=== PATIENT | male | born 1950 | race Caucasian/White ===

== ENCOUNTER 2016-10-16 11:40 | Inpatient (IN) | payer MEDICARE, BC ==
[~2016-10-16 11:40] MED LIST: Lactated Ringers 1,000 ML IV SCH; Lidocaine 1%/Sod Bicarbonate in NS 8.4% 1 ML Syringe PRN; Sodium Chloride 0.9% 10 ML Syringe FLUSH PRN
--- NOTE | 2016-10-16 13:02 | PCM.PREANE ---
Preanesthetic Assessment - Anesthesia/Transfusion/Family Hx Anesthesia History: No Prior Anesthesia Other Type of Anesthesia Reaction Comment: pt denies other reactions Family History of Anesthesia Reaction: No Transfusion History: No Prior Transfusion(s) - Review of Systems General: No Symptoms Pulmonary: No Symptoms Cardiovascular: No Symptoms Gastrointestinal: No Symptoms Neurological: Other (born with a stroke- cp) Other: Reports: Diabetes (borderline) - Physical Assessment NPO Status Date: 10/16/16 NPO Status Time: 03:30 O2 Sat by Pulse Oximetry: 99 Respiratory Rate: 16 Vital Signs: Last Vital Signs Temp 97.5 F 10/16/16 11:55 Pulse 64 10/16/16 11:55 Resp 16 10/16/16 11:55 BP 132/72 10/16/16 11:55 Pulse Ox 99 10/16/16 11:55 Height: 5 ft 7 in Weight: 71.35 kg ASA Class: 3 Mental Status: Alert & Oriented x3 Dentition: Reports: Dentures (top and bottom) Thyro-Mental Finger Breadths: 3 Mouth Opening Finger Breadths: 3 ROM/Head Extension: Full Lungs: Clear to Auscultation, Normal Respiratory Effort Cardiovascular: Regular Rate, Regular Rhythm - Lab Values: Laboratory Last Values POC Glucose 101 mg/dL (80-115) 10/16/16 12:11 - Imaging/EKG Impressions: 09/29/16 EKG SB 59 09/29/16 CXR interval right reverse TSA- late and screw cervical spine- left lung clear - Allergies Allergies/Adverse Reactions: Allergies Allergy/AdvReac Type Severity Reaction Status Date / Time meloxicam [From Mobic] Allergy Edema Verified 10/13/16 13:46 - Blood Blood Available: No - Acknowledgements Anesthesia Type Planned: Spinal (education given- agrees to spinal- will proceed to ga if unable to place spinal or at any time patient requests. Patient requests to be very sleepy) Pt an Appropriate Candidate for the Planned Anesthesia: Yes Alternatives and Risks of Anesthesia Discussed w Pt/Guardian: Yes Pt/Guardian Understands and Agrees with Anesthesia Plan: Yes PreAnesthesia Questionnaire Other HEENT History: hx candidal esophogitis, has glasses, dentures, dysphagia Cardiovascular History: Reports: High Cholesterol, Hypertension, Other (See Below) Other Cardiovascular History: bradycardia Respiratory History: Reports: None Gastrointestinal History: Reports: GERD Other Gastrointestinal History: hepatic hemangioma, dysphagia Genitourinary History: Reports: Renal Calculus Other Genitourinary History: hx renal insufficiency, Renal cyst R, malignant neoplasm of bladder, hematuria [employer] History: Reports: None Musculoskeletal History: Reports: Osteoarthritis, RA Other Musculoskeletal History: degenerative joint disease, several foot surgeries, carpal tunnel and R thumb surgery, elbow surgery, unilateral rotator cuff surgery, neck surgery C5-6-7, lapidus procedure, metatarsal osteomy with screw fixation to foot, capsulorrhaphy to 1st metatarsophalangeal joint, revision failed fusion of lapidus bunionectomy at the 1st metatarsal cuniform joint, L3 L4 hemilaminotomy, facetectomy, and decompression in the cauda equina for lateral recess and central spinal stenosis Neurological History: Reports: Cerebral Palsy, CVA, Migraines Other Neuro History: porencephalic cyst, 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 - Past Surgical History Head Surgeries/Procedures: Reports: None HEENT Surgical History: Reports: Cataract Surgery Other HEENT Surgeries/Procedures: full mouth/teeth extractions Cardiovascular Surgical History: Reports: None Respiratory Surgical History: Reports: None GI Surgical History: Reports: Appendectomy, Cholecystectomy, Colonoscopy, EGD, Hernia Repair/Other, Ella Fundoplication Other GI Surgeries/Procedures: lysis of adhesions, lap ella fundiplication Male Surgical History: Reports: None Endocrine Surgical History: Reports: None Neurological Surgical History: Reports: Other (See Below) Other Neurological Surgeries/Procedures: C5,6,7 SURGERY, L3L4 SURGERY Musculoskeletal Surgical History: Reports: Arthroscopic Procedure, Hip Replacement, Shoulder Surgery, Other (See Below) (heel cord lengthen left foot- bumion surgery) Other Musculoskeletal Surgeries/Procedures:: Left hip replaced in 2011, revision in 2014, neck surgery, foot surgery. Right shoulder revision 3-21-16. Oncologic Surgical History: Reports: None Dermatological Surgical History: Reports: Skin Biopsy - SUBSTANCE USE Smoking Status *Q: Former Smoker (quit 2002) Tobacco Use Within Last Twelve Months: No Second Hand Smoke Exposure: No Days Per Week of Alcohol Use: 0 Number of Drinks Per Day: 0 Total Drinks Per Week: 0 Recreational Drug Use History: No - HOME MEDS Home Medications: Home Meds Cholestyramine/Sucrose [Cholestyramine Powder] 4 gm PO DAILY 05/30/13 [History] Carbidopa/Levodopa [Carbidopa-Levodopa 25-100 Tab] 1 tab PO TID 12/07/14 [ History] ClonazePAM [KlonoPIN] 0.5 mg PO BEDTIME 10/13/16 [History] Nystatin [Nystatin] 1 dose PO QID 10/13/16 [History] Pantoprazole Sodium [Protonix] 40 mg PO DAILY 10/13/16 [History] Rosuvastatin Calcium [Rosuvastatin Calcium] 5 mg PO DAILY 10/13/16 [History] amLODIPine [Norvasc] 5 mg PO BEDTIME 10/13/16 [History] rOPINIRole HCl [Requip XL] 6 mg PO BEDTIME 10/13/16 [History] - CURRENT (IN HOUSE) MEDS Current Meds: Current Medications Aspirin (Ecotrin) 325 mg PO BID JASON Bisacodyl (Dulcolax) 5 mg PO DAILY PRN PRN Reason: Constipation Morphine Sulfate 8 mg/Epinephrine HCl 0.3 mg/Cefuroxime Sodium 750 mg/Ketorolac Tromethamine 30 mg/Sodium Chloride 27.9 ml 0 mg .XX ONETIME ONE Stop: 10/16/16 13:01 Cyclobenzaprine HCl (Flexeril) 10 mg PO TID PRN PRN Reason: Spasms Diphenhydramine HCl (Benadryl) 25 mg IVPUSH Q4H PRN PRN Reason: Nausea Docusate Sodium (Colace) 100 mg PO BID JASON Lactated Ringer's (Ringers, Lactated) 1,000 mls @ 125 mls/hr IV ASDIRECTED [facility] Stop: 10/16/16 23:00 Last Admin: 10/16/16 12:10 Dose: 125 mls/hr Cefazolin Sodium/Dextrose 2 gm (/ Premix) 50 mls @ 100 mls/hr IV Q8H [facility] Stop: 10/17/16 00:29 Lidocaine/Sodium Bicarbonate (Buffered Lidocaine 1% In Ns 8.4%) 0.25 ml .XX ONETIME PRN PRN Reason: Prior to IV Start Stop: 10/16/16 18:00 Last Admin: 10/16/16 12:10 Dose: 0.25 ml Magnesium Hydroxide (Milk Of Magnesia) 30 ml PO BID PRN PRN Reason: Constipation Morphine Sulfate (Morphine) 2 mg IVPUSH Q2H PRN PRN Reason: Breakthrough Pain Naloxone HCl (Narcan) 0.1 mg IVPUSH Q5M PRN PRN Reason: Oversedation Ondansetron HCl (Zofran) 4 mg IVPUSH Q6H PRN PRN Reason: Nausea/Vomiting Oxycodone/Acetaminophen (Percocet 325-5 Mg) 1 - 2 tab PO Q4H PRN PRN Reason: Pain Senna (Senna) 8.6 mg PO BID PRN PRN Reason: Constipation Sodium Chloride (Saline Flush) 10 ml FLUSH ASDIRECTED PRN PRN Reason: Keep Vein Open Stop: 10/16/16 18:00
[2016-10-16] MEDS ORDERED: ceFAZolin 1 GM Vial ONE (13:25)
[2016-10-16] MEDS ORDERED: Vancomycin 1 GM SDV ONE (13:25)
[2016-10-16] MEDS ORDERED: Ondansetron 4 MG/2 ML SDV ONE (13:41)
[2016-10-16] MEDS ORDERED: Propofol 200 MG/20 ML SDV ONE ×3 (13:41→16:26)
[2016-10-16] MEDS ORDERED: Lidocaine 1% 4 ML ONE (13:41)
[2016-10-16] MEDS ORDERED: Morphine PF 10 MG/10 ML SDV ONE (13:42)
[2016-10-16] MEDS ORDERED: fentaNYL 100 MCG/2 ML SDV ONE (13:42)
[2016-10-16] MEDS ORDERED: Magnesium Hydroxide 400 MG/5 ML Susp 30 ML Cup PO PRN (14:00)
[2016-10-16] MEDS ORDERED: Sennosides 8.6 MG Tab PO PRN (14:00)
[2016-10-16] MEDS ORDERED: Naloxone 0.4 MG/ML SDV IVPUSH PRN (14:00)
[2016-10-16] MEDS ORDERED: diphenhydrAMINE 50 MG/ML SDV IVPUSH PRN (14:00)
[2016-10-16] MEDS ORDERED: Bisacodyl 5 MG Tab PO PRN (14:00)
[2016-10-16] MEDS ORDERED: Ondansetron 4 MG/2 ML SDV IVPUSH PRN ×2 (14:00→15:00)
[2016-10-16] MEDS ORDERED: Morphine 2 MG/ML Syringe IVPUSH PRN (14:00)
[2016-10-16] MEDS ORDERED: Midazolam 1 MG/ML 2 ML SDV ONE (14:41)
[2016-10-16] MEDS ORDERED: fentaNYL 100 MCG/2 ML SDV IVPUSH PRN (15:00)
[2016-10-16] MEDS ORDERED: Lactated Ringers 1,000 ML ONE ×2 (15:00→16:17)
[2016-10-16] MEDS: Iodine/Sodium Iodide 2% Tincture 30 ML Bottle ONE ×2 (15:24→16:05)
[2016-10-16] MEDS: ceFAZolin 1 GM Vial ONE ×2 (15:25→16:09)
[2016-10-16] MEDS: Morphine 8 MG, EPINEPHrine 0.3 MG, Cefuroxime 750 MG, Ketorolac 30 MG, Sodium Chloride ... ONE ×15 (15:26→19:10)
[2016-10-16] MEDS: Bupivacaine 0.25% 30 ML SDV ONE ×2 (15:26→16:19)
[2016-10-16] MEDS: Vancomycin 1 GM SDV ONE ×2 (15:27→16:18)
[2016-10-16] MEDS ORDERED: ePHEDrine 50 MG/ML SDV ONE (16:42)
--- NOTE | 2016-10-16 17:07 | PCM.POSTAN ---
POST ANESTHESIA ASSESSMENT - MENTAL STATUS Mental Status: Alert, Oriented - VITAL SIGNS Pulse Rate: 55 SaO2: 97 Resp Rate: 11 Blood Pressure: 117/63 Temperature: 97.3 F - RESPIRATORY Respiratory Status: Respiratory Rate WNL, Airway Patent, O2 Saturation Stable, Supplemental Oxygen - CARDIOVASCULAR CV Status: Pulse Rate WNL, Blood Pressure Stable - GASTROINTESTINAL GI Status: No Symptoms - PAIN Pain Score: 0 - POST OP HYDRATION Hydration Status: Adequate & Stable
--- NOTE | 2016-10-16 19:42 | PCM.CONSN ---
- General Info Date of Service: 10/16/16 Subjective Update: 66 year old male no compliants post op, S/P right total knee arthroplasty. The patient has a history of OA. The hospitalist service has been consulted for medical management. Functional Status: Reports: Pain Controlled, Tolerating Diet, Urinating - Review of Systems General: Reports: No Symptoms HEENT: Reports: No Symptoms Pulmonary: Reports: No Symptoms Cardiovascular: Reports: No Symptoms Gastrointestinal: Reports: No Symptoms Genitourinary: Reports: No Symptoms Musculoskeletal: Reports: No Symptoms Skin: Reports: No Symptoms Neurological: Reports: No Symptoms Psychiatric: Reports: No Symptoms - Patient Data Vitals - Most Recent: Last Vital Signs Temp 36.1 C 10/16/16 17:56 Pulse 59 L 10/16/16 18:15 Resp 18 10/16/16 18:15 BP 111/74 10/16/16 18:15 Pulse Ox 99 10/16/16 18:35 Weight - Most Recent: 77.111 kg I&O - Last 24 Hours: Intake & Output 10/16/16 10/16/16 10/16/16 06:59 14:59 22:59 Intake Total 200 Output Total 250 Balance -50 Lab Results Last 24 Hours: Laboratory Results - last 24 hr 10/16/16 Range/Units 12:11 POC Glucose 101 (80-115) mg/dL Med Orders - Current: Current Medications Amlodipine Besylate (Norvasc) 5 mg PO BEDTIME JASON Aspirin (Ecotrin) 325 mg PO BID JASON Bisacodyl (Dulcolax) 5 mg PO DAILY PRN PRN Reason: Constipation Carbidopa/Levodopa (Sinemet 25-100 Mg) 1 tab PO TID JASON Cholestyramine Resin (Prevalite Packet) 4 gm PO DAILY JASON Clonazepam (Klonopin) 0.5 mg PO BEDTIME JASON Cyclobenzaprine HCl (Flexeril) 10 mg PO TID PRN PRN Reason: Spasms Diphenhydramine HCl (Benadryl) 25 mg IVPUSH Q4H PRN PRN Reason: Nausea Docusate Sodium (Colace) 100 mg PO BID JASON Cefazolin Sodium/Dextrose 2 gm (/ Premix) 50 mls @ 100 mls/hr IV Q8H JASON Stop: 10/17/16 14:14 Magnesium Hydroxide (Milk Of Magnesia) 30 ml PO BID PRN PRN Reason: Constipation Morphine Sulfate (Morphine) 2 mg IVPUSH Q2H PRN PRN Reason: Breakthrough Pain Naloxone HCl (Narcan) 0.1 mg IVPUSH Q5M PRN PRN Reason: Oversedation Non-Formulary Medication (Nystatin) 1 dose PO QID [facility] Non-Formulary Medication (Ropinirole Hcl [Requip Xl]) 6 mg PO BEDTIME JASON Ondansetron HCl (Zofran) 4 mg IVPUSH Q6H PRN PRN Reason: Nausea/Vomiting Oxycodone/Acetaminophen (Percocet 325-5 Mg) 1 - 2 tab PO Q4H PRN PRN Reason: Pain Pantoprazole Sodium (Protonix) 40 mg PO DAILY [facility] Rosuvastatin Calcium (Crestor) 5 mg PO DAILY JASON Senna (Senna) 8.6 mg PO BID PRN PRN Reason: Constipation Discontinued Medications Bupivacaine HCl (Marcaine 0.25%) Confirm Administered Dose 30 ml .ROUTE .STK- MED ONE Stop: 10/16/16 13:26 Last Admin: 10/16/16 16:19 Dose: 30 ml Cefazolin Sodium (Ancef) Confirm Administered Dose 2 gm .ROUTE .STK-MED ONE Stop: 10/16/16 13:42 Last Admin: 10/16/16 16:09 Dose: 2 gm Cefazolin Sodium (Ancef) Confirm Administered Dose 2 gm .ROUTE .STK-MED ONE Stop: 10/16/16 13:26 Morphine Sulfate 8 mg/Epinephrine HCl 0.3 mg/Cefuroxime Sodium 750 mg/Ketorolac Tromethamine 30 mg/Sodium Chloride 27.9 ml 0 mg .XX ONETIME ONE Stop: 10/16/16 13:01 Last Admin: 10/16/16 19:10 Dose: Not Given Ephedrine Sulfate (Ephedrine Sulfate) Confirm Administered Dose 50 mg .ROUTE .STK-MED ONE Stop: 10/16/16 16:43 Fentanyl (Sublimaze) Confirm Administered Dose 100 mcg .ROUTE .STK-MED ONE Stop: 10/16/16 13:43 Fentanyl (Sublimaze) 50 mcg IVPUSH Q5M PRN PRN Reason: Pain Stop: 10/16/16 19:00 Lactated Ringer's (Ringers, Lactated) 1,000 mls @ 125 mls/hr IV ASDIRECTED [facility] Stop: 10/16/16 23:00 Last Admin: 10/16/16 12:10 Dose: 125 mls/hr Lidocaine HCl (Xylocaine-Mpf 1%) Confirm Administered Dose 4 mls @ as directed .ROUTE .ST-MED ONE Stop: 10/16/16 13:42 Lactated Ringer's (Ringers, Lactated) Confirm Administered Dose 1,000 mls @ as directed .ROUTE .STK-MED ONE Stop: 10/16/16 15:01 Lactated Ringer's (Ringers, Lactated) Confirm Administered Dose 1,000 mls @ as directed .ROUTE .STK-MED ONE Stop: 10/16/16 16:18 Iodine (Iodine 2% Mild Tincture) Confirm Administered Dose 30 ml .ROUTE .ST- MED ONE Stop: 10/16/16 13:26 Last Admin: 10/16/16 16:05 Dose: 30 ml Lidocaine/Sodium Bicarbonate (Buffered Lidocaine 1% In Ns 8.4%) 0.25 ml .XX ONETIME PRN PRN Reason: Prior to IV Start Stop: 10/16/16 18:00 Last Admin: 10/16/16 12:10 Dose: 0.25 ml Midazolam HCl (Versed 1 Mg/Ml) Confirm Administered Dose 2 mg .ROUTE .ST-MED ONE Stop: 10/16/16 14:42 Morphine Sulfate (Duramorph Pf) Confirm Administered Dose 10 mg .ROUTE .ST-MED ONE Stop: 10/16/16 13:43 Ondansetron HCl (Zofran) Confirm Administered Dose 4 mg .ROUTE .ST-MED ONE Stop: 10/16/16 13:42 Ondansetron HCl (Zofran) 4 mg IVPUSH ONETIME PRN PRN Reason: Nausea/Vomiting Stop: 10/16/16 22:00 Propofol (Diprivan 20 Ml) Confirm Administered Dose 200 mg .ROUTE .STK-MED ONE Stop: 10/16/16 13:42 Propofol (Diprivan 20 Ml) Confirm Administered Dose 200 mg .ROUTE .STK-MED ONE Stop: 10/16/16 15:50 Propofol (Diprivan 20 Ml) Confirm Administered Dose 200 mg .ROUTE .STK-MED ONE Stop: 10/16/16 16:27 Sodium Chloride (Saline Flush) 10 ml FLUSH ASDIRECTED PRN PRN Reason: Keep Vein Open Stop: 10/16/16 18:00 Tranexamic Acid (Cyklokapron) Confirm Administered Dose 1,000 mg .ROUTE .STK- MED ONE Stop: 10/16/16 13:26 Last Admin: 10/16/16 16:23 Dose: 1,000 mg Vancomycin HCl (Vancomycin) Confirm Administered Dose 1 gm .ROUTE .STK-MED ONE Stop: 10/16/16 13:26 Vancomycin HCl (Vancomycin) Confirm Administered Dose 1 gm .ROUTE .STK-MED ONE Stop: 10/16/16 13:39 Last Admin: 10/16/16 16:18 Dose: 1 gm - Exam Quality Assessment: Supplemental Oxygen, Urine Catheter, DVT Prophylaxis General: Alert, Oriented, Cooperative, No Acute Distress HEENT: Pupils Equal, Pupils Reactive, EOMI Neck: Supple, Trachea Midline Lungs: Normal Respiratory Effort Cardiovascular: Regular Rate GI/Abdominal Exam: Normal Bowel Sounds, Soft, Non-Tender, No Distention (Male) Exam: Deferred Back Exam: Normal Inspection Extremities: Normal Inspection Skin: Warm Wound/Incisions: Dressing Dry and Intact Neurological: No New Focal Deficit Psy/Mental Status: Alert, Normal Affect, Normal Mood Consult PN Assessment/Plan POD#: 0 Procedures: Procedures ANTINUCLEAR ANTIBODIES (12/09/15) ASSAY OF FERRITIN (12/22/13) ASSAY OF FOLIC ACID RBC (12/22/13) ASSAY OF IRON (12/22/13) ASSAY OF TRANSFERRIN (12/22/13) C-REACTIVE PROTEIN (12/09/15) CHEST X-RAY 2VW FRONTAL&LATL (10/29/13) CINE/VID X-RAY THROAT/ESOPH (05/12/16) COMPLETE CBC W/AUTO DIFF WBC (12/09/15) COMPREHEN METABOLIC PANEL (04/26/15) CONTRST X-RAY UPPR GI TRACT (09/12/13) DRAIN/INJ JOINT/BURSA W/O US (09/14/15) DXA BONE DENSITY AXIAL (10/02/16) EGD BIOPSY SINGLE/MULTIPLE (06/02/13) EMERGENCY DEPT VISIT (02/20/15) ESOPH EGD DILATION <30 MM (06/02/13) FLUOROSCOPE EXAMINATION (04/26/15) GAIT TRAINING THERAPY (04/26/15) GLUCOSE BLOOD TEST (04/26/15) MANUAL THERAPY 1/> REGIONS (07/29/15) MASSAGE THERAPY (02/19/15) MEASURE BLOOD OXYGEN LEVEL (12/07/14) METABOLIC PANEL TOTAL CA (04/26/15) MOTION FLUOROSCOPY/SWALLOW (05/12/16) MR-STAPH DNA AMP PROBE (09/29/16) MRI JOINT UPR EXTREM W/O DYE (11/17/15) MRI NECK SPINE W/O DYE (08/30/15) MRI UPPER EXTREMITY W/O DYE (11/17/15) NEUROMUSCULAR REEDUCATION (07/29/15) OFFICE/OUTPATIENT VISIT EST (06/09/13) ORGANIC ACID SINGLE QUANT (12/25/13) OT EVALUATION (04/26/15) PT EVALUATION (07/29/15) RBC SED RATE AUTOMATED (12/09/15) REPAIR BICEPS TENDON (11/06/13) REPAIR ROTATOR CUFF CHRONIC (11/06/13) RHEUMATOID FACTOR TEST QUAL (12/09/15) ROUTINE VENIPUNCTURE (12/09/15) SELF CARE MNGMENT TRAINING (04/26/15) SHOULDER ARTHROSCOPY/SURGERY (11/06/13) SHOULDER ARTHROSCOPY/SURGERY (11/06/13) SHOULDER ARTHROSCOPY/SURGERY (11/06/13) SPECIAL STAINS GROUP 1 (06/02/13) THER/PROPH/DIAG INJ SC/IM (02/20/15) THERAPEUTIC ACTIVITIES (12/29/14) THERAPEUTIC EXERCISES (07/29/15) TISSUE EXAM BY PATHOLOGIST (06/02/13) ULTRASOUND THERAPY (02/19/15) URINALYSIS AUTO W/SCOPE (10/29/13) VITAMIN B-12 (12/22/13) X-RAY EXAM HIP UNI 2-3 VIEWS (02/20/15) X-RAY EXAM NECK SPINE 6/>VWS (07/20/15) X-RAY EXAM OF HIP (12/07/14) X-RAY EXAM OF HIP (08/06/14) X-RAY EXAM OF PELVIS (12/07/14) X-RAY EXAM OF SHOULDER (04/26/15) X-RAY EXAM OF SHOULDER (12/10/13) Problem List Initiated/Reviewed/Updated: Yes Plan: Impression: Right knee OA; right total knee arthroplasty Chronic DM type 2 HLD HTN RLS CP, spastic GERD Bladder CA CKD, stage 3 Plan: Pain/DVT medical mgt per primary service Home meds Daily labs CM/PT/OT
[2016-10-16] MEDS: amLODIPine 5 MG Tab PO SCH (20:58)
[2016-10-16] MEDS: ClonazePAM 0.5 MG Tab PO SCH (20:58)
[2016-10-16] MEDS: Carbidopa/Levodopa 25-100 MG Tab PO SCH (20:58)
[2016-10-16] MEDS: Docusate Sodium 100 MG Cap PO SCH (20:58)
[2016-10-16] MEDS: ceFAZolin 2 GM in Premix Bag 1 BAG IV SCH (20:59)
[2016-10-17] MEDS: Acetaminophen/oxyCODONE 325-5 MG Tab PO PRN ×3 (02:30→21:13)
[2016-10-17] MEDS: ceFAZolin 2 GM in Premix Bag 1 BAG IV SCH ×2 (05:31→13:59)
[2016-10-17] MEDS: Cyclobenzaprine 10 MG Tab PO PRN (06:08)
[2016-10-17] MEDS: rOPINIRole 1 MG Tab PO SCH ×4 (08:04→21:15)
[2016-10-17] MEDS: Nystatin Susp 100,000 Unit/ML 5 ML UD Cup PO SCH ×5 (08:04→21:11)
[2016-10-17] MEDS: Docusate Sodium 100 MG Cap PO SCH ×2 (08:10→21:12)
[2016-10-17] MEDS: Aspirin 325 MG Tab.EC PO SCH ×2 (08:12→21:12)
[2016-10-17] MEDS: metFORMIN 500 MG Tab PO SCH ×2 (08:13→17:29)
[2016-10-17] MEDS: Rosuvastatin 10 MG Tab PO SCH (08:13)
[2016-10-17] MEDS: Pantoprazole 40 MG Tab.CR PO SCH (08:13)
[2016-10-17] MEDS: Carbidopa/Levodopa 25-100 MG Tab PO SCH ×3 (08:14→21:12)
--- NOTE | 2016-10-17 08:29 | PCM.CONSN ---
- General Info Date of Service: 10/17/16 Admission Dx/Problem (Free Text): S/P right TKA Subjective Update: 66 year old male no compliants post op day 1, S/P right total knee arthroplasty. The patient has a history of OA, CVA at , multiple prior surgeries, and Diabetes. The hospitalist service has been consulted for medical management. Functional Status: Reports: Pain Controlled, Tolerating Diet, Ambulating, Incentive Spirometry Pain Score: 4 - Review of Systems General: Reports: No Symptoms HEENT: Reports: No Symptoms Pulmonary: Reports: No Symptoms Cardiovascular: Reports: No Symptoms Gastrointestinal: Reports: No Symptoms Genitourinary: Reports: No Symptoms Musculoskeletal: Reports: Leg Pain (at right knee), Other (left leg weakness) Skin: Reports: No Symptoms Neurological: Reports: No Symptoms Psychiatric: Reports: No Symptoms Systems Review Comment:: Patient reports having increased difficulty walking utilizing left leg. PT/OT will evaluate. - Patient Data Vitals - Most Recent: Last Vital Signs Temp 98.6 F 10/17/16 02:43 Pulse 69 10/17/16 02:43 Resp 16 10/17/16 07:00 BP 112/78 10/17/16 02:43 Pulse Ox 93 L 10/17/16 07:00 Weight - Most Recent: 169 lb 6.4 oz I&O - Last 24 Hours: Intake & Output 10/16/16 10/17/16 10/17/16 22:59 06:59 14:59 Intake Total 200 700 Output Total 700 325 Balance -500 375 Lab Results Last 24 Hours: Laboratory Results - last 24 hr 10/16/16 10/17/16 10/17/16 Range/Units 12:11 04:58 04:58 WBC 8.40 (4.23-9.07) K/mm3 RBC 3.81 L (4.63-6.08) M/mm3 Hgb 12.0 L (13.7-17.5) gm/L Hct 36.5 L (40.1-51.0) % MCV 95.8 H (79.0-92.2) fl MCH 31.5 (25.7-32.2) pg MCHC 32.9 (32.2-35.5) g/dl RDW Std Deviation 51.7 H (35.1-43.9) fL Plt Count 219 (163-337) K/mm3 MPV 10.2 (9.4-12.3) fl Sodium 139 (136-145) mEq/L Potassium 4.5 (3.5-5.1) mEq/L Chloride 104 (98-107) mEq/L Carbon Dioxide 27 (21-32) mEq/L Anion Gap 12.5 (5-15) BUN 19 H (7-18) mg/dL Creatinine 1.6 H (0.7-1.3) mg/dL Est Cr Clr Drug Dosing 42.46 mL/min Estimated GFR (MDRD) 43 (>60) mL/min BUN/Creatinine Ratio 11.9 L (14-18) Glucose 95 (80-115) mg/dL POC Glucose 101 (80-115) mg/dL Calcium 8.7 (8.5-10.1) mg/dL Total Bilirubin 0.9 (0.2-1.0) mg/dL AST 98 H (15-37) U/L ALT 26 (16-63) U/L Alkaline Phosphatase 123 H (46-116) U/L Total Protein 6.2 L (6.4-8.2) g/dl Albumin 3.3 L (3.4-5.0) g/dl Globulin 2.9 gm/dL Albumin/Globulin Ratio 1.1 (1-2) 10/17/16 Range/Units 06:47 WBC (4.23-9.07) K/mm3 RBC (4.63-6.08) M/mm3 Hgb (13.7-17.5) gm/L Hct (40.1-51.0) % MCV (79.0-92.2) fl MCH (25.7-32.2) pg MCHC (32.2-35.5) g/dl RDW Std Deviation (35.1-43.9) fL Plt Count (163-337) K/mm3 MPV (9.4-12.3) fl Sodium (136-145) mEq/L Potassium (3.5-5.1) mEq/L Chloride (98-107) mEq/L Carbon Dioxide (21-32) mEq/L Anion Gap (5-15) BUN (7-18) mg/dL Creatinine (0.7-1.3) mg/dL Est Cr Clr Drug Dosing mL/min Estimated GFR (MDRD) (>60) mL/min BUN/Creatinine Ratio (14-18) Glucose (80-115) mg/dL POC Glucose 104 (80-115) mg/dL Calcium (8.5-10.1) mg/dL Total Bilirubin (0.2-1.0) mg/dL AST (15-37) U/L ALT (16-63) U/L Alkaline Phosphatase (46-116) U/L Total Protein (6.4-8.2) g/dl Albumin (3.4-5.0) g/dl Globulin gm/dL Albumin/Globulin Ratio (1-2) Med Orders - Current: Current Medications Amlodipine Besylate (Norvasc) 5 mg PO BEDTIME [facility] Last Admin: 10/16/16 20:58 Dose: 5 mg Aspirin (Ecotrin) 325 mg PO BID [facility] Last Admin: 10/17/16 08:12 Dose: 325 mg Bisacodyl (Dulcolax) 5 mg PO DAILY PRN PRN Reason: Constipation Carbidopa/Levodopa (Sinemet 25-100 Mg) 1 tab PO TID [facility] Last Admin: 10/17/16 08:14 Dose: 1 tab Cholestyramine Resin (Prevalite Packet) 4 gm PO DAILY [facility] Clonazepam (Klonopin) 0.5 mg PO BEDTIME [facility] Last Admin: 10/16/16 20:58 Dose: 0.5 mg Cyclobenzaprine HCl (Flexeril) 10 mg PO TID PRN PRN Reason: Spasms Last Admin: 10/17/16 06:08 Dose: 10 mg Diphenhydramine HCl (Benadryl) 25 mg IVPUSH Q4H PRN PRN Reason: Nausea Docusate Sodium (Colace) 100 mg PO BID [facility] Last Admin: 10/17/16 08:10 Dose: 100 mg Cefazolin Sodium/Dextrose 2 gm (/ Premix) 50 mls @ 100 mls/hr IV Q8H [facility] Stop: 10/17/16 14:14 Last Admin: 10/17/16 05:31 Dose: 100 mls/hr Magnesium Hydroxide (Milk Of Magnesia) 30 ml PO BID PRN PRN Reason: Constipation Metformin HCl (Glucophage) 250 mg PO BIDMEALS [facility] Last Admin: 10/17/16 08:13 Dose: 250 mg Morphine Sulfate (Morphine) 2 mg IVPUSH Q2H PRN PRN Reason: Breakthrough Pain Naloxone HCl (Narcan) 0.1 mg IVPUSH Q5M PRN PRN Reason: Oversedation Nystatin (Mycostatin) 5 ml PO QID [facility] Last Admin: 10/17/16 08:14 Dose: 5 ml Ondansetron HCl (Zofran) 4 mg IVPUSH Q6H PRN PRN Reason: Nausea/Vomiting Oxycodone/Acetaminophen (Percocet 325-5 Mg) 1 - 2 tab PO Q4H PRN PRN Reason: Pain Last Admin: 10/17/16 02:30 Dose: 2 tab Pantoprazole Sodium (Protonix) 40 mg PO DAILY [facility] Last Admin: 10/17/16 08:13 Dose: 40 mg Ropinirole HCl (Requip) 2 mg PO TID [facility] Last Admin: 10/17/16 08:12 Dose: 2 mg Rosuvastatin Calcium (Crestor) 5 mg PO DAILY [facility] Last Admin: 10/17/16 08:13 Dose: 5 mg Senna (Senna) 8.6 mg PO BID PRN PRN Reason: Constipation Discontinued Medications Bupivacaine HCl (Marcaine 0.25%) Confirm Administered Dose 30 ml .ROUTE .STK- MED ONE Stop: 10/16/16 13:26 Last Admin: 10/16/16 16:19 Dose: 30 ml Cefazolin Sodium (Ancef) Confirm Administered Dose 2 gm .ROUTE .STK-MED ONE Stop: 10/16/16 13:42 Last Admin: 10/16/16 16:09 Dose: 2 gm Cefazolin Sodium (Ancef) Confirm Administered Dose 2 gm .ROUTE .STK-MED ONE Stop: 10/16/16 13:26 Morphine Sulfate 8 mg/Epinephrine HCl 0.3 mg/Cefuroxime Sodium 750 mg/Ketorolac Tromethamine 30 mg/Sodium Chloride 27.9 ml 0 mg .XX ONETIME ONE Stop: 10/16/16 13:01 Last Admin: 10/16/16 19:10 Dose: Not Given Ephedrine Sulfate (Ephedrine Sulfate) Confirm Administered Dose 50 mg .ROUTE .STK-MED ONE Stop: 10/16/16 16:43 Fentanyl (Sublimaze) Confirm Administered Dose 100 mcg .ROUTE .STK-MED ONE Stop: 10/16/16 13:43 Fentanyl (Sublimaze) 50 mcg IVPUSH Q5M PRN PRN Reason: Pain Stop: 10/16/16 19:00 Lactated Ringer's (Ringers, Lactated) 1,000 mls @ 125 mls/hr IV ASDIRECTED JASON Stop: 10/16/16 23:00 Last Admin: 10/16/16 12:10 Dose: 125 mls/hr Lidocaine HCl (Xylocaine-Mpf 1%) Confirm Administered Dose 4 mls @ as directed .ROUTE .STK-MED ONE Stop: 10/16/16 13:42 Lactated Ringer's (Ringers, Lactated) Confirm Administered Dose 1,000 mls @ as directed .ROUTE .STK-MED ONE Stop: 10/16/16 15:01 Lactated Ringer's (Ringers, Lactated) Confirm Administered Dose 1,000 mls @ as directed .ROUTE .STK-MED ONE Stop: 10/16/16 16:18 Iodine (Iodine 2% Mild Tincture) Confirm Administered Dose 30 ml .ROUTE .STK- MED ONE Stop: 10/16/16 13:26 Last Admin: 10/16/16 16:05 Dose: 30 ml Lidocaine/Sodium Bicarbonate (Buffered Lidocaine 1% In Ns 8.4%) 0.25 ml .XX ONETIME PRN PRN Reason: Prior to IV Start Stop: 10/16/16 18:00 Last Admin: 10/16/16 12:10 Dose: 0.25 ml Midazolam HCl (Versed 1 Mg/Ml) Confirm Administered Dose 2 mg .ROUTE .STK-MED ONE Stop: 10/16/16 14:42 Morphine Sulfate (Duramorph Pf) Confirm Administered Dose 10 mg .ROUTE .STK-MED ONE Stop: 10/16/16 13:43 Ondansetron HCl (Zofran) Confirm Administered Dose 4 mg .ROUTE .STK-MED ONE Stop: 10/16/16 13:42 Ondansetron HCl (Zofran) 4 mg IVPUSH ONETIME PRN PRN Reason: Nausea/Vomiting Stop: 10/16/16 22:00 Propofol (Diprivan 20 Ml) Confirm Administered Dose 200 mg .ROUTE .STK-MED ONE Stop: 10/16/16 13:42 Propofol (Diprivan 20 Ml) Confirm Administered Dose 200 mg .ROUTE .STK-MED ONE Stop: 10/16/16 15:50 Propofol (Diprivan 20 Ml) Confirm Administered Dose 200 mg .ROUTE .STK-MED ONE Stop: 10/16/16 16:27 Sodium Chloride (Saline Flush) 10 ml FLUSH ASDIRECTED PRN PRN Reason: Keep Vein Open Stop: 10/16/16 18:00 Tranexamic Acid (Cyklokapron) Confirm Administered Dose 1,000 mg .ROUTE .STK- MED ONE Stop: 10/16/16 13:26 Last Admin: 10/16/16 16:23 Dose: 1,000 mg Vancomycin HCl (Vancomycin) Confirm Administered Dose 1 gm .ROUTE .STK-MED ONE Stop: 10/16/16 13:26 Vancomycin HCl (Vancomycin) Confirm Administered Dose 1 gm .ROUTE .STK-MED ONE Stop: 10/16/16 13:39 Last Admin: 10/16/16 16:18 Dose: 1 gm - Exam Quality Assessment: DVT Prophylaxis General: Alert, Oriented, Cooperative HEENT: Pupils Equal, Pupils Reactive, Mucous Membr. Moist/[place] Neck: Supple, Trachea Midline, No JVD Lungs: Clear to Auscultation, Normal Respiratory Effort Cardiovascular: Regular Rate, Regular Rhythm GI/Abdominal Exam: Normal Bowel Sounds, Soft, Non-Tender (Male) Exam: Deferred Back Exam: Normal Inspection Extremities: Normal Inspection, Other (Right leg bandaged from surgery. ) Peripheral Pulses: 2+: Radial (L), Radial (R), Posterior Tibial (L), Posterior Tibial (R), Dorsalis Pedis (L), Dorsalis Pedis (R) Skin: Warm, Dry, Intact Wound/Incisions: No Drainage Neurological: Normal Speech, Normal Tone, Sensation Intact, Other (Increased left leg weakness - no other deficits ) Psy/Mental Status: Alert, Normal Affect, Normal Mood Consult PN Assessment/Plan POD#: 1 Procedures: Procedures ANTINUCLEAR ANTIBODIES (12/09/15) ASSAY OF FERRITIN (12/22/13) ASSAY OF FOLIC ACID RBC (12/22/13) ASSAY OF IRON (12/22/13) ASSAY OF TRANSFERRIN (12/22/13) C-REACTIVE PROTEIN (12/09/15) CHEST X-RAY 2VW FRONTAL&LATL (10/29/13) CINE/VID X-RAY THROAT/ESOPH (05/12/16) COMPLETE CBC W/AUTO DIFF WBC (12/09/15) COMPREHEN METABOLIC PANEL (04/26/15) CONTRST X-RAY UPPR GI TRACT (09/12/13) DRAIN/INJ JOINT/BURSA W/O US (09/14/15) DXA BONE DENSITY AXIAL (10/02/16) EGD BIOPSY SINGLE/MULTIPLE (06/02/13) EMERGENCY DEPT VISIT (02/20/15) ESOPH EGD DILATION <30 MM (06/02/13) FLUOROSCOPE EXAMINATION (04/26/15) GAIT TRAINING THERAPY (04/26/15) GLUCOSE BLOOD TEST (04/26/15) MANUAL THERAPY 1/> REGIONS (07/29/15) MASSAGE THERAPY (02/19/15) MEASURE BLOOD OXYGEN LEVEL (12/07/14) METABOLIC PANEL TOTAL CA (04/26/15) MOTION FLUOROSCOPY/SWALLOW (05/12/16) MR-STAPH DNA AMP PROBE (09/29/16) MRI JOINT UPR EXTREM W/O DYE (11/17/15) MRI NECK SPINE W/O DYE (08/30/15) MRI UPPER EXTREMITY W/O DYE (11/17/15) NEUROMUSCULAR REEDUCATION (07/29/15) OFFICE/OUTPATIENT VISIT EST (06/09/13) ORGANIC ACID SINGLE QUANT (12/25/13) OT EVALUATION (04/26/15) PT EVALUATION (07/29/15) RBC SED RATE AUTOMATED (12/09/15) REPAIR BICEPS TENDON (11/06/13) REPAIR ROTATOR CUFF CHRONIC (11/06/13) RHEUMATOID FACTOR TEST QUAL (12/09/15) ROUTINE VENIPUNCTURE (12/09/15) SELF CARE MNGMENT TRAINING (04/26/15) SHOULDER ARTHROSCOPY/SURGERY (11/06/13) SHOULDER ARTHROSCOPY/SURGERY (11/06/13) SHOULDER ARTHROSCOPY/SURGERY (11/06/13) SPECIAL STAINS GROUP 1 (06/02/13) THER/PROPH/DIAG INJ SC/IM (02/20/15) THERAPEUTIC ACTIVITIES (12/29/14) THERAPEUTIC EXERCISES (07/29/15) TISSUE EXAM BY PATHOLOGIST (06/02/13) ULTRASOUND THERAPY (02/19/15) URINALYSIS AUTO W/SCOPE (10/29/13) VITAMIN B-12 (12/22/13) X-RAY EXAM HIP UNI 2-3 VIEWS (02/20/15) X-RAY EXAM NECK SPINE 6/>VWS (07/20/15) X-RAY EXAM OF HIP (12/07/14) X-RAY EXAM OF HIP (08/06/14) X-RAY EXAM OF PELVIS (12/07/14) X-RAY EXAM OF SHOULDER (04/26/15) X-RAY EXAM OF SHOULDER (12/10/13) (1) Status post right knee replacement SNOMED Code(s): 274261595, 090000677, 875908313 Code(s): Z96.651 - PRESENCE OF RIGHT ARTIFICIAL KNEE JOINT Priority: High Current Visit: Yes (2) Hemiparesis affecting left side as late effect of stroke SNOMED Code(s): 434960471 Code(s): I69.354 - HEMIPLGA FOLLOWING CEREBRAL INFRC AFFECTING LEFT NONDOM SIDE Priority: Low Current Visit: No (3) CKD (chronic kidney disease) stage 3, GFR 30-59 ml/min SNOMED Code(s): 705615562 Code(s): N18.3 - CHRONIC KIDNEY DISEASE, STAGE 3 (MODERATE) Priority: High Current Visit: Yes (4) Osteophyte, right knee SNOMED Code(s): 101189894, 013831711 Code(s): M25.761 - OSTEOPHYTE, RIGHT KNEE Priority: High Current Visit: Yes (5) History of bladder cancer SNOMED Code(s): 487066145 Code(s): Z85.51 - PERSONAL HISTORY OF MALIGNANT NEOPLASM OF BLADDER Priority: Low Current Visit: No (6) GERD (gastroesophageal reflux disease) SNOMED Code(s): 464944906 Code(s): K21.9 - GASTRO-ESOPHAGEAL REFLUX DISEASE WITHOUT ESOPHAGITIS Priority: Low Current Visit: No Qualifiers: Esophagitis presence: esophagitis presence not specified Qualified Code(s) : K21.9 - Gastro-esophageal reflux disease without esophagitis Problem List Initiated/Reviewed/Updated: Yes My Orders Last 24 Hours: My Active Orders 10/17/16 07:00 metFORMIN [Glucophage] 250 mg PO BIDMEALS Plan: Impression: Right knee OA; right total knee arthroplasty - post operative day 1 Chronic DM type 2 HLD HTN RLS CP, spastic GERD Bladder CA CKD, stage 3 Plan: Pain/DVT medical mgt per primary service Home meds Daily labs CM/PT/OT Sw/CM for discharge planning. He is a full code.
[2016-10-17] MEDS: Cholestyramine/Aspartame Powder 4 GM Packet PO SCH (09:01)
--- NOTE | 2016-10-17 10:29 | PCM48HPAN ---
Post Anesthesia Note - EVALUATION WITHIN 48HRS OF ANESTHETIC Vital Signs in Normal Range: Yes Patient Participated in Evaluation: Yes Respiratory Function Stable: Yes Airway Patent: Yes Cardiovascular Function Stable: Yes Hydration Status Stable: Yes Pain Control Satisfactory: No Nausea and Vomiting Control Satisfactory: Yes Mental Status Recovered: Yes - COMMENTS/OBSERVATIONS Free Text/Narrative:: Patient denied any residual numbness or tingling to lower extremities, headache , or back pain. Patient did state he did not get too much sleep last night due to pain and is having pain now to his right knee. Pt has been up ambulating and is now resting in his chair.
--- NOTE | 2016-10-17 16:47 | PCM.SURGPN ---
- General Info Date of Service: 10/17/16 POD#: 1 Functional Status: Reports: Pain Controlled, Tolerating Diet, Urinating, Other ( The pt has required mod assistance with ambulation.) - Patient Data Vitals - Most Recent: Last Vital Signs Temp 98.8 F 10/17/16 16:18 Pulse 72 10/17/16 16:18 Resp 18 10/17/16 16:18 BP 122/50 L 10/17/16 16:18 Pulse Ox 94 L 10/17/16 16:18 Weight - Most Recent: 169 lb 6.4 oz I&O - Last 24 Hours: Intake & Output 10/17/16 10/17/16 10/17/16 06:59 14:59 22:59 Intake Total 700 120 Output Total 325 Balance 375 120 Lab Results Last 24 Hrs: Laboratory Results - last 24 hr 10/17/16 10/17/16 10/17/16 Range/Units 04:58 04:58 06:47 WBC 8.40 (4.23-9.07) K/mm3 RBC 3.81 L (4.63-6.08) M/mm3 Hgb 12.0 L (13.7-17.5) gm/L Hct 36.5 L (40.1-51.0) % MCV 95.8 H (79.0-92.2) fl MCH 31.5 (25.7-32.2) pg MCHC 32.9 (32.2-35.5) g/dl RDW Std Deviation 51.7 H (35.1-43.9) fL Plt Count 219 (163-337) K/mm3 MPV 10.2 (9.4-12.3) fl Sodium 139 (136-145) mEq/L Potassium 4.5 (3.5-5.1) mEq/L Chloride 104 (98-107) mEq/L Carbon Dioxide 27 (21-32) mEq/L Anion Gap 12.5 (5-15) BUN 19 H (7-18) mg/dL Creatinine 1.6 H (0.7-1.3) mg/dL Est Cr Clr Drug Dosing 42.46 mL/min Estimated GFR (MDRD) 43 (>60) mL/min BUN/Creatinine Ratio 11.9 L (14-18) Glucose 95 (80-115) mg/dL POC Glucose 104 (80-115) mg/dL Calcium 8.7 (8.5-10.1) mg/dL Total Bilirubin 0.9 (0.2-1.0) mg/dL AST 98 H (15-37) U/L ALT 26 (16-63) U/L Alkaline Phosphatase 123 H (46-116) U/L Total Protein 6.2 L (6.4-8.2) g/dl Albumin 3.3 L (3.4-5.0) g/dl Globulin 2.9 gm/dL Albumin/Globulin Ratio 1.1 (1-2) 10/17/16 Range/Units 12:09 WBC (4.23-9.07) K/mm3 RBC (4.63-6.08) M/mm3 Hgb (13.7-17.5) gm/L Hct (40.1-51.0) % MCV (79.0-92.2) fl MCH (25.7-32.2) pg MCHC (32.2-35.5) g/dl RDW Std Deviation (35.1-43.9) fL Plt Count (163-337) K/mm3 MPV (9.4-12.3) fl Sodium (136-145) mEq/L Potassium (3.5-5.1) mEq/L Chloride (98-107) mEq/L Carbon Dioxide (21-32) mEq/L Anion Gap (5-15) BUN (7-18) mg/dL Creatinine (0.7-1.3) mg/dL Est Cr Clr Drug Dosing mL/min Estimated GFR (MDRD) (>60) mL/min BUN/Creatinine Ratio (14-18) Glucose (80-115) mg/dL POC Glucose 131 H (80-115) mg/dL Calcium (8.5-10.1) mg/dL Total Bilirubin (0.2-1.0) mg/dL AST (15-37) U/L ALT (16-63) U/L Alkaline Phosphatase (46-116) U/L Total Protein (6.4-8.2) g/dl Albumin (3.4-5.0) g/dl Globulin gm/dL Albumin/Globulin Ratio (1-2) Med Orders - Current: Current Medications Amlodipine Besylate (Norvasc) 5 mg PO BEDTIME [facility] Last Admin: 10/16/16 20:58 Dose: 5 mg Aspirin (Ecotrin) 325 mg PO BID [facility] Last Admin: 10/17/16 08:12 Dose: 325 mg Bisacodyl (Dulcolax) 5 mg PO DAILY PRN PRN Reason: Constipation Carbidopa/Levodopa (Sinemet 25-100 Mg) 1 tab PO TID [facility] Last Admin: 10/17/16 14:42 Dose: 1 tab Cholestyramine Resin (Prevalite Packet) 4 gm PO DAILY [facility] Last Admin: 10/17/16 09:01 Dose: 4 gm Clonazepam (Klonopin) 0.5 mg PO BEDTIME [facility] Last Admin: 10/16/16 20:58 Dose: 0.5 mg Cyclobenzaprine HCl (Flexeril) 10 mg PO TID PRN PRN Reason: Spasms Last Admin: 10/17/16 06:08 Dose: 10 mg Diphenhydramine HCl (Benadryl) 25 mg IVPUSH Q4H PRN PRN Reason: Nausea Docusate Sodium (Colace) 100 mg PO BID [facility] Last Admin: 10/17/16 08:10 Dose: 100 mg Magnesium Hydroxide (Milk Of Magnesia) 30 ml PO BID PRN PRN Reason: Constipation Metformin HCl (Glucophage) 250 mg PO BIDMEALS [facility] Last Admin: 10/17/16 08:13 Dose: 250 mg Morphine Sulfate (Morphine) 2 mg IVPUSH Q2H PRN PRN Reason: Breakthrough Pain Naloxone HCl (Narcan) 0.1 mg IVPUSH Q5M PRN PRN Reason: Oversedation Nystatin (Mycostatin) 5 ml PO QID [facility] Last Admin: 10/17/16 14:01 Dose: 5 ml Ondansetron HCl (Zofran) 4 mg IVPUSH Q6H PRN PRN Reason: Nausea/Vomiting Oxycodone/Acetaminophen (Percocet 325-5 Mg) 1 - 2 tab PO Q4H PRN PRN Reason: Pain Last Admin: 10/17/16 10:34 Dose: 2 tab Pantoprazole Sodium (Protonix) 40 mg PO DAILY [facility] Last Admin: 10/17/16 08:13 Dose: 40 mg Ropinirole HCl (Requip) 2 mg PO TID [facility] Last Admin: 10/17/16 14:41 Dose: 2 mg Rosuvastatin Calcium (Crestor) 5 mg PO DAILY [facility] Last Admin: 10/17/16 08:13 Dose: 5 mg Senna (Senna) 8.6 mg PO BID PRN PRN Reason: Constipation Discontinued Medications Bupivacaine HCl (Marcaine 0.25%) Confirm Administered Dose 30 ml .ROUTE .STK- MED ONE Stop: 10/16/16 13:26 Last Admin: 10/16/16 16:19 Dose: 30 ml Cefazolin Sodium (Ancef) Confirm Administered Dose 2 gm .ROUTE .STK-MED ONE Stop: 10/16/16 13:42 Last Admin: 10/16/16 16:09 Dose: 2 gm Cefazolin Sodium (Ancef) Confirm Administered Dose 2 gm .ROUTE .STK-MED ONE Stop: 10/16/16 13:26 Morphine Sulfate 8 mg/Epinephrine HCl 0.3 mg/Cefuroxime Sodium 750 mg/Ketorolac Tromethamine 30 mg/Sodium Chloride 27.9 ml 0 mg .XX ONETIME ONE Stop: 10/16/16 13:01 Last Admin: 10/16/16 19:10 Dose: Not Given Ephedrine Sulfate (Ephedrine Sulfate) Confirm Administered Dose 50 mg .ROUTE .STK-MED ONE Stop: 10/16/16 16:43 Fentanyl (Sublimaze) Confirm Administered Dose 100 mcg .ROUTE .STK-MED ONE Stop: 10/16/16 13:43 Fentanyl (Sublimaze) 50 mcg IVPUSH Q5M PRN PRN Reason: Pain Stop: 10/16/16 19:00 Lactated Ringer's (Ringers, Lactated) 1,000 mls @ 125 mls/hr IV ASDIRECTED [facility] Stop: 10/16/16 23:00 Last Admin: 10/16/16 12:10 Dose: 125 mls/hr Cefazolin Sodium/Dextrose 2 gm (/ Premix) 50 mls @ 100 mls/hr IV Q8H [facility] Stop: 10/17/16 14:14 Last Admin: 10/17/16 13:59 Dose: 100 mls/hr Lidocaine HCl (Xylocaine-Mpf 1%) Confirm Administered Dose 4 mls @ as directed .ROUTE .STK-MED ONE Stop: 10/16/16 13:42 Lactated Ringer's (Ringers, Lactated) Confirm Administered Dose 1,000 mls @ as directed .ROUTE .STK-MED ONE Stop: 10/16/16 15:01 Lactated Ringer's (Ringers, Lactated) Confirm Administered Dose 1,000 mls @ as directed .ROUTE .STK-MED ONE Stop: 10/16/16 16:18 Iodine (Iodine 2% Mild Tincture) Confirm Administered Dose 30 ml .ROUTE .STK- MED ONE Stop: 10/16/16 13:26 Last Admin: 10/16/16 16:05 Dose: 30 ml Lidocaine/Sodium Bicarbonate (Buffered Lidocaine 1% In Ns 8.4%) 0.25 ml .XX ONETIME PRN PRN Reason: Prior to IV Start Stop: 10/16/16 18:00 Last Admin: 10/16/16 12:10 Dose: 0.25 ml Midazolam HCl (Versed 1 Mg/Ml) Confirm Administered Dose 2 mg .ROUTE .STK-MED ONE Stop: 10/16/16 14:42 Morphine Sulfate (Duramorph Pf) Confirm Administered Dose 10 mg .ROUTE .STK-MED ONE Stop: 10/16/16 13:43 Ondansetron HCl (Zofran) Confirm Administered Dose 4 mg .ROUTE .STK-MED ONE Stop: 10/16/16 13:42 Ondansetron HCl (Zofran) 4 mg IVPUSH ONETIME PRN PRN Reason: Nausea/Vomiting Stop: 10/16/16 22:00 Propofol (Diprivan 20 Ml) Confirm Administered Dose 200 mg .ROUTE .STK-MED ONE Stop: 10/16/16 13:42 Propofol (Diprivan 20 Ml) Confirm Administered Dose 200 mg .ROUTE .STK-MED ONE Stop: 10/16/16 15:50 Propofol (Diprivan 20 Ml) Confirm Administered Dose 200 mg .ROUTE .STK-MED ONE Stop: 10/16/16 16:27 Sodium Chloride (Saline Flush) 10 ml FLUSH ASDIRECTED PRN PRN Reason: Keep Vein Open Stop: 10/16/16 18:00 Tranexamic Acid (Cyklokapron) Confirm Administered Dose 1,000 mg .ROUTE .STK- MED ONE Stop: 10/16/16 13:26 Last Admin: 10/16/16 16:23 Dose: 1,000 mg Vancomycin HCl (Vancomycin) Confirm Administered Dose 1 gm .ROUTE .STK-MED ONE Stop: 10/16/16 13:26 Vancomycin HCl (Vancomycin) Confirm Administered Dose 1 gm .ROUTE .STK-MED ONE Stop: 10/16/16 13:39 Last Admin: 10/16/16 16:18 Dose: 1 gm - Exam Wound/Incisions: Dressing Dry and Intact General: Alert, Cooperative, No Acute Distress Lungs: Normal Respiratory Effort Extremities: Other (Longstanding LLE weakness. Amrk's sign negative. NVS intact for RLE. ) - Problem List Review Problem List Initiated/Reviewed/Updated: Yes - My Orders Last 24 Hours: Active Orders 24 hr Category Date Time Status Blood Glucose Check, Bedside [] Care 10/17/16 05:57 Active Wolf Catheter Insertion [Insert Urinary Catheter] [OM. Care 10/17/16 16:00 Ordered PC] Q24H Urinary Catheter Assessment [] ASDIRECTED Care 10/17/16 15:48 Active Regular Diet [DIET] Diet 10/16/16 Dinner Active Aspirin [Ecotrin] Med 10/17/16 09:00 Active 325 mg PO BID Carbidopa/Levodopa [Sinemet 25-100 mg] Med 10/16/16 21:00 Active 1 tab PO TID Cholestyramine/Aspartame [Prevalite Packet] Med 10/17/16 09:00 Active 4 gm PO DAILY ClonazePAM [KlonoPIN] Med 10/16/16 21:00 Active 0.5 mg PO BEDTIME Docusate Sodium [Colace] Med 10/16/16 21:00 Active 100 mg PO BID Nystatin [Mycostatin] Med 10/16/16 21:00 Active 5 ml PO QID Pantoprazole [ProTONIX] Med 10/17/16 09:00 Active 40 mg PO DAILY Rosuvastatin [Crestor] Med 10/17/16 09:00 Active 5 mg PO DAILY amLODIPine [Norvasc] Med 10/16/16 21:00 Active 5 mg PO BEDTIME metFORMIN [Glucophage] Med 10/17/16 07:00 Active 250 mg PO BIDMEALS rOPINIRole [Requip] Med 10/16/16 21:00 Active 2 mg PO TID Medication Orders Amlodipine Besylate (Norvasc) 5 mg PO BEDTIME [facility] Last Admin: 10/16/16 20:58 Dose: 5 mg Aspirin (Ecotrin) 325 mg PO BID [facility] Last Admin: 10/17/16 08:12 Dose: 325 mg Bisacodyl (Dulcolax) 5 mg PO DAILY PRN PRN Reason: Constipation Carbidopa/Levodopa (Sinemet 25-100 Mg) 1 tab PO TID [facility] Last Admin: 10/17/16 14:42 Dose: 1 tab Admin: 10/17/16 08:14 Dose: 1 tab Admin: 10/16/16 20:58 Dose: 1 tab Cholestyramine Resin (Prevalite Packet) 4 gm PO DAILY [facility] Last Admin: 10/17/16 09:01 Dose: 4 gm Clonazepam (Klonopin) 0.5 mg PO BEDTIME [facility] Last Admin: 10/16/16 20:58 Dose: 0.5 mg Cyclobenzaprine HCl (Flexeril) 10 mg PO TID PRN PRN Reason: Spasms Last Admin: 10/17/16 06:08 Dose: 10 mg Diphenhydramine HCl (Benadryl) 25 mg IVPUSH Q4H PRN PRN Reason: Nausea Docusate Sodium (Colace) 100 mg PO BID [facility] Last Admin: 10/17/16 08:10 Dose: 100 mg Admin: 10/16/16 20:58 Dose: 100 mg Magnesium Hydroxide (Milk Of Magnesia) 30 ml PO BID PRN PRN Reason: Constipation Metformin HCl (Glucophage) 250 mg PO BIDMEALS [facility] Last Admin: 10/17/16 08:13 Dose: 250 mg Morphine Sulfate (Morphine) 2 mg IVPUSH Q2H PRN PRN Reason: Breakthrough Pain Naloxone HCl (Narcan) 0.1 mg IVPUSH Q5M PRN PRN Reason: Oversedation Nystatin (Mycostatin) 5 ml PO QID [facility] Last Admin: 10/17/16 14:01 Dose: 5 ml Admin: 10/17/16 08:14 Dose: 5 ml Admin: 10/17/16 08:04 Dose: Ondansetron HCl (Zofran) 4 mg IVPUSH Q6H PRN PRN Reason: Nausea/Vomiting Oxycodone/Acetaminophen (Percocet 325-5 Mg) 1 - 2 tab PO Q4H PRN PRN Reason: Pain Last Admin: 10/17/16 10:34 Dose: 2 tab Admin: 10/17/16 02:30 Dose: 2 tab Pantoprazole Sodium (Protonix) 40 mg PO DAILY [facility] Last Admin: 10/17/16 08:13 Dose: 40 mg Ropinirole HCl (Requip) 2 mg PO TID [facility] Last Admin: 10/17/16 14:41 Dose: 2 mg Admin: 10/17/16 08:12 Dose: 2 mg Admin: 10/17/16 08:04 Dose: Rosuvastatin Calcium (Crestor) 5 mg PO DAILY [facility] Last Admin: 10/17/16 08:13 Dose: 5 mg Senna (Senna) 8.6 mg PO BID PRN PRN Reason: Constipation - Assessment Assessment (Free Text/Narrative):: POD#1 -right TKA - Plan Plan (Free Text/Narrative):: 1. 325mg ASA BID, TEDs, SCDs, frequent mobility. 2. The pt will remain in Hospital overnight for continued therapy due to longstanding hx LLE weakness also. 3. Hgb 12.0 today. 4. Possible discharge to [facility] if pt doesn't meet therapy goals. The pt's case was discussed with Dr. Dang.
[2016-10-17] MEDS: ClonazePAM 0.5 MG Tab PO SCH (21:12)
[2016-10-17] MEDS: amLODIPine 5 MG Tab PO SCH (21:12)
[2016-10-18] MEDS: metFORMIN 500 MG Tab PO SCH ×2 (06:15→16:35)
[2016-10-18] MEDS: Acetaminophen/oxyCODONE 325-5 MG Tab PO PRN ×4 (06:22→21:37)
[2016-10-18] MEDS: Aspirin 325 MG Tab.EC PO SCH ×2 (09:17→21:35)
[2016-10-18] MEDS: Cholestyramine/Aspartame Powder 4 GM Packet PO SCH (09:17)
[2016-10-18] MEDS: Nystatin Susp 100,000 Unit/ML 5 ML UD Cup PO SCH ×4 (09:18→21:33)
[2016-10-18] MEDS: rOPINIRole 1 MG Tab PO SCH ×3 (09:18→21:35)
[2016-10-18] MEDS: Carbidopa/Levodopa 25-100 MG Tab PO SCH ×3 (09:18→21:33)
[2016-10-18] MEDS: Rosuvastatin 10 MG Tab PO SCH (09:18)
[2016-10-18] MEDS: Docusate Sodium 100 MG Cap PO SCH ×2 (09:18→21:33)
[2016-10-18] MEDS: Cyclobenzaprine 10 MG Tab PO PRN ×2 (09:18→16:07)
[2016-10-18] MEDS: Pantoprazole 40 MG Tab.CR PO SCH (09:18)
[2016-10-18] MEDS: Tamsulosin 0.4 MG Cap.ER PO SCH ×2 (09:18→21:35)
--- NOTE | 2016-10-18 10:56 | PCM.SURGPN ---
- General Info Date of Service: 10/18/16 POD#: 2 Functional Status: Reports: Pain Controlled, Tolerating Diet, Ambulating, Other (The pt has progressed with therapy, although still requires assistance with mobility.) - Patient Data Vitals - Most Recent: Last Vital Signs Temp 98.1 F 10/18/16 07:51 Pulse 70 10/18/16 07:51 Resp 18 10/18/16 07:52 BP 134/100 H 10/18/16 07:51 Pulse Ox 93 L 10/18/16 07:51 Weight - Most Recent: 159 lb 14.4 oz I&O - Last 24 Hours: Intake & Output 10/17/16 10/18/16 10/18/16 22:59 06:59 14:59 Intake Total 470 300 300 Output Total 850 700 Balance -380 -400 300 Lab Results Last 24 Hrs: Laboratory Results - last 24 hr 10/17/16 10/18/16 10/18/16 Range/Units 12:09 06:04 06:56 WBC 9.49 H (4.23-9.07) K/mm3 RBC 3.74 L (4.63-6.08) M/mm3 Hgb 11.8 L (13.7-17.5) gm/L Hct 35.7 L (40.1-51.0) % MCV 95.5 H (79.0-92.2) fl MCH 31.6 (25.7-32.2) pg MCHC 33.1 (32.2-35.5) g/dl RDW Std Deviation 51.5 H (35.1-43.9) fL Plt Count 205 (163-337) K/mm3 MPV 9.6 (9.4-12.3) fl Neut % (Auto) 67.4 (34.0-67.9) % Lymph % (Auto) 20.8 L (21.8-53.1) % Pike % (Auto) 8.9 (5.3-12.2) % Eos % (Auto) 2.6 (0.8-7.0) Baso % (Auto) 0.0 L (0.1-1.2) % Neut # (Auto) 6.40 H (1.78-5.38) K/mm3 Lymph # (Auto) 1.97 (1.32-3.57) K/mm3 Pike # (Auto) 0.84 H (0.30-0.82) K/mm3 Eos # (Auto) 0.25 (0.04-0.54) K/mm3 Baso # (Auto) 0.00 L (0.01-0.08) K/mm3 Manual Slide Review Normal smear Sodium (136-145) mEq/L Potassium (3.5-5.1) mEq/L Chloride (98-107) mEq/L Carbon Dioxide (21-32) mEq/L Anion Gap (5-15) BUN (7-18) mg/dL Creatinine (0.7-1.3) mg/dL Est Cr Clr Drug Dosing mL/min Estimated GFR (MDRD) (>60) mL/min BUN/Creatinine Ratio (14-18) Glucose (80-115) mg/dL POC Glucose 131 H 131 H (80-115) mg/dL Calcium (8.5-10.1) mg/dL 10/18/16 Range/Units 06:56 WBC (4.23-9.07) K/mm3 RBC (4.63-6.08) M/mm3 Hgb (13.7-17.5) gm/L Hct (40.1-51.0) % MCV (79.0-92.2) fl MCH (25.7-32.2) pg MCHC (32.2-35.5) g/dl RDW Std Deviation (35.1-43.9) fL Plt Count (163-337) K/mm3 MPV (9.4-12.3) fl Neut % (Auto) (34.0-67.9) % Lymph % (Auto) (21.8-53.1) % Pike % (Auto) (5.3-12.2) % Eos % (Auto) (0.8-7.0) Baso % (Auto) (0.1-1.2) % Neut # (Auto) (1.78-5.38) K/mm3 Lymph # (Auto) (1.32-3.57) K/mm3 Pike # (Auto) (0.30-0.82) K/mm3 Eos # (Auto) (0.04-0.54) K/mm3 Baso # (Auto) (0.01-0.08) K/mm3 Manual Slide Review Sodium 137 (136-145) mEq/L Potassium 4.1 (3.5-5.1) mEq/L Chloride 103 (98-107) mEq/L Carbon Dioxide 26 (21-32) mEq/L Anion Gap 12.1 (5-15) BUN 19 H (7-18) mg/dL Creatinine 1.8 H (0.7-1.3) mg/dL Est Cr Clr Drug Dosing 37.74 mL/min Estimated GFR (MDRD) 38 (>60) mL/min BUN/Creatinine Ratio 10.6 L (14-18) Glucose 145 H (80-115) mg/dL POC Glucose (80-115) mg/dL Calcium 8.6 (8.5-10.1) mg/dL Med Orders - Current: Current Medications Amlodipine Besylate (Norvasc) 5 mg PO BEDTIME [facility] Last Admin: 10/17/16 21:12 Dose: 5 mg Aspirin (Ecotrin) 325 mg PO BID [facility] Last Admin: 10/18/16 09:17 Dose: 325 mg Bisacodyl (Dulcolax) 5 mg PO DAILY PRN PRN Reason: Constipation Carbidopa/Levodopa (Sinemet 25-100 Mg) 1 tab PO TID [facility] Last Admin: 10/18/16 09:18 Dose: 1 tab Cholestyramine Resin (Prevalite Packet) 4 gm PO DAILY [facility] Last Admin: 10/18/16 09:17 Dose: 4 gm Clonazepam (Klonopin) 0.5 mg PO BEDTIME [facility] Last Admin: 10/17/16 21:12 Dose: 0.5 mg Cyclobenzaprine HCl (Flexeril) 10 mg PO TID PRN PRN Reason: Spasms Last Admin: 10/18/16 09:18 Dose: 10 mg Diphenhydramine HCl (Benadryl) 25 mg IVPUSH Q4H PRN PRN Reason: Nausea Docusate Sodium (Colace) 100 mg PO BID [facility] Last Admin: 10/18/16 09:18 Dose: 100 mg Magnesium Hydroxide (Milk Of Magnesia) 30 ml PO BID PRN PRN Reason: Constipation Metformin HCl (Glucophage) 250 mg PO BIDMEALS [facility] Last Admin: 10/18/16 06:15 Dose: 250 mg Morphine Sulfate (Morphine) 2 mg IVPUSH Q2H PRN PRN Reason: Breakthrough Pain Last Admin: 10/18/16 09:20 Dose: 2 mg Naloxone HCl (Narcan) 0.1 mg IVPUSH Q5M PRN PRN Reason: Oversedation Nystatin (Mycostatin) 5 ml PO QID [facility] Last Admin: 10/18/16 09:18 Dose: 5 ml Ondansetron HCl (Zofran) 4 mg IVPUSH Q6H PRN PRN Reason: Nausea/Vomiting Oxycodone/Acetaminophen (Percocet 325-5 Mg) 1 - 2 tab PO Q4H PRN PRN Reason: Pain Last Admin: 10/18/16 06:22 Dose: 2 tab Pantoprazole Sodium (Protonix) 40 mg PO DAILY [facility] Last Admin: 10/18/16 09:18 Dose: 40 mg Ropinirole HCl (Requip) 2 mg PO TID [facility] Last Admin: 10/18/16 09:18 Dose: 2 mg Rosuvastatin Calcium (Crestor) 5 mg PO DAILY [facility] Last Admin: 10/18/16 09:18 Dose: 5 mg Senna (Senna) 8.6 mg PO BID PRN PRN Reason: Constipation Tamsulosin HCl (Flomax) 0.4 mg PO BID [facility] Last Admin: 10/18/16 09:18 Dose: 0.4 mg Discontinued Medications Bupivacaine HCl (Marcaine 0.25%) Confirm Administered Dose 30 ml .ROUTE .STK- MED ONE Stop: 10/16/16 13:26 Last Admin: 10/16/16 16:19 Dose: 30 ml Cefazolin Sodium (Ancef) Confirm Administered Dose 2 gm .ROUTE .STK-MED ONE Stop: 10/16/16 13:42 Last Admin: 10/16/16 16:09 Dose: 2 gm Cefazolin Sodium (Ancef) Confirm Administered Dose 2 gm .ROUTE .STK-MED ONE Stop: 10/16/16 13:26 Morphine Sulfate 8 mg/Epinephrine HCl 0.3 mg/Cefuroxime Sodium 750 mg/Ketorolac Tromethamine 30 mg/Sodium Chloride 27.9 ml 0 mg .XX ONETIME ONE Stop: 10/16/16 13:01 Last Admin: 10/16/16 19:10 Dose: Not Given Ephedrine Sulfate (Ephedrine Sulfate) Confirm Administered Dose 50 mg .ROUTE .STK-MED ONE Stop: 10/16/16 16:43 Fentanyl (Sublimaze) Confirm Administered Dose 100 mcg .ROUTE .STK-MED ONE Stop: 10/16/16 13:43 Fentanyl (Sublimaze) 50 mcg IVPUSH Q5M PRN PRN Reason: Pain Stop: 10/16/16 19:00 Lactated Ringer's (Ringers, Lactated) 1,000 mls @ 125 mls/hr IV ASDIRECTED [facility] Stop: 10/16/16 23:00 Last Admin: 10/16/16 12:10 Dose: 125 mls/hr Cefazolin Sodium/Dextrose 2 gm (/ Premix) 50 mls @ 100 mls/hr IV Q8H [facility] Stop: 10/17/16 14:14 Last Admin: 10/17/16 13:59 Dose: 100 mls/hr Lidocaine HCl (Xylocaine-Mpf 1%) Confirm Administered Dose 4 mls @ as directed .ROUTE .STK-MED ONE Stop: 10/16/16 13:42 Lactated Ringer's (Ringers, Lactated) Confirm Administered Dose 1,000 mls @ as directed .ROUTE .STK-MED ONE Stop: 10/16/16 15:01 Lactated Ringer's (Ringers, Lactated) Confirm Administered Dose 1,000 mls @ as directed .ROUTE .STK-MED ONE Stop: 10/16/16 16:18 Iodine (Iodine 2% Mild Tincture) Confirm Administered Dose 30 ml .ROUTE .STK- MED ONE Stop: 10/16/16 13:26 Last Admin: 10/16/16 16:05 Dose: 30 ml Lidocaine/Sodium Bicarbonate (Buffered Lidocaine 1% In Ns 8.4%) 0.25 ml .XX ONETIME PRN PRN Reason: Prior to IV Start Stop: 10/16/16 18:00 Last Admin: 10/16/16 12:10 Dose: 0.25 ml Midazolam HCl (Versed 1 Mg/Ml) Confirm Administered Dose 2 mg .ROUTE .STK-MED ONE Stop: 10/16/16 14:42 Morphine Sulfate (Duramorph Pf) Confirm Administered Dose 10 mg .ROUTE .STK-MED ONE Stop: 10/16/16 13:43 Ondansetron HCl (Zofran) Confirm Administered Dose 4 mg .ROUTE .STK-MED ONE Stop: 10/16/16 13:42 Ondansetron HCl (Zofran) 4 mg IVPUSH ONETIME PRN PRN Reason: Nausea/Vomiting Stop: 10/16/16 22:00 Propofol (Diprivan 20 Ml) Confirm Administered Dose 200 mg .ROUTE .STK-MED ONE Stop: 10/16/16 13:42 Propofol (Diprivan 20 Ml) Confirm Administered Dose 200 mg .ROUTE .STK-MED ONE Stop: 10/16/16 15:50 Propofol (Diprivan 20 Ml) Confirm Administered Dose 200 mg .ROUTE .STK-MED ONE Stop: 10/16/16 16:27 Sodium Chloride (Saline Flush) 10 ml FLUSH ASDIRECTED PRN PRN Reason: Keep Vein Open Stop: 10/16/16 18:00 Tranexamic Acid (Cyklokapron) Confirm Administered Dose 1,000 mg .ROUTE .STK- MED ONE Stop: 10/16/16 13:26 Last Admin: 10/16/16 16:23 Dose: 1,000 mg Vancomycin HCl (Vancomycin) Confirm Administered Dose 1 gm .ROUTE .STK-MED ONE Stop: 10/16/16 13:26 Vancomycin HCl (Vancomycin) Confirm Administered Dose 1 gm .ROUTE .STK-MED ONE Stop: 10/16/16 13:39 Last Admin: 10/16/16 16:18 Dose: 1 gm - Exam Wound/Incisions: Dressing Dry and Intact General: Alert, Cooperative, No Acute Distress Lungs: Normal Respiratory Effort Extremities: Other (NVS intact for RLE. Mark's negative BLE. ) - Problem List Review Problem List Initiated/Reviewed/Updated: Yes - My Orders Last 24 Hours: Active Orders 24 hr Category Date Time Status Wolf Catheter Insertion [Insert Urinary Catheter] [OM. Care 10/17/16 16:00 Ordered PC] Q24H Urinary Catheter Assessment [RC] ASDIRECTED Care 10/17/16 15:48 Active Tamsulosin [Flomax] Med 10/18/16 09:00 Active 0.4 mg PO BID Medication Orders Amlodipine Besylate (Norvasc) 5 mg PO BEDTIME [facility] Last Admin: 10/17/16 21:12 Dose: 5 mg Admin: 10/16/16 20:58 Dose: 5 mg Aspirin (Ecotrin) 325 mg PO BID [facility] Last Admin: 10/18/16 09:17 Dose: 325 mg Admin: 10/17/16 21:12 Dose: 325 mg Admin: 10/17/16 08:12 Dose: 325 mg Bisacodyl (Dulcolax) 5 mg PO DAILY PRN PRN Reason: Constipation Carbidopa/Levodopa (Sinemet 25-100 Mg) 1 tab PO TID [facility] Last Admin: 10/18/16 09:18 Dose: 1 tab Admin: 10/17/16 21:12 Dose: 1 tab Admin: 10/17/16 14:42 Dose: 1 tab Admin: 10/17/16 08:14 Dose: 1 tab Admin: 10/16/16 20:58 Dose: 1 tab Cholestyramine Resin (Prevalite Packet) 4 gm PO DAILY [facility] Last Admin: 10/18/16 09:17 Dose: 4 gm Admin: 10/17/16 09:01 Dose: 4 gm Clonazepam (Klonopin) 0.5 mg PO BEDTIME [facility] Last Admin: 10/17/16 21:12 Dose: 0.5 mg Admin: 10/16/16 20:58 Dose: 0.5 mg Cyclobenzaprine HCl (Flexeril) 10 mg PO TID PRN PRN Reason: Spasms Last Admin: 10/18/16 09:18 Dose: 10 mg Admin: 10/17/16 06:08 Dose: 10 mg Diphenhydramine HCl (Benadryl) 25 mg IVPUSH Q4H PRN PRN Reason: Nausea Docusate Sodium (Colace) 100 mg PO BID [facility] Last Admin: 10/18/16 09:18 Dose: 100 mg Admin: 10/17/16 21:12 Dose: 100 mg Admin: 10/17/16 08:10 Dose: 100 mg Admin: 10/16/16 20:58 Dose: 100 mg Magnesium Hydroxide (Milk Of Magnesia) 30 ml PO BID PRN PRN Reason: Constipation Metformin HCl (Glucophage) 250 mg PO BIDMEALS [facility] Last Admin: 10/18/16 06:15 Dose: 250 mg Admin: 10/17/16 17:29 Dose: 250 mg Admin: 10/17/16 08:13 Dose: 250 mg Morphine Sulfate (Morphine) 2 mg IVPUSH Q2H PRN PRN Reason: Breakthrough Pain Last Admin: 10/18/16 09:20 Dose: 2 mg Naloxone HCl (Narcan) 0.1 mg IVPUSH Q5M PRN PRN Reason: Oversedation Nystatin (Mycostatin) 5 ml PO QID [facility] Last Admin: 10/18/16 09:18 Dose: 5 ml Admin: 10/17/16 21:11 Dose: 5 ml Admin: 10/17/16 17:29 Dose: 5 ml Admin: 10/17/16 14:01 Dose: 5 ml Admin: 10/17/16 08:14 Dose: 5 ml Admin: 10/17/16 08:04 Dose: Ondansetron HCl (Zofran) 4 mg IVPUSH Q6H PRN PRN Reason: Nausea/Vomiting Oxycodone/Acetaminophen (Percocet 325-5 Mg) 1 - 2 tab PO Q4H PRN PRN Reason: Pain Last Admin: 10/18/16 06:22 Dose: 2 tab Admin: 10/17/16 21:13 Dose: 2 tab Admin: 10/17/16 10:34 Dose: 2 tab Admin: 10/17/16 02:30 Dose: 2 tab Pantoprazole Sodium (Protonix) 40 mg PO DAILY [facility] Last Admin: 10/18/16 09:18 Dose: 40 mg Admin: 10/17/16 08:13 Dose: 40 mg Ropinirole HCl (Requip) 2 mg PO TID [facility] Last Admin: 10/18/16 09:18 Dose: 2 mg Admin: 10/17/16 21:15 Dose: 2 mg Admin: 10/17/16 14:41 Dose: 2 mg Admin: 10/17/16 08:12 Dose: 2 mg Admin: 10/17/16 08:04 Dose: Rosuvastatin Calcium (Crestor) 5 mg PO DAILY [facility] Last Admin: 10/18/16 09:18 Dose: 5 mg Admin: 10/17/16 08:13 Dose: 5 mg Senna (Senna) 8.6 mg PO BID PRN PRN Reason: Constipation Tamsulosin HCl (Flomax) 0.4 mg PO BID [facility] Last Admin: 10/18/16 09:18 Dose: 0.4 mg - Assessment Assessment (Free Text/Narrative):: POD#2 - right TKA - Plan Plan (Free Text/Narrative):: 1. 325mg ASA BID. Frequent mobility, SCDs, TEDs. 2. Likely discharge to [place] tomorrow or possible home with HH. 3. Continue with therapy. 4. Further orders per Hospitalist service. Phone call to pt's (per pt's request) placed and discussed discharge plans. The pt's case was discussed with Dr. Dang.
--- NOTE | 2016-10-18 11:41 | PCM.CONSN ---
- General Info Date of Service: 10/18/16 Admission Dx/Problem (Free Text): S/P right TKA Subjective Update: 66 year old male no compliants post op day 1, S/P right total knee arthroplasty. The patient has a history of OA, CVA at , multiple prior surgeries, and Diabetes. The hospitalist service has been consulted for medical management. - Patient Data Vitals - Most Recent: Last Vital Signs Temp 98.1 F 10/18/16 07:51 Pulse 70 10/18/16 07:51 Resp 18 10/18/16 07:52 BP 134/100 H 10/18/16 07:51 Pulse Ox 93 L 10/18/16 07:51 Weight - Most Recent: 159 lb 14.4 oz I&O - Last 24 Hours: Intake & Output 10/17/16 10/18/16 10/18/16 22:59 06:59 14:59 Intake Total 470 300 300 Output Total 850 700 Balance -380 -400 300 Lab Results Last 24 Hours: Laboratory Results - last 24 hr 10/17/16 10/18/16 10/18/16 Range/Units 12:09 06:04 06:56 WBC 9.49 H (4.23-9.07) K/mm3 RBC 3.74 L (4.63-6.08) M/mm3 Hgb 11.8 L (13.7-17.5) gm/L Hct 35.7 L (40.1-51.0) % MCV 95.5 H (79.0-92.2) fl MCH 31.6 (25.7-32.2) pg MCHC 33.1 (32.2-35.5) g/dl RDW Std Deviation 51.5 H (35.1-43.9) fL Plt Count 205 (163-337) K/mm3 MPV 9.6 (9.4-12.3) fl Neut % (Auto) 67.4 (34.0-67.9) % Lymph % (Auto) 20.8 L (21.8-53.1) % [place] % (Auto) 8.9 (5.3-12.2) % Eos % (Auto) 2.6 (0.8-7.0) Baso % (Auto) 0.0 L (0.1-1.2) % Neut # (Auto) 6.40 H (1.78-5.38) K/mm3 Lymph # (Auto) 1.97 (1.32-3.57) K/mm3 [place] # (Auto) 0.84 H (0.30-0.82) K/mm3 Eos # (Auto) 0.25 (0.04-0.54) K/mm3 Baso # (Auto) 0.00 L (0.01-0.08) K/mm3 Manual Slide Review Normal smear Sodium (136-145) mEq/L Potassium (3.5-5.1) mEq/L Chloride (98-107) mEq/L Carbon Dioxide (21-32) mEq/L Anion Gap (5-15) BUN (7-18) mg/dL Creatinine (0.7-1.3) mg/dL Est Cr Clr Drug Dosing mL/min Estimated GFR (MDRD) (>60) mL/min BUN/Creatinine Ratio (14-18) Glucose (80-115) mg/dL POC Glucose 131 H 131 H (80-115) mg/dL Calcium (8.5-10.1) mg/dL 10/18/16 Range/Units 06:56 WBC (4.23-9.07) K/mm3 RBC (4.63-6.08) M/mm3 Hgb (13.7-17.5) gm/L Hct (40.1-51.0) % MCV (79.0-92.2) fl MCH (25.7-32.2) pg MCHC (32.2-35.5) g/dl RDW Std Deviation (35.1-43.9) fL Plt Count (163-337) K/mm3 MPV (9.4-12.3) fl Neut % (Auto) (34.0-67.9) % Lymph % (Auto) (21.8-53.1) % [place] % (Auto) (5.3-12.2) % Eos % (Auto) (0.8-7.0) Baso % (Auto) (0.1-1.2) % Neut # (Auto) (1.78-5.38) K/mm3 Lymph # (Auto) (1.32-3.57) K/mm3 [place] # (Auto) (0.30-0.82) K/mm3 Eos # (Auto) (0.04-0.54) K/mm3 Baso # (Auto) (0.01-0.08) K/mm3 Manual Slide Review Sodium 137 (136-145) mEq/L Potassium 4.1 (3.5-5.1) mEq/L Chloride 103 (98-107) mEq/L Carbon Dioxide 26 (21-32) mEq/L Anion Gap 12.1 (5-15) BUN 19 H (7-18) mg/dL Creatinine 1.8 H (0.7-1.3) mg/dL Est Cr Clr Drug Dosing 37.74 mL/min Estimated GFR (MDRD) 38 (>60) mL/min BUN/Creatinine Ratio 10.6 L (14-18) Glucose 145 H (80-115) mg/dL POC Glucose (80-115) mg/dL Calcium 8.6 (8.5-10.1) mg/dL Med Orders - Current: Current Medications Amlodipine Besylate (Norvasc) 5 mg PO BEDTIME [facility] Last Admin: 10/17/16 21:12 Dose: 5 mg Aspirin (Ecotrin) 325 mg PO BID [facility] Last Admin: 10/18/16 09:17 Dose: 325 mg Bisacodyl (Dulcolax) 5 mg PO DAILY PRN PRN Reason: Constipation Carbidopa/Levodopa (Sinemet 25-100 Mg) 1 tab PO TID [facility] Last Admin: 10/18/16 09:18 Dose: 1 tab Cholestyramine Resin (Prevalite Packet) 4 gm PO DAILY [facility] Last Admin: 10/18/16 09:17 Dose: 4 gm Clonazepam (Klonopin) 0.5 mg PO BEDTIME [facility] Last Admin: 10/17/16 21:12 Dose: 0.5 mg Cyclobenzaprine HCl (Flexeril) 10 mg PO TID PRN PRN Reason: Spasms Last Admin: 10/18/16 09:18 Dose: 10 mg Diphenhydramine HCl (Benadryl) 25 mg IVPUSH Q4H PRN PRN Reason: Nausea Docusate Sodium (Colace) 100 mg PO BID [facility] Last Admin: 10/18/16 09:18 Dose: 100 mg Magnesium Hydroxide (Milk Of Magnesia) 30 ml PO BID PRN PRN Reason: Constipation Metformin HCl (Glucophage) 250 mg PO BIDMEALS [facility] Last Admin: 10/18/16 06:15 Dose: 250 mg Morphine Sulfate (Morphine) 2 mg IVPUSH Q2H PRN PRN Reason: Breakthrough Pain Last Admin: 10/18/16 09:20 Dose: 2 mg Naloxone HCl (Narcan) 0.1 mg IVPUSH Q5M PRN PRN Reason: Oversedation Nystatin (Mycostatin) 5 ml PO QID [facility] Last Admin: 10/18/16 09:18 Dose: 5 ml Ondansetron HCl (Zofran) 4 mg IVPUSH Q6H PRN PRN Reason: Nausea/Vomiting Oxycodone/Acetaminophen (Percocet 325-5 Mg) 1 - 2 tab PO Q4H PRN PRN Reason: Pain Last Admin: 10/18/16 06:22 Dose: 2 tab Pantoprazole Sodium (Protonix) 40 mg PO DAILY [facility] Last Admin: 10/18/16 09:18 Dose: 40 mg Ropinirole HCl (Requip) 2 mg PO TID [facility] Last Admin: 10/18/16 09:18 Dose: 2 mg Rosuvastatin Calcium (Crestor) 5 mg PO DAILY [facility] Last Admin: 10/18/16 09:18 Dose: 5 mg Senna (Senna) 8.6 mg PO BID PRN PRN Reason: Constipation Tamsulosin HCl (Flomax) 0.4 mg PO BID [facility] Last Admin: 10/18/16 09:18 Dose: 0.4 mg Discontinued Medications Bupivacaine HCl (Marcaine 0.25%) Confirm Administered Dose 30 ml .ROUTE .STK- MED ONE Stop: 10/16/16 13:26 Last Admin: 10/16/16 16:19 Dose: 30 ml Cefazolin Sodium (Ancef) Confirm Administered Dose 2 gm .ROUTE .STK-MED ONE Stop: 10/16/16 13:42 Last Admin: 10/16/16 16:09 Dose: 2 gm Cefazolin Sodium (Ancef) Confirm Administered Dose 2 gm .ROUTE .STK-MED ONE Stop: 10/16/16 13:26 Morphine Sulfate 8 mg/Epinephrine HCl 0.3 mg/Cefuroxime Sodium 750 mg/Ketorolac Tromethamine 30 mg/Sodium Chloride 27.9 ml 0 mg .XX ONETIME ONE Stop: 10/16/16 13:01 Last Admin: 10/16/16 19:10 Dose: Not Given Ephedrine Sulfate (Ephedrine Sulfate) Confirm Administered Dose 50 mg .ROUTE .STK-MED ONE Stop: 10/16/16 16:43 Fentanyl (Sublimaze) Confirm Administered Dose 100 mcg .ROUTE .STK-MED ONE Stop: 10/16/16 13:43 Fentanyl (Sublimaze) 50 mcg IVPUSH Q5M PRN PRN Reason: Pain Stop: 10/16/16 19:00 Lactated Ringer's (Ringers, Lactated) 1,000 mls @ 125 mls/hr IV ASDIRECTED [facility] Stop: 10/16/16 23:00 Last Admin: 10/16/16 12:10 Dose: 125 mls/hr Cefazolin Sodium/Dextrose 2 gm (/ Premix) 50 mls @ 100 mls/hr IV Q8H [facility] Stop: 10/17/16 14:14 Last Admin: 10/17/16 13:59 Dose: 100 mls/hr Lidocaine HCl (Xylocaine-Mpf 1%) Confirm Administered Dose 4 mls @ as directed .ROUTE .STK-MED ONE Stop: 10/16/16 13:42 Lactated Ringer's (Ringers, Lactated) Confirm Administered Dose 1,000 mls @ as directed .ROUTE .STK-MED ONE Stop: 10/16/16 15:01 Lactated Ringer's (Ringers, Lactated) Confirm Administered Dose 1,000 mls @ as directed .ROUTE .STK-MED ONE Stop: 10/16/16 16:18 Iodine (Iodine 2% Mild Tincture) Confirm Administered Dose 30 ml .ROUTE .STK- MED ONE Stop: 10/16/16 13:26 Last Admin: 10/16/16 16:05 Dose: 30 ml Lidocaine/Sodium Bicarbonate (Buffered Lidocaine 1% In Ns 8.4%) 0.25 ml .XX ONETIME PRN PRN Reason: Prior to IV Start Stop: 10/16/16 18:00 Last Admin: 10/16/16 12:10 Dose: 0.25 ml Midazolam HCl (Versed 1 Mg/Ml) Confirm Administered Dose 2 mg .ROUTE .STK-MED ONE Stop: 10/16/16 14:42 Morphine Sulfate (Duramorph Pf) Confirm Administered Dose 10 mg .ROUTE .STK-MED ONE Stop: 10/16/16 13:43 Ondansetron HCl (Zofran) Confirm Administered Dose 4 mg .ROUTE .STK-MED ONE Stop: 10/16/16 13:42 Ondansetron HCl (Zofran) 4 mg IVPUSH ONETIME PRN PRN Reason: Nausea/Vomiting Stop: 10/16/16 22:00 Propofol (Diprivan 20 Ml) Confirm Administered Dose 200 mg .ROUTE .STK-MED ONE Stop: 10/16/16 13:42 Propofol (Diprivan 20 Ml) Confirm Administered Dose 200 mg .ROUTE .STK-MED ONE Stop: 10/16/16 15:50 Propofol (Diprivan 20 Ml) Confirm Administered Dose 200 mg .ROUTE .STK-MED ONE Stop: 10/16/16 16:27 Sodium Chloride (Saline Flush) 10 ml FLUSH ASDIRECTED PRN PRN Reason: Keep Vein Open Stop: 10/16/16 18:00 Tranexamic Acid (Cyklokapron) Confirm Administered Dose 1,000 mg .ROUTE .STK- MED ONE Stop: 10/16/16 13:26 Last Admin: 10/16/16 16:23 Dose: 1,000 mg Vancomycin HCl (Vancomycin) Confirm Administered Dose 1 gm .ROUTE .STK-MED ONE Stop: 10/16/16 13:26 Vancomycin HCl (Vancomycin) Confirm Administered Dose 1 gm .ROUTE .STK-MED ONE Stop: 10/16/16 13:39 Last Admin: 10/16/16 16:18 Dose: 1 gm Consult PN Assessment/Plan Procedures: Procedures ANTINUCLEAR ANTIBODIES (12/09/15) ASSAY OF FERRITIN (12/22/13) ASSAY OF FOLIC ACID RBC (12/22/13) ASSAY OF IRON (12/22/13) ASSAY OF TRANSFERRIN (12/22/13) C-REACTIVE PROTEIN (12/09/15) CHEST X-RAY 2VW FRONTAL&LATL (10/29/13) CINE/VID X-RAY THROAT/ESOPH (05/12/16) COMPLETE CBC W/AUTO DIFF WBC (12/09/15) COMPREHEN METABOLIC PANEL (04/26/15) CONTRST X-RAY UPPR GI TRACT (09/12/13) DRAIN/INJ JOINT/BURSA W/O US (09/14/15) DXA BONE DENSITY AXIAL (10/02/16) EGD BIOPSY SINGLE/MULTIPLE (06/02/13) EMERGENCY DEPT VISIT (02/20/15) ESOPH EGD DILATION <30 MM (06/02/13) FLUOROSCOPE EXAMINATION (04/26/15) GAIT TRAINING THERAPY (04/26/15) GLUCOSE BLOOD TEST (04/26/15) MANUAL THERAPY 1/> REGIONS (07/29/15) MASSAGE THERAPY (02/19/15) MEASURE BLOOD OXYGEN LEVEL (12/07/14) METABOLIC PANEL TOTAL CA (04/26/15) MOTION FLUOROSCOPY/SWALLOW (05/12/16) MR-STAPH DNA AMP PROBE (09/29/16) MRI JOINT UPR EXTREM W/O DYE (11/17/15) MRI NECK SPINE W/O DYE (08/30/15) MRI UPPER EXTREMITY W/O DYE (11/17/15) NEUROMUSCULAR REEDUCATION (07/29/15) OFFICE/OUTPATIENT VISIT EST (06/09/13) ORGANIC ACID SINGLE QUANT (12/25/13) OT EVALUATION (04/26/15) PT EVALUATION (07/29/15) RBC SED RATE AUTOMATED (12/09/15) REPAIR BICEPS TENDON (11/06/13) REPAIR ROTATOR CUFF CHRONIC (11/06/13) RHEUMATOID FACTOR TEST QUAL (12/09/15) ROUTINE VENIPUNCTURE (12/09/15) SELF CARE MNGMENT TRAINING (04/26/15) SHOULDER ARTHROSCOPY/SURGERY (11/06/13) SHOULDER ARTHROSCOPY/SURGERY (11/06/13) SHOULDER ARTHROSCOPY/SURGERY (11/06/13) SPECIAL STAINS GROUP 1 (06/02/13) THER/PROPH/DIAG INJ SC/IM (02/20/15) THERAPEUTIC ACTIVITIES (12/29/14) THERAPEUTIC EXERCISES (07/29/15) TISSUE EXAM BY PATHOLOGIST (06/02/13) ULTRASOUND THERAPY (02/19/15) URINALYSIS AUTO W/SCOPE (10/29/13) VITAMIN B-12 (12/22/13) X-RAY EXAM HIP UNI 2-3 VIEWS (02/20/15) X-RAY EXAM NECK SPINE 6/>VWS (07/20/15) X-RAY EXAM OF HIP (12/07/14) X-RAY EXAM OF HIP (08/06/14) X-RAY EXAM OF PELVIS (12/07/14) X-RAY EXAM OF SHOULDER (04/26/15) X-RAY EXAM OF SHOULDER (12/10/13) (1) Status post right knee replacement SNOMED Code(s): 666050306, 592476156, 819915305 Code(s): Z96.651 - PRESENCE OF RIGHT ARTIFICIAL KNEE JOINT Priority: High Current Visit: Yes (2) Hemiparesis affecting left side as late effect of stroke SNOMED Code(s): 835986201 Code(s): I69.354 - HEMIPLGA FOLLOWING CEREBRAL INFRC AFFECTING LEFT NONDOM SIDE Priority: Low Current Visit: No (3) CKD (chronic kidney disease) stage 3, GFR 30-59 ml/min SNOMED Code(s): 576648342 Code(s): N18.3 - CHRONIC KIDNEY DISEASE, STAGE 3 (MODERATE) Priority: High Current Visit: Yes (4) Osteophyte, right knee SNOMED Code(s): 959598111, 370715579 Code(s): M25.761 - OSTEOPHYTE, RIGHT KNEE Priority: High Current Visit: Yes (5) History of bladder cancer SNOMED Code(s): 042398677 Code(s): Z85.51 - PERSONAL HISTORY OF MALIGNANT NEOPLASM OF BLADDER Priority: Low Current Visit: No (6) GERD (gastroesophageal reflux disease) SNOMED Code(s): 392776344 Code(s): K21.9 - GASTRO-ESOPHAGEAL REFLUX DISEASE WITHOUT ESOPHAGITIS Priority: Low Current Visit: No Qualifiers: Esophagitis presence: esophagitis presence not specified Qualified Code(s) : K21.9 - Gastro-esophageal reflux disease without esophagitis
--- NOTE | 2016-10-18 12:54 | PCM.CONSN ---
- General Info Date of Service: 10/18/16 Admission Dx/Problem (Free Text): S/P right TKA Subjective Update: 66 year old male no compliants post op day 2, S/P right total knee arthroplasty. The patient has a history of OA, CVA at , multiple prior surgeries, and Diabetes. The hospitalist service has been consulted for medical management. Functional Status: Reports: Pain Controlled, Tolerating Diet, Ambulating, Incentive Spirometry. Denies: Urinating, New Symptoms Pain Score: 8 (Tolerating well and denies need for treatment ) - Review of Systems General: Reports: No Symptoms, Chills HEENT: Reports: No Symptoms Pulmonary: Reports: No Symptoms Cardiovascular: Reports: No Symptoms Gastrointestinal: Reports: No Symptoms Genitourinary: Reports: No Symptoms Musculoskeletal: Reports: No Symptoms Skin: Reports: No Symptoms Neurological: Reports: No Symptoms Psychiatric: Reports: No Symptoms - Patient Data Vitals - Most Recent: Last Vital Signs Temp 98.1 F 10/18/16 07:51 Pulse 70 10/18/16 07:51 Resp 18 10/18/16 07:52 BP 134/100 H 10/18/16 07:51 Pulse Ox 93 L 10/18/16 07:51 Weight - Most Recent: 159 lb 14.4 oz I&O - Last 24 Hours: Intake & Output 10/17/16 10/18/16 10/18/16 22:59 06:59 14:59 Intake Total 470 300 300 Output Total 850 700 Balance -380 -400 300 Lab Results Last 24 Hours: Laboratory Results - last 24 hr 10/17/16 10/18/16 10/18/16 Range/Units 17:29 06:04 06:56 WBC 9.49 H (4.23-9.07) K/mm3 RBC 3.74 L (4.63-6.08) M/mm3 Hgb 11.8 L (13.7-17.5) gm/L Hct 35.7 L (40.1-51.0) % MCV 95.5 H (79.0-92.2) fl MCH 31.6 (25.7-32.2) pg MCHC 33.1 (32.2-35.5) g/dl RDW Std Deviation 51.5 H (35.1-43.9) fL Plt Count 205 (163-337) K/mm3 MPV 9.6 (9.4-12.3) fl Neut % (Auto) 67.4 (34.0-67.9) % Lymph % (Auto) 20.8 L (21.8-53.1) % Banks % (Auto) 8.9 (5.3-12.2) % Eos % (Auto) 2.6 (0.8-7.0) Baso % (Auto) 0.0 L (0.1-1.2) % Neut # (Auto) 6.40 H (1.78-5.38) K/mm3 Lymph # (Auto) 1.97 (1.32-3.57) K/mm3 Banks # (Auto) 0.84 H (0.30-0.82) K/mm3 Eos # (Auto) 0.25 (0.04-0.54) K/mm3 Baso # (Auto) 0.00 L (0.01-0.08) K/mm3 Manual Slide Review Normal smear Sodium (136-145) mEq/L Potassium (3.5-5.1) mEq/L Chloride (98-107) mEq/L Carbon Dioxide (21-32) mEq/L Anion Gap (5-15) BUN (7-18) mg/dL Creatinine (0.7-1.3) mg/dL Est Cr Clr Drug Dosing mL/min Estimated GFR (MDRD) (>60) mL/min BUN/Creatinine Ratio (14-18) Glucose (80-115) mg/dL POC Glucose 131 H 131 H (80-115) mg/dL Calcium (8.5-10.1) mg/dL 10/18/16 Range/Units 06:56 WBC (4.23-9.07) K/mm3 RBC (4.63-6.08) M/mm3 Hgb (13.7-17.5) gm/L Hct (40.1-51.0) % MCV (79.0-92.2) fl MCH (25.7-32.2) pg MCHC (32.2-35.5) g/dl RDW Std Deviation (35.1-43.9) fL Plt Count (163-337) K/mm3 MPV (9.4-12.3) fl Neut % (Auto) (34.0-67.9) % Lymph % (Auto) (21.8-53.1) % Banks % (Auto) (5.3-12.2) % Eos % (Auto) (0.8-7.0) Baso % (Auto) (0.1-1.2) % Neut # (Auto) (1.78-5.38) K/mm3 Lymph # (Auto) (1.32-3.57) K/mm3 Banks # (Auto) (0.30-0.82) K/mm3 Eos # (Auto) (0.04-0.54) K/mm3 Baso # (Auto) (0.01-0.08) K/mm3 Manual Slide Review Sodium 137 (136-145) mEq/L Potassium 4.1 (3.5-5.1) mEq/L Chloride 103 (98-107) mEq/L Carbon Dioxide 26 (21-32) mEq/L Anion Gap 12.1 (5-15) BUN 19 H (7-18) mg/dL Creatinine 1.8 H (0.7-1.3) mg/dL Est Cr Clr Drug Dosing 37.74 mL/min Estimated GFR (MDRD) 38 (>60) mL/min BUN/Creatinine Ratio 10.6 L (14-18) Glucose 145 H (80-115) mg/dL POC Glucose (80-115) mg/dL Calcium 8.6 (8.5-10.1) mg/dL Med Orders - Current: Current Medications Amlodipine Besylate (Norvasc) 5 mg PO BEDTIME [facility] Last Admin: 10/17/16 21:12 Dose: 5 mg Aspirin (Ecotrin) 325 mg PO BID [facility] Last Admin: 10/18/16 09:17 Dose: 325 mg Bisacodyl (Dulcolax) 5 mg PO DAILY PRN PRN Reason: Constipation Carbidopa/Levodopa (Sinemet 25-100 Mg) 1 tab PO TID [facility] Last Admin: 10/18/16 09:18 Dose: 1 tab Cholestyramine Resin (Prevalite Packet) 4 gm PO DAILY [facility] Last Admin: 10/18/16 09:17 Dose: 4 gm Clonazepam (Klonopin) 0.5 mg PO BEDTIME [facility] Last Admin: 10/17/16 21:12 Dose: 0.5 mg Cyclobenzaprine HCl (Flexeril) 10 mg PO TID PRN PRN Reason: Spasms Last Admin: 10/18/16 09:18 Dose: 10 mg Diphenhydramine HCl (Benadryl) 25 mg IVPUSH Q4H PRN PRN Reason: Nausea Docusate Sodium (Colace) 100 mg PO BID [facility] Last Admin: 10/18/16 09:18 Dose: 100 mg Magnesium Hydroxide (Milk Of Magnesia) 30 ml PO BID PRN PRN Reason: Constipation Metformin HCl (Glucophage) 250 mg PO BIDMEALS [facility] Last Admin: 10/18/16 06:15 Dose: 250 mg Morphine Sulfate (Morphine) 2 mg IVPUSH Q2H PRN PRN Reason: Breakthrough Pain Last Admin: 10/18/16 09:20 Dose: 2 mg Naloxone HCl (Narcan) 0.1 mg IVPUSH Q5M PRN PRN Reason: Oversedation Nystatin (Mycostatin) 5 ml PO QID [facility] Last Admin: 10/18/16 09:18 Dose: 5 ml Ondansetron HCl (Zofran) 4 mg IVPUSH Q6H PRN PRN Reason: Nausea/Vomiting Oxycodone/Acetaminophen (Percocet 325-5 Mg) 1 - 2 tab PO Q4H PRN PRN Reason: Pain Last Admin: 10/18/16 06:22 Dose: 2 tab Pantoprazole Sodium (Protonix) 40 mg PO DAILY [facility] Last Admin: 10/18/16 09:18 Dose: 40 mg Ropinirole HCl (Requip) 2 mg PO TID [facility] Last Admin: 10/18/16 09:18 Dose: 2 mg Rosuvastatin Calcium (Crestor) 5 mg PO DAILY [facility] Last Admin: 10/18/16 09:18 Dose: 5 mg Senna (Senna) 8.6 mg PO BID PRN PRN Reason: Constipation Tamsulosin HCl (Flomax) 0.4 mg PO BID [facility] Last Admin: 10/18/16 09:18 Dose: 0.4 mg Discontinued Medications Bupivacaine HCl (Marcaine 0.25%) Confirm Administered Dose 30 ml .ROUTE .STK- MED ONE Stop: 10/16/16 13:26 Last Admin: 10/16/16 16:19 Dose: 30 ml Cefazolin Sodium (Ancef) Confirm Administered Dose 2 gm .ROUTE .STK-MED ONE Stop: 10/16/16 13:42 Last Admin: 10/16/16 16:09 Dose: 2 gm Cefazolin Sodium (Ancef) Confirm Administered Dose 2 gm .ROUTE .STK-MED ONE Stop: 10/16/16 13:26 Morphine Sulfate 8 mg/Epinephrine HCl 0.3 mg/Cefuroxime Sodium 750 mg/Ketorolac Tromethamine 30 mg/Sodium Chloride 27.9 ml 0 mg .XX ONETIME ONE Stop: 10/16/16 13:01 Last Admin: 10/16/16 19:10 Dose: Not Given Ephedrine Sulfate (Ephedrine Sulfate) Confirm Administered Dose 50 mg .ROUTE .STK-MED ONE Stop: 10/16/16 16:43 Fentanyl (Sublimaze) Confirm Administered Dose 100 mcg .ROUTE .ST-MED ONE Stop: 10/16/16 13:43 Fentanyl (Sublimaze) 50 mcg IVPUSH Q5M PRN PRN Reason: Pain Stop: 10/16/16 19:00 Lactated Ringer's (Ringers, Lactated) 1,000 mls @ 125 mls/hr IV ASDIRECTED [facility] Stop: 10/16/16 23:00 Last Admin: 10/16/16 12:10 Dose: 125 mls/hr Cefazolin Sodium/Dextrose 2 gm (/ Premix) 50 mls @ 100 mls/hr IV Q8H [facility] Stop: 10/17/16 14:14 Last Admin: 10/17/16 13:59 Dose: 100 mls/hr Lidocaine HCl (Xylocaine-Mpf 1%) Confirm Administered Dose 4 mls @ as directed .ROUTE .ST-MED ONE Stop: 10/16/16 13:42 Lactated Ringer's (Ringers, Lactated) Confirm Administered Dose 1,000 mls @ as directed .ROUTE .ST-MED ONE Stop: 10/16/16 15:01 Lactated Ringer's (Ringers, Lactated) Confirm Administered Dose 1,000 mls @ as directed .ROUTE .STK-MED ONE Stop: 10/16/16 16:18 Iodine (Iodine 2% Mild Tincture) Confirm Administered Dose 30 ml .ROUTE .STK- MED ONE Stop: 10/16/16 13:26 Last Admin: 10/16/16 16:05 Dose: 30 ml Lidocaine/Sodium Bicarbonate (Buffered Lidocaine 1% In Ns 8.4%) 0.25 ml .XX ONETIME PRN PRN Reason: Prior to IV Start Stop: 10/16/16 18:00 Last Admin: 10/16/16 12:10 Dose: 0.25 ml Midazolam HCl (Versed 1 Mg/Ml) Confirm Administered Dose 2 mg .ROUTE .STK-MED ONE Stop: 10/16/16 14:42 Morphine Sulfate (Duramorph Pf) Confirm Administered Dose 10 mg .ROUTE .STK-MED ONE Stop: 10/16/16 13:43 Ondansetron HCl (Zofran) Confirm Administered Dose 4 mg .ROUTE .STK-MED ONE Stop: 10/16/16 13:42 Ondansetron HCl (Zofran) 4 mg IVPUSH ONETIME PRN PRN Reason: Nausea/Vomiting Stop: 10/16/16 22:00 Propofol (Diprivan 20 Ml) Confirm Administered Dose 200 mg .ROUTE .STK-MED ONE Stop: 10/16/16 13:42 Propofol (Diprivan 20 Ml) Confirm Administered Dose 200 mg .ROUTE .STK-MED ONE Stop: 10/16/16 15:50 Propofol (Diprivan 20 Ml) Confirm Administered Dose 200 mg .ROUTE .STK-MED ONE Stop: 10/16/16 16:27 Sodium Chloride (Saline Flush) 10 ml FLUSH ASDIRECTED PRN PRN Reason: Keep Vein Open Stop: 10/16/16 18:00 Tranexamic Acid (Cyklokapron) Confirm Administered Dose 1,000 mg .ROUTE .STK- MED ONE Stop: 10/16/16 13:26 Last Admin: 10/16/16 16:23 Dose: 1,000 mg Vancomycin HCl (Vancomycin) Confirm Administered Dose 1 gm .ROUTE .STK-MED ONE Stop: 10/16/16 13:26 Vancomycin HCl (Vancomycin) Confirm Administered Dose 1 gm .ROUTE .STK-MED ONE Stop: 10/16/16 13:39 Last Admin: 10/16/16 16:18 Dose: 1 gm - Exam Quality Assessment: DVT Prophylaxis. No: Supplemental Oxygen General: Alert, Oriented, Cooperative HEENT: Pupils Equal, Pupils Reactive, Mucous Membr. Moist/[place] Neck: Supple, Trachea Midline, No JVD Lungs: Clear to Auscultation, Normal Respiratory Effort Cardiovascular: Regular Rate, Regular Rhythm, No Murmurs GI/Abdominal Exam: Normal Bowel Sounds, Soft, Non-Tender, No Organomegaly, No Distention, No Abnormal Bruit, No Mass (Male) Exam: Deferred Back Exam: Normal Inspection Extremities: Normal Range of Motion, Non-Tender, No Pedal Edema, Normal Capillary Refill Peripheral Pulses: 2+: Radial (L), Radial (R), Posterior Tibial (L), Posterior Tibial (R), Dorsalis Pedis (L), Dorsalis Pedis (R) Skin: Warm, Dry, Intact Wound/Incisions: Dressing Dry and Intact, No Drainage Neurological: Normal Speech, Normal Tone, Sensation Intact, Other (Absent dorsifelxion of left foot. Weak plantar flexion. ). No: Normal Gait Psy/Mental Status: Alert, Normal Affect, Normal Mood Consult PN Assessment/Plan POD#: 2 Procedures: Procedures ANTINUCLEAR ANTIBODIES (12/09/15) ASSAY OF FERRITIN (12/22/13) ASSAY OF FOLIC ACID RBC (12/22/13) ASSAY OF IRON (12/22/13) ASSAY OF TRANSFERRIN (12/22/13) C-REACTIVE PROTEIN (12/09/15) CHEST X-RAY 2VW FRONTAL&LATL (10/29/13) CINE/VID X-RAY THROAT/ESOPH (05/12/16) COMPLETE CBC W/AUTO DIFF WBC (12/09/15) COMPREHEN METABOLIC PANEL (04/26/15) CONTRST X-RAY UPPR GI TRACT (09/12/13) DRAIN/INJ JOINT/BURSA W/O US (09/14/15) DXA BONE DENSITY AXIAL (10/02/16) EGD BIOPSY SINGLE/MULTIPLE (06/02/13) EMERGENCY DEPT VISIT (02/20/15) ESOPH EGD DILATION <30 MM (06/02/13) FLUOROSCOPE EXAMINATION (04/26/15) GAIT TRAINING THERAPY (04/26/15) GLUCOSE BLOOD TEST (04/26/15) MANUAL THERAPY 1/> REGIONS (07/29/15) MASSAGE THERAPY (02/19/15) MEASURE BLOOD OXYGEN LEVEL (12/07/14) METABOLIC PANEL TOTAL CA (04/26/15) MOTION FLUOROSCOPY/SWALLOW (05/12/16) MR-STAPH DNA AMP PROBE (09/29/16) MRI JOINT UPR EXTREM W/O DYE (11/17/15) MRI NECK SPINE W/O DYE (08/30/15) MRI UPPER EXTREMITY W/O DYE (11/17/15) NEUROMUSCULAR REEDUCATION (07/29/15) OFFICE/OUTPATIENT VISIT EST (06/09/13) ORGANIC ACID SINGLE QUANT (12/25/13) OT EVALUATION (04/26/15) PT EVALUATION (07/29/15) RBC SED RATE AUTOMATED (12/09/15) REPAIR BICEPS TENDON (11/06/13) REPAIR ROTATOR CUFF CHRONIC (11/06/13) RHEUMATOID FACTOR TEST QUAL (12/09/15) ROUTINE VENIPUNCTURE (12/09/15) SELF CARE MNGMENT TRAINING (04/26/15) SHOULDER ARTHROSCOPY/SURGERY (11/06/13) SHOULDER ARTHROSCOPY/SURGERY (11/06/13) SHOULDER ARTHROSCOPY/SURGERY (11/06/13) SPECIAL STAINS GROUP 1 (06/02/13) THER/PROPH/DIAG INJ SC/IM (02/20/15) THERAPEUTIC ACTIVITIES (12/29/14) THERAPEUTIC EXERCISES (07/29/15) TISSUE EXAM BY PATHOLOGIST (06/02/13) ULTRASOUND THERAPY (02/19/15) URINALYSIS AUTO W/SCOPE (10/29/13) VITAMIN B-12 (12/22/13) X-RAY EXAM HIP UNI 2-3 VIEWS (02/20/15) X-RAY EXAM NECK SPINE 6/>VWS (07/20/15) X-RAY EXAM OF HIP (12/07/14) X-RAY EXAM OF HIP (08/06/14) X-RAY EXAM OF PELVIS (12/07/14) X-RAY EXAM OF SHOULDER (04/26/15) X-RAY EXAM OF SHOULDER (12/10/13) (1) Status post right knee replacement SNOMED Code(s): 525938590, 731482177, 314754104 Code(s): Z96.651 - PRESENCE OF RIGHT ARTIFICIAL KNEE JOINT Priority: High Current Visit: Yes (2) Hemiparesis affecting left side as late effect of stroke SNOMED Code(s): 045014668 Code(s): I69.354 - HEMIPLGA FOLLOWING CEREBRAL INFRC AFFECTING LEFT NONDOM SIDE Priority: Low Current Visit: No (3) CKD (chronic kidney disease) stage 3, GFR 30-59 ml/min SNOMED Code(s): 766082501 Code(s): N18.3 - CHRONIC KIDNEY DISEASE, STAGE 3 (MODERATE) Priority: High Current Visit: Yes (4) Osteophyte, right knee SNOMED Code(s): 644863196, 945260250 Code(s): M25.761 - OSTEOPHYTE, RIGHT KNEE Priority: High Current Visit: Yes (5) History of bladder cancer SNOMED Code(s): 372536167 Code(s): Z85.51 - PERSONAL HISTORY OF MALIGNANT NEOPLASM OF BLADDER Priority: Low Current Visit: No (6) GERD (gastroesophageal reflux disease) SNOMED Code(s): 079770188 Code(s): K21.9 - GASTRO-ESOPHAGEAL REFLUX DISEASE WITHOUT ESOPHAGITIS Priority: Low Current Visit: No Qualifiers: Esophagitis presence: esophagitis presence not specified Qualified Code(s) : K21.9 - Gastro-esophageal reflux disease without esophagitis (7) Foot drop, left SNOMED Code(s): 2887160, 69595077 Code(s): M21.372 - FOOT DROP, LEFT FOOT Priority: High Current Visit: Yes Problem List Initiated/Reviewed/Updated: Yes Plan: Impression: Right knee OA; right total knee arthroplasty - post operative day 2 Pt. has had absent dorsiflexion and decreased plantar flexion. PT/OT evaluation and is recommending SNF Placement for rehab stay. Will follow-up tomorrow. Pt. has also had urine retention. Flomax ordered. He had been straight cath'ed yesterday. Will continue to monitor with nursing to follow protocol for urinary retention. Pt. has history of bladder cancer but denies any retention or prostate issues. No other complaints. Chronic DM type 2 HLD HTN RLS CP, spastic GERD Bladder CA CKD, stage 3 Plan: Pain/DVT medical mgt per primary service Home meds Daily labs CM/PT/OT Sw/CM for discharge planning. He is a full code.
[2016-10-18] MEDS: amLODIPine 5 MG Tab PO SCH (21:33)
[2016-10-18] MEDS: ClonazePAM 0.5 MG Tab PO SCH (21:35)
--- NOTE | 2016-10-18 22:44 | PCM.OPNOTE ---
- General Post-Op/Procedure Note Date of Surgery/Procedure: 10/16/16 Operative Procedure(s): right total knee arthroplasty Pre Op Diagnosis: right knee osteoarthrosis Post-Op Diagnosis: Same Anesthesia Technique: Local, MAC, Spinal Primary Surgeon: Joselito Dang Anesthesia Provider: Darling Doshi Clipper Operator: Jacki Islas Clipper Operator: Samuel Raines EBL in mLs: 150 Complications: None Condition: Good Free Text/Narrative:: Intake & Output 10/18/16 10/18/16 10/18/16 06:59 14:59 22:59 Intake Total 300 390 750 Output Total 700 600 700 Balance -400 -210 50
--- NOTE | 2016-10-18 23:31 | OR ---
DATE OF OPERATION: 10/16/2016 SURGEON: Joselito Dang MD OPERATION PERFORMED: Right total knee arthroplasty. PREOPERATIVE DIAGNOSIS: Right knee osteoarthrosis. POSTOPERATIVE DIAGNOSIS: Right knee osteoarthrosis. ANESTHESIA: Local MAC. ANESTHESIA PROVIDER: Darling Doshi CRNA. ASSISTANTS: Jacki Islas LPN and Samuel Raines M.D. ESTIMATED BLOOD LOSS: 150 mL. COMPLICATIONS: None. CONDITION: Stable. DESCRIPTION OF PROCEDURE: The patient was identified in the preop holding area. Proper site was marked and identified by the surgeon. The patient was taken back to the operating theater where after adequate anesthesia, the patient had a nonsterile tourniquet applied to the right lower extremity, and then was sterilely prepped and draped in the usual sterile fashion. OR time-out was performed. The patient received 2 g IV Ancef. At this time, right lower extremity was exsanguinated. Tourniquet was insufflated to 250 mmHg. Standard anterior medial parapatellar approach was made, medial parapatellar arthrotomy was created. Deep fibers of the MCL were raised and anterior fat pad was resected. Attention was turned to the patella. Patella measured a 25 and it was resected to a 15 for 35 x 10 mm patella. Drill holes were then drilled for a press-fit patella and they were found to be in adequate position. At this time, attention was turned to the femur. A drill hole was placed intramedullary just anterior to the PCL insertion. The flexible intramedullary guide bib was then placed and the distal femoral cutting guide was placed. An 8 mm was dissected off the distal femur and was found to be an adequate resection. At this time, sizing guide was placed. It was found to be a size 7 femur. Epicondylar access holes were then drilled and found to be in adequate position using Whitesides line and epicondyles as reference. At this time, the 4 in 1 cutting block for size 7 was placed and anterior and posterior chamfer cuts were then completed, and found to be adequate. Box cut for a size 7 was then placed and the box cut was completed and found to be adequate. Attention was turned to the tibia. The posterior, medial, and lateral retractors were placed and the extramedullary tibial cutting guide was then placed in the old footprint of the ACL. Alignment bib was set for the second ray slope, was set roughly 0 to 3 degrees posterior slope, and 9 mm was resected off the unaffected lateral side. It was found to be an adequate resection. At this time, attention was turned posteriorly both medial and lateral meniscus as well as posterior osteophytes were then removed. The patient at this time, had a trial base plate placed and was found to be a size 6. At this time, it was stamped and drilled in proper rotation for a press-fit tibial component. Trial implants were then placed and the patient had full extension, full flexion with stable varus to valgus stress with a 9 mm trial spacer with the implants in anatomic, roughly neutral alignment. At this time, press-fit Duncan components were a size 6 tibial base plate, size 7 femur and a 35 x 10 mm patella were opened. At this time, the tibia was tried to be impacted into place, but it was noted to have sclerotic bone on the medial side, so it would not sit and it was rocking a little bit. At this time, it was decided that we would cement the tibia. At this time, cement was mixed on the back table. The cut surface of the tibia was cleaned and dried. Cement was placed on the tibia as well as the component, and the component was impacted into place. The femur was then press fit at this time, and patella was press- fit. A 9 mm PS X3 polyethylene was impacted into place. The patient's knee was brought to full extension. Excess cement was removed from the tibia. The patient had full extension and flexion. Throughout range of motion was stable. At this time, tourniquet was deflated. The patient's knee was brought to full extension. All bleeders were cauterized. 1 L of dilute Betadine solution along with 3 L of pulse lavage irrigation with Ancef was irrigated through the knee. Periarticular injection was completed and vancomycin powder was placed in the wound. A #2 barbed suture used for closure of the medial parapatellar arthrotomy, 2-0 Vicryl was used subcutaneously, and running 3-0 Monocryl was used for closure of the skin. The patient had a sterile soft dressing applied and was sent to the PACU in stable condition. ASHLYN /[id number]
[2016-10-19] MEDS: metFORMIN 500 MG Tab PO SCH (06:41)
[2016-10-19] MEDS: Acetaminophen/oxyCODONE 325-5 MG Tab PO PRN ×2 (06:42→13:40)
[2016-10-19] MEDS: Cyclobenzaprine 10 MG Tab PO PRN (06:45)
[2016-10-19] MEDS: Nystatin Susp 100,000 Unit/ML 5 ML UD Cup PO SCH ×2 (08:14→13:39)
[2016-10-19] MEDS: rOPINIRole 1 MG Tab PO SCH ×2 (08:19→14:04)
[2016-10-19] MEDS: Tamsulosin 0.4 MG Cap.ER PO SCH (08:20)
[2016-10-19] MEDS: Aspirin 325 MG Tab.EC PO SCH (08:20)
[2016-10-19] MEDS: Pantoprazole 40 MG Tab.CR PO SCH (08:20)
[2016-10-19] MEDS: Docusate Sodium 100 MG Cap PO SCH (08:21)
[2016-10-19] MEDS: Rosuvastatin 10 MG Tab PO SCH (08:21)
[2016-10-19] MEDS: Carbidopa/Levodopa 25-100 MG Tab PO SCH ×2 (08:22→14:04)
[2016-10-19] MEDS: Cholestyramine/Aspartame Powder 4 GM Packet PO SCH (08:22)
[2016-10-19 08:53] VITALS: BP 124/63
--- NOTE | 2016-10-19 11:15 | PCM.CONSN ---
- General Info Date of Service: 10/19/16 Admission Dx/Problem (Free Text): S/P Right knee arthroplasty Functional Status: Reports: Pain Controlled, Tolerating Diet, Ambulating, Urinating, Incentive Spirometry - Review of Systems General: Reports: Weakness (legs). Denies: Fever, Fatigue, Malaise, Chills, Night Sweats HEENT: Reports: No Symptoms Pulmonary: Reports: No Symptoms Cardiovascular: Reports: No Symptoms Gastrointestinal: Reports: No Symptoms Genitourinary: Reports: No Symptoms Musculoskeletal: Reports: Leg Pain (Right leg), Other (Left foot drop with some weakness ) Skin: Reports: No Symptoms Neurological: Reports: No Symptoms Psychiatric: Reports: No Symptoms Systems Review Comment:: The patient denies any new complaints. He does acknowledge his increased weakness postsurgically. - Patient Data Vitals - Most Recent: Last Vital Signs Temp 98.4 F 10/19/16 08:17 Pulse 87 10/19/16 08:17 Resp 13 10/19/16 08:17 BP 124/63 10/19/16 08:17 Pulse Ox 95 10/19/16 08:17 Weight - Most Recent: 157 lb 6.4 oz I&O - Last 24 Hours: Intake & Output 10/18/16 10/19/16 10/19/16 22:59 06:59 14:59 Intake Total 750 200 210 Output Total 700 500 Balance 50 -300 210 Lab Results Last 24 Hours: Laboratory Results - last 24 hr 10/17/16 10/18/16 10/18/16 Range/Units 17:29 16:28 21:21 WBC (4.23-9.07) K/mm3 RBC (4.63-6.08) M/mm3 Hgb (13.7-17.5) gm/L Hct (40.1-51.0) % MCV (79.0-92.2) fl MCH (25.7-32.2) pg MCHC (32.2-35.5) g/dl RDW Std Deviation (35.1-43.9) fL Plt Count (163-337) K/mm3 MPV (9.4-12.3) fl Neut % (Auto) (34.0-67.9) % Lymph % (Auto) (21.8-53.1) % [place] % (Auto) (5.3-12.2) % Eos % (Auto) (0.8-7.0) Baso % (Auto) (0.1-1.2) % Neut # (Auto) (1.78-5.38) K/mm3 Lymph # (Auto) (1.32-3.57) K/mm3 [place] # (Auto) (0.30-0.82) K/mm3 Eos # (Auto) (0.04-0.54) K/mm3 Baso # (Auto) (0.01-0.08) K/mm3 Manual Slide Review Sodium (136-145) mEq/L Potassium (3.5-5.1) mEq/L Chloride (98-107) mEq/L Carbon Dioxide (21-32) mEq/L Anion Gap (5-15) BUN (7-18) mg/dL Creatinine (0.7-1.3) mg/dL Est Cr Clr Drug Dosing mL/min Estimated GFR (MDRD) (>60) mL/min BUN/Creatinine Ratio (14-18) Glucose (80-115) mg/dL POC Glucose 131 H 150 H 121 H (80-115) mg/dL Calcium (8.5-10.1) mg/dL Magnesium (1.8-2.4) mg/dl 10/19/16 10/19/16 10/19/16 Range/Units 05:57 06:45 06:45 WBC 9.35 H (4.23-9.07) K/mm3 RBC 3.43 L (4.63-6.08) M/mm3 Hgb 11.0 L (13.7-17.5) gm/L Hct 32.8 L (40.1-51.0) % MCV 95.6 H (79.0-92.2) fl MCH 32.1 (25.7-32.2) pg MCHC 33.5 (32.2-35.5) g/dl RDW Std Deviation 51.2 H (35.1-43.9) fL Plt Count 194 (163-337) K/mm3 MPV 9.3 L (9.4-12.3) fl Neut % (Auto) 68.5 H (34.0-67.9) % Lymph % (Auto) 20.7 L (21.8-53.1) % [place] % (Auto) 8.3 (5.3-12.2) % Eos % (Auto) 2.2 (0.8-7.0) Baso % (Auto) 0.1 (0.1-1.2) % Neut # (Auto) 6.39 H (1.78-5.38) K/mm3 Lymph # (Auto) 1.94 (1.32-3.57) K/mm3 [place] # (Auto) 0.78 (0.30-0.82) K/mm3 Eos # (Auto) 0.21 (0.04-0.54) K/mm3 Baso # (Auto) 0.01 (0.01-0.08) K/mm3 Manual Slide Review Normal smear Sodium 136 (136-145) mEq/L Potassium 4.3 (3.5-5.1) mEq/L Chloride 102 (98-107) mEq/L Carbon Dioxide 23 (21-32) mEq/L Anion Gap 15.3 H (5-15) BUN 18 (7-18) mg/dL Creatinine 1.5 H (0.7-1.3) mg/dL Est Cr Clr Drug Dosing 45.29 mL/min Estimated GFR (MDRD) 47 (>60) mL/min BUN/Creatinine Ratio 12.0 L (14-18) Glucose 122 H (80-115) mg/dL POC Glucose 123 H (80-115) mg/dL Calcium 8.8 (8.5-10.1) mg/dL Magnesium 1.9 (1.8-2.4) mg/dl Med Orders - Current: Current Medications Amlodipine Besylate (Norvasc) 5 mg PO BEDTIME [facility] Last Admin: 10/18/16 21:33 Dose: 5 mg Aspirin (Ecotrin) 325 mg PO BID [facility] Last Admin: 10/19/16 08:20 Dose: 325 mg Bisacodyl (Dulcolax) 5 mg PO DAILY PRN PRN Reason: Constipation Carbidopa/Levodopa (Sinemet 25-100 Mg) 1 tab PO TID [facility] Last Admin: 10/19/16 08:22 Dose: 1 tab Cholestyramine Resin (Prevalite Packet) 4 gm PO DAILY [facility] Last Admin: 10/19/16 08:22 Dose: 4 gm Clonazepam (Klonopin) 0.5 mg PO BEDTIME [facility] Last Admin: 10/18/16 21:35 Dose: 0.5 mg Cyclobenzaprine HCl (Flexeril) 10 mg PO TID PRN PRN Reason: Spasms Last Admin: 10/19/16 06:45 Dose: 10 mg Diphenhydramine HCl (Benadryl) 25 mg IVPUSH Q4H PRN PRN Reason: Nausea Docusate Sodium (Colace) 100 mg PO BID [facility] Last Admin: 10/19/16 08:21 Dose: 100 mg Magnesium Hydroxide (Milk Of Magnesia) 30 ml PO BID PRN PRN Reason: Constipation Metformin HCl (Glucophage) 250 mg PO BIDMEALS [facility] Last Admin: 10/19/16 06:41 Dose: 250 mg Morphine Sulfate (Morphine) 2 mg IVPUSH Q2H PRN PRN Reason: Breakthrough Pain Last Admin: 10/18/16 09:20 Dose: 2 mg Naloxone HCl (Narcan) 0.1 mg IVPUSH Q5M PRN PRN Reason: Oversedation Nystatin (Mycostatin) 5 ml PO QID [facility] Last Admin: 10/19/16 08:14 Dose: 5 ml Ondansetron HCl (Zofran) 4 mg IVPUSH Q6H PRN PRN Reason: Nausea/Vomiting Oxycodone/Acetaminophen (Percocet 325-5 Mg) 1 - 2 tab PO Q4H PRN PRN Reason: Pain Last Admin: 10/19/16 06:42 Dose: 2 tab Pantoprazole Sodium (Protonix) 40 mg PO DAILY [facility] Last Admin: 10/19/16 08:20 Dose: 40 mg Ropinirole HCl (Requip) 2 mg PO TID [facility] Last Admin: 10/19/16 08:19 Dose: 2 mg Rosuvastatin Calcium (Crestor) 5 mg PO DAILY [facility] Last Admin: 10/19/16 08:21 Dose: 5 mg Senna (Senna) 8.6 mg PO BID PRN PRN Reason: Constipation Tamsulosin HCl (Flomax) 0.4 mg PO BID [facility] Last Admin: 10/19/16 08:20 Dose: 0.4 mg Discontinued Medications Bupivacaine HCl (Marcaine 0.25%) Confirm Administered Dose 30 ml .ROUTE .STK- MED ONE Stop: 10/16/16 13:26 Last Admin: 10/16/16 16:19 Dose: 30 ml Cefazolin Sodium (Ancef) Confirm Administered Dose 2 gm .ROUTE .STK-MED ONE Stop: 10/16/16 13:42 Last Admin: 10/16/16 16:09 Dose: 2 gm Cefazolin Sodium (Ancef) Confirm Administered Dose 2 gm .ROUTE .STK-MED ONE Stop: 10/16/16 13:26 Morphine Sulfate 8 mg/Epinephrine HCl 0.3 mg/Cefuroxime Sodium 750 mg/Ketorolac Tromethamine 30 mg/Sodium Chloride 27.9 ml 0 mg .XX ONETIME ONE Stop: 10/16/16 13:01 Last Admin: 10/16/16 19:10 Dose: Not Given Ephedrine Sulfate (Ephedrine Sulfate) Confirm Administered Dose 50 mg .ROUTE .STK-MED ONE Stop: 10/16/16 16:43 Fentanyl (Sublimaze) Confirm Administered Dose 100 mcg .ROUTE .STK-MED ONE Stop: 10/16/16 13:43 Fentanyl (Sublimaze) 50 mcg IVPUSH Q5M PRN PRN Reason: Pain Stop: 10/16/16 19:00 Lactated Ringer's (Ringers, Lactated) 1,000 mls @ 125 mls/hr IV ASDIRECTED JASON Stop: 10/16/16 23:00 Last Admin: 10/16/16 12:10 Dose: 125 mls/hr Cefazolin Sodium/Dextrose 2 gm (/ Premix) 50 mls @ 100 mls/hr IV Q8H [facility] Stop: 10/17/16 14:14 Last Admin: 10/17/16 13:59 Dose: 100 mls/hr Lidocaine HCl (Xylocaine-Mpf 1%) Confirm Administered Dose 4 mls @ as directed .ROUTE .STK-MED ONE Stop: 10/16/16 13:42 Lactated Ringer's (Ringers, Lactated) Confirm Administered Dose 1,000 mls @ as directed .ROUTE .STK-MED ONE Stop: 10/16/16 15:01 Lactated Ringer's (Ringers, Lactated) Confirm Administered Dose 1,000 mls @ as directed .ROUTE .STK-MED ONE Stop: 10/16/16 16:18 Iodine (Iodine 2% Mild Tincture) Confirm Administered Dose 30 ml .ROUTE .STK- MED ONE Stop: 10/16/16 13:26 Last Admin: 10/16/16 16:05 Dose: 30 ml Lidocaine/Sodium Bicarbonate (Buffered Lidocaine 1% In Ns 8.4%) 0.25 ml .XX ONETIME PRN PRN Reason: Prior to IV Start Stop: 10/16/16 18:00 Last Admin: 10/16/16 12:10 Dose: 0.25 ml Midazolam HCl (Versed 1 Mg/Ml) Confirm Administered Dose 2 mg .ROUTE .STK-MED ONE Stop: 10/16/16 14:42 Morphine Sulfate (Duramorph Pf) Confirm Administered Dose 10 mg .ROUTE .STK-MED ONE Stop: 10/16/16 13:43 Ondansetron HCl (Zofran) Confirm Administered Dose 4 mg .ROUTE .STK-MED ONE Stop: 10/16/16 13:42 Ondansetron HCl (Zofran) 4 mg IVPUSH ONETIME PRN PRN Reason: Nausea/Vomiting Stop: 10/16/16 22:00 Propofol (Diprivan 20 Ml) Confirm Administered Dose 200 mg .ROUTE .STK-MED ONE Stop: 10/16/16 13:42 Propofol (Diprivan 20 Ml) Confirm Administered Dose 200 mg .ROUTE .STK-MED ONE Stop: 10/16/16 15:50 Propofol (Diprivan 20 Ml) Confirm Administered Dose 200 mg .ROUTE .STK-MED ONE Stop: 10/16/16 16:27 Sodium Chloride (Saline Flush) 10 ml FLUSH ASDIRECTED PRN PRN Reason: Keep Vein Open Stop: 10/16/16 18:00 Tranexamic Acid (Cyklokapron) Confirm Administered Dose 1,000 mg .ROUTE .STK- MED ONE Stop: 10/16/16 13:26 Last Admin: 10/16/16 16:23 Dose: 1,000 mg Vancomycin HCl (Vancomycin) Confirm Administered Dose 1 gm .ROUTE .STK-MED ONE Stop: 10/16/16 13:26 Vancomycin HCl (Vancomycin) Confirm Administered Dose 1 gm .ROUTE .STK-MED ONE Stop: 10/16/16 13:39 Last Admin: 10/16/16 16:18 Dose: 1 gm - Exam Quality Assessment: DVT Prophylaxis, Skin Breakdown (left heal has beginnings of ulcer confirmed by PT/OT - will relay to nursing staff) General: Alert, Oriented, Cooperative HEENT: Pupils Equal, Pupils Reactive, Mucous Membr. Moist/[place] Neck: Supple, Trachea Midline, No JVD Lungs: Clear to Auscultation, Normal Respiratory Effort Cardiovascular: Regular Rate, Regular Rhythm, No Murmurs GI/Abdominal Exam: Normal Bowel Sounds, Soft, Non-Tender, No Organomegaly, No Distention, No Abnormal Bruit, No Mass (Male) Exam: Deferred Back Exam: Normal Inspection Extremities: Normal Inspection, Normal Range of Motion, Non-Tender, No Pedal Edema, Normal Capillary Refill Peripheral Pulses: 2+: Radial (L), Radial (R), Posterior Tibial (L), Posterior Tibial (R), Dorsalis Pedis (L), Dorsalis Pedis (R) Skin: Warm, Dry, Intact Wound/Incisions: Dressing Dry and Intact, No Drainage Neurological: Normal Speech, Sensation Intact, Other (Left leg weakness. Absent left dorsifelxion. Weak left plantarflexion. Unable to elevate right leg. ). No : Normal Gait Psy/Mental Status: Alert, Normal Affect, Normal Mood Consult PN Assessment/Plan POD#: 3 Procedures: Procedures ANTINUCLEAR ANTIBODIES (12/09/15) ASSAY OF FERRITIN (12/22/13) ASSAY OF FOLIC ACID RBC (12/22/13) ASSAY OF IRON (12/22/13) ASSAY OF TRANSFERRIN (12/22/13) C-REACTIVE PROTEIN (12/09/15) CHEST X-RAY 2VW FRONTAL&LATL (10/29/13) CINE/VID X-RAY THROAT/ESOPH (05/12/16) COMPLETE CBC W/AUTO DIFF WBC (12/09/15) COMPREHEN METABOLIC PANEL (04/26/15) CONTRST X-RAY UPPR GI TRACT (09/12/13) DRAIN/INJ JOINT/BURSA W/O US (09/14/15) DXA BONE DENSITY AXIAL (10/02/16) EGD BIOPSY SINGLE/MULTIPLE (06/02/13) EMERGENCY DEPT VISIT (02/20/15) ESOPH EGD DILATION <30 MM (06/02/13) FLUOROSCOPE EXAMINATION (04/26/15) GAIT TRAINING THERAPY (04/26/15) GLUCOSE BLOOD TEST (04/26/15) MANUAL THERAPY 1/> REGIONS (07/29/15) MASSAGE THERAPY (02/19/15) MEASURE BLOOD OXYGEN LEVEL (12/07/14) METABOLIC PANEL TOTAL CA (04/26/15) MOTION FLUOROSCOPY/SWALLOW (05/12/16) MR-STAPH DNA AMP PROBE (09/29/16) MRI JOINT UPR EXTREM W/O DYE (11/17/15) MRI NECK SPINE W/O DYE (08/30/15) MRI UPPER EXTREMITY W/O DYE (11/17/15) NEUROMUSCULAR REEDUCATION (07/29/15) OFFICE/OUTPATIENT VISIT EST (06/09/13) ORGANIC ACID SINGLE QUANT (12/25/13) OT EVALUATION (04/26/15) PT EVALUATION (07/29/15) RBC SED RATE AUTOMATED (12/09/15) REPAIR BICEPS TENDON (11/06/13) REPAIR ROTATOR CUFF CHRONIC (11/06/13) RHEUMATOID FACTOR TEST QUAL (12/09/15) ROUTINE VENIPUNCTURE (12/09/15) SELF CARE MNGMENT TRAINING (04/26/15) SHOULDER ARTHROSCOPY/SURGERY (11/06/13) SHOULDER ARTHROSCOPY/SURGERY (11/06/13) SHOULDER ARTHROSCOPY/SURGERY (11/06/13) SPECIAL STAINS GROUP 1 (06/02/13) THER/PROPH/DIAG INJ SC/IM (02/20/15) THERAPEUTIC ACTIVITIES (12/29/14) THERAPEUTIC EXERCISES (07/29/15) TISSUE EXAM BY PATHOLOGIST (06/02/13) ULTRASOUND THERAPY (02/19/15) URINALYSIS AUTO W/SCOPE (10/29/13) VITAMIN B-12 (12/22/13) X-RAY EXAM HIP UNI 2-3 VIEWS (02/20/15) X-RAY EXAM NECK SPINE 6/>VWS (07/20/15) X-RAY EXAM OF HIP (12/07/14) X-RAY EXAM OF HIP (08/06/14) X-RAY EXAM OF PELVIS (12/07/14) X-RAY EXAM OF SHOULDER (04/26/15) X-RAY EXAM OF SHOULDER (12/10/13) (1) Status post right knee replacement SNOMED Code(s): 168279756, 181003217, 832724535 Code(s): Z96.651 - PRESENCE OF RIGHT ARTIFICIAL KNEE JOINT Priority: High Current Visit: Yes (2) Hemiparesis affecting left side as late effect of stroke SNOMED Code(s): 812334246 Code(s): I69.354 - HEMIPLGA FOLLOWING CEREBRAL INFRC AFFECTING LEFT NONDOM SIDE Priority: Low Current Visit: No (3) CKD (chronic kidney disease) stage 3, GFR 30-59 ml/min SNOMED Code(s): 126679634 Code(s): N18.3 - CHRONIC KIDNEY DISEASE, STAGE 3 (MODERATE) Priority: High Current Visit: Yes (4) Osteophyte, right knee SNOMED Code(s): 135253631, 504735490 Code(s): M25.761 - OSTEOPHYTE, RIGHT KNEE Priority: High Current Visit: Yes (5) History of bladder cancer SNOMED Code(s): 584062169 Code(s): Z85.51 - PERSONAL HISTORY OF MALIGNANT NEOPLASM OF BLADDER Priority: Low Current Visit: No (6) GERD (gastroesophageal reflux disease) SNOMED Code(s): 432265604 Code(s): K21.9 - GASTRO-ESOPHAGEAL REFLUX DISEASE WITHOUT ESOPHAGITIS Priority: Low Current Visit: No Qualifiers: Esophagitis presence: esophagitis presence not specified Qualified Code(s) : K21.9 - Gastro-esophageal reflux disease without esophagitis (7) Foot drop, left SNOMED Code(s): 9478202, 92211554 Code(s): M21.372 - FOOT DROP, LEFT FOOT Priority: High Current Visit: Yes Problem List Initiated/Reviewed/Updated: Yes Plan: Impression: Right knee OA; right total knee arthroplasty - post operative day 3 Pt. has had absent dorsiflexion and weak plantar flexion. PT/OT evaluation and is recommending SNF Placement for rehab stay. Will discharge today to [facility] SNF. Pt. has also had urine retention. Flomax given and patient voided a small amount. He had been straight cath'ed yesterday. He reports having issues with his bladder postsurgically in the past and has denied insertion of a Wolf catheter. Pt. has history of bladder cancer but denies any retention or prostate issues as baseline. No other complaints. 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 She reported patient and will schedule their own appointment. He was offered scheduling services here and declined. PT/OT reports the beginning signs of a left heel pressure ulcer. This will be related to the [facility] staff for proper treatment. He should also receive physical therapy while in the [facility]. Chronic DM type 2 HLD HTN RLS CP, spastic GERD Bladder CA CKD, stage 3 Plan: Discharge to [facility] today for rehab stay Pain/DVT medical mgt per primary service Home meds Daily labs CM/PT/OT Sw/CM for discharge planning. He is a full code. Thank you for allowing us to assist in medical management of this patient.
--- NOTE | 2016-10-27 08:10 | PCM.SURGPN ---
- General Info Date of Service: 10/19/16 POD#: 3 Functional Status: Reports: Pain Controlled, Tolerating Diet, Urinating, Other ( The pt has progressed with therapies, however, is not able to d/c to home at this time due to need for continued therapy.) - Patient Data Vitals - Most Recent: Last Vital Signs Temp 98.4 F 10/19/16 08:17 Pulse 87 10/19/16 08:17 Resp 13 10/19/16 08:17 BP 124/63 10/19/16 08:17 Pulse Ox 95 10/19/16 08:17 Weight - Most Recent: 157 lb 6.4 oz Med Orders - Current: Current Medications Discontinued Medications Amlodipine Besylate (Norvasc) 5 mg PO BEDTIME [facility] Last Admin: 10/18/16 21:33 Dose: 5 mg Aspirin (Ecotrin) 325 mg PO BID [facility] Last Admin: 10/19/16 08:20 Dose: 325 mg Bisacodyl (Dulcolax) 5 mg PO DAILY PRN PRN Reason: Constipation Bupivacaine HCl (Marcaine 0.25%) Confirm Administered Dose 30 ml .ROUTE .STK- MED ONE Stop: 10/16/16 13:26 Last Admin: 10/16/16 16:19 Dose: 30 ml Carbidopa/Levodopa (Sinemet 25-100 Mg) 1 tab PO TID [facility] Last Admin: 10/19/16 14:04 Dose: 1 tab Cefazolin Sodium (Ancef) Confirm Administered Dose 2 gm .ROUTE .STK-MED ONE Stop: 10/16/16 13:42 Last Admin: 10/16/16 16:09 Dose: 2 gm Cefazolin Sodium (Ancef) Confirm Administered Dose 2 gm .ROUTE .STK-MED ONE Stop: 10/16/16 13:26 Cholestyramine Resin (Prevalite Packet) 4 gm PO DAILY [facility] Last Admin: 10/19/16 08:22 Dose: 4 gm Clonazepam (Klonopin) 0.5 mg PO BEDTIME [facility] Last Admin: 10/18/16 21:35 Dose: 0.5 mg Morphine Sulfate 8 mg/Epinephrine HCl 0.3 mg/Cefuroxime Sodium 750 mg/Ketorolac Tromethamine 30 mg/Sodium Chloride 27.9 ml 0 mg .XX ONETIME ONE Stop: 10/16/16 13:01 Last Admin: 10/16/16 19:10 Dose: Not Given Cyclobenzaprine HCl (Flexeril) 10 mg PO TID PRN PRN Reason: Spasms Last Admin: 10/19/16 06:45 Dose: 10 mg Diphenhydramine HCl (Benadryl) 25 mg IVPUSH Q4H PRN PRN Reason: Nausea Docusate Sodium (Colace) 100 mg PO BID [facility] Last Admin: 10/19/16 08:21 Dose: 100 mg Ephedrine Sulfate (Ephedrine Sulfate) Confirm Administered Dose 50 mg .ROUTE .STK-MED ONE Stop: 10/16/16 16:43 Fentanyl (Sublimaze) Confirm Administered Dose 100 mcg .ROUTE .STK-MED ONE Stop: 10/16/16 13:43 Fentanyl (Sublimaze) 50 mcg IVPUSH Q5M PRN PRN Reason: Pain Stop: 10/16/16 19:00 Lactated Ringer's (Ringers, Lactated) 1,000 mls @ 125 mls/hr IV ASDIRECTED [facility] Stop: 10/16/16 23:00 Last Admin: 10/16/16 12:10 Dose: 125 mls/hr Cefazolin Sodium/Dextrose 2 gm (/ Premix) 50 mls @ 100 mls/hr IV Q8H [facility] Stop: 10/17/16 14:14 Last Admin: 10/17/16 13:59 Dose: 100 mls/hr Lidocaine HCl (Xylocaine-Mpf 1%) Confirm Administered Dose 4 mls @ as directed .ROUTE .STK-MED ONE Stop: 10/16/16 13:42 Lactated Ringer's (Ringers, Lactated) Confirm Administered Dose 1,000 mls @ as directed .ROUTE .STK-MED ONE Stop: 10/16/16 15:01 Lactated Ringer's (Ringers, Lactated) Confirm Administered Dose 1,000 mls @ as directed .ROUTE .STK-MED ONE Stop: 10/16/16 16:18 Iodine (Iodine 2% Mild Tincture) Confirm Administered Dose 30 ml .ROUTE .STK- MED ONE Stop: 10/16/16 13:26 Last Admin: 10/16/16 16:05 Dose: 30 ml Lidocaine/Sodium Bicarbonate (Buffered Lidocaine 1% In Ns 8.4%) 0.25 ml .XX ONETIME PRN PRN Reason: Prior to IV Start Stop: 10/16/16 18:00 Last Admin: 10/16/16 12:10 Dose: 0.25 ml Magnesium Hydroxide (Milk Of Magnesia) 30 ml PO BID PRN PRN Reason: Constipation Metformin HCl (Glucophage) 250 mg PO BIDMEALS [facility] Last Admin: 10/19/16 06:41 Dose: 250 mg Midazolam HCl (Versed 1 Mg/Ml) Confirm Administered Dose 2 mg .ROUTE .STK-MED ONE Stop: 10/16/16 14:42 Morphine Sulfate (Morphine) 2 mg IVPUSH Q2H PRN PRN Reason: Breakthrough Pain Last Admin: 10/18/16 09:20 Dose: 2 mg Morphine Sulfate (Duramorph Pf) Confirm Administered Dose 10 mg .ROUTE .STK-MED ONE Stop: 10/16/16 13:43 Naloxone HCl (Narcan) 0.1 mg IVPUSH Q5M PRN PRN Reason: Oversedation Nystatin (Mycostatin) 5 ml PO QID [facility] Last Admin: 10/19/16 13:39 Dose: 5 ml Ondansetron HCl (Zofran) 4 mg IVPUSH Q6H PRN PRN Reason: Nausea/Vomiting Ondansetron HCl (Zofran) Confirm Administered Dose 4 mg .ROUTE .STK-MED ONE Stop: 10/16/16 13:42 Ondansetron HCl (Zofran) 4 mg IVPUSH ONETIME PRN PRN Reason: Nausea/Vomiting Stop: 10/16/16 22:00 Oxycodone/Acetaminophen (Percocet 325-5 Mg) 1 - 2 tab PO Q4H PRN PRN Reason: Pain Last Admin: 10/19/16 13:40 Dose: 2 tab Pantoprazole Sodium (Protonix) 40 mg PO DAILY [facility] Last Admin: 10/19/16 08:20 Dose: 40 mg Propofol (Diprivan 20 Ml) Confirm Administered Dose 200 mg .ROUTE .STK-MED ONE Stop: 10/16/16 13:42 Propofol (Diprivan 20 Ml) Confirm Administered Dose 200 mg .ROUTE .STK-MED ONE Stop: 10/16/16 15:50 Propofol (Diprivan 20 Ml) Confirm Administered Dose 200 mg .ROUTE .STK-MED ONE Stop: 10/16/16 16:27 Ropinirole HCl (Requip) 2 mg PO TID [facility] Last Admin: 10/19/16 14:04 Dose: 2 mg Rosuvastatin Calcium (Crestor) 5 mg PO DAILY [facility] Last Admin: 10/19/16 08:21 Dose: 5 mg Senna (Senna) 8.6 mg PO BID PRN PRN Reason: Constipation Sodium Chloride (Saline Flush) 10 ml FLUSH ASDIRECTED PRN PRN Reason: Keep Vein Open Stop: 10/16/16 18:00 Tamsulosin HCl (Flomax) 0.4 mg PO BID [facility] Last Admin: 10/19/16 08:20 Dose: 0.4 mg Tranexamic Acid (Cyklokapron) Confirm Administered Dose 1,000 mg .ROUTE .STK- MED ONE Stop: 10/16/16 13:26 Last Admin: 10/16/16 16:23 Dose: 1,000 mg Vancomycin HCl (Vancomycin) Confirm Administered Dose 1 gm .ROUTE .STK-MED ONE Stop: 10/16/16 13:26 Vancomycin HCl (Vancomycin) Confirm Administered Dose 1 gm .ROUTE .STK-MED ONE Stop: 10/16/16 13:39 Last Admin: 10/16/16 16:18 Dose: 1 gm - Exam Wound/Incisions: Dressing Dry and Intact General: Alert, Cooperative, No Acute Distress Lungs: Normal Respiratory Effort Extremities: Other (Near independent SLR RLE. Mark's negative BLE. Mark's negative BLE.) - Problem List Review Problem List Initiated/Reviewed/Updated: Yes - Assessment Assessment (Free Text/Narrative):: POD#3 - s/p right TKA - Plan Plan (Free Text/Narrative):: 1. Discharge to home [facility] today for continued therapy. 2. 325mg ASA BID. 3. Percocet for pain management. 4. Follow-up at outpatient Clinic next week. The pt's case was discussed with Dr. Dang.
--- NOTE | 2016-10-27 08:18 | PCM.DCSUM1 ---
Discharge Summary - Hospital Course Brief History: Pernell is a 66 yo male who underwent right TKA with Dr. Dang on . The procedure was completed under spinal anesthesia with MAC. The pt tolerated the procedure well and was admitted to the Medical-Surgical Unit. Medical management was provided by the Hospitalist service. The pt's Hospital course was uneventful. The pt's Hgb on POD#1 was 11.8. On POD#1, 325mg BID was initiated for VTE prophylaxis. SCDs and TEDs were also ordered. A Mepilex dressing was placed at the incision site at the time of surgery and remained clean and dry. The pt participated in P.T. and O.T. His therapy was hindered by hx cerebral palsy and longstanding left-sided weakness. The pt was allowed to WBAT. He required assistance with mobility. On POD#3, the pt was deemed appropriate to discharge to the longterm for continued rehabilitation. - Discharge Data Discharge Date: 10/19/16 Discharge Disposition: DC/Tfer to SNF 03 Condition: Good - Patient Summary/Data Operative Procedure(s) Performed: right total knee arthroplasty Consults: Consultations 10/16/16 07:48 Consult to Physician [CONS] Routine OT Evaluation and Treatment [CONS] Routine 10/16/16 07:53 PT Evaluation and Treatment [CONS] Routine - Patient Instructions Diet: Usual Diet as Tolerated Activity: Apply Ice, As Tolerated, Elevate Extremity, Full Weight Bearing Driving: Do Not Drive Showering/Bathing: May Shower Wound/Incision Care: Keep Operative Site/Wound Site Clean and Dry, Do NOT Change Dressing Notify Provider of: Fever, Increased Pain, Swelling and Redness, Drainage, Nausea and/or Vomiting Other/Special Instructions: Please get up and moving around every hour while awake. This helps to prevent blood clots. Have help with mobility as needed and use the walker or crutches. Please take a 325mg aspirin TWICE daily. This helps to prevent blood clots. The medication is being used for blood clot prevention and not for pain management, so please do not miss a dose of the medication. Wear the AASHISH hose during the day and you may remove these at night. Schedule for physical therapy. Complete the exercises that were taught in the Hospital until you are able to attend P.T. Elevate the limb to decrease swelling. Use the ice machine often. Use the pain medication as needed. The medication may cause drowsiness and/or constipation. You could use a stool softener like docusate sodium or Colace 100mg twice daily and/or a laxative like Miralax daily. Contact your primary care provider for other instructions if you are constipated. Monitor your blood sugars closely. Use the incentive spirometer often. Keep the dressing at the surgical site in place until follow- up at the Clinic. Please call the Clinic with questions or concerns [phone]. - Discharge Plan Prescriptions/Med Rec: Acetaminophen/oxyCODONE [Percocet 325-5 MG] 1 - 2 tab PO Q4H PRN #60 tablet PRN Reason: Pain Aspirin [Ecotrin] 325 mg PO BID #84 tab.ec Cyclobenzaprine [Flexeril] 10 mg PO TID PRN #40 tablet PRN Reason: muscle spasms Docusate Sodium [Colace] 100 mg PO BID #60 cap Magnesium Hydroxide [Milk of Magnesia] 30 ml PO BID PRN #30 cup PRN Reason: Constipation Tamsulosin [Flomax] 0.4 mg PO BID #60 cap.er Home Medications: Home Meds Cholestyramine/Sucrose [Cholestyramine Powder] 4 gm PO DAILY 05/30/13 [History] Carbidopa/Levodopa [Carbidopa-Levodopa 25-100 Tab] 1 tab PO TID 12/07/14 [ History] ClonazePAM [KlonoPIN] 0.5 mg PO BEDTIME 10/13/16 [History] Nystatin 5 ml PO QID PRN 10/13/16 [History] Pantoprazole Sodium [Protonix] 40 mg PO DAILY 10/13/16 [History] Rosuvastatin Calcium 5 mg PO DAILY 10/13/16 [History] amLODIPine [Norvasc] 5 mg PO BEDTIME 10/13/16 [History] rOPINIRole HCl [Requip XL] 6 mg PO BEDTIME 10/13/16 [History] metFORMIN HCl [Metformin HCl ER] 500 mg PO DAILY 10/16/16 [History] Acetaminophen/oxyCODONE [Percocet 325-5 MG] 1 - 2 tab PO Q4H PRN #60 tablet [Rx] Aspirin [Ecotrin] 325 mg PO BID #84 tab.ec 10/19/16 [Rx] Cyclobenzaprine [Flexeril] 10 mg PO TID PRN #40 tablet 10/19/16 [Rx] Docusate Sodium [Colace] 100 mg PO BID #60 cap 10/19/16 [Rx] Magnesium Hydroxide [Milk of Magnesia] 30 ml PO BID PRN #30 cup 10/19/16 [Rx] Tamsulosin [Flomax] 0.4 mg PO BID #60 cap.er 10/19/16 [Rx] Patient Handouts: Total Knee Replacement, Care After, [id number], Total Knee Replacement, [id number], Chronic Kidney Disease, [id number], Knee Rehabilitation Guidelines Following Surgery, Acute Urinary Retention, Male, Easy -to-Read Referrals: Argentina Santos MD [Consulting Physician] - (recommend f/u for difficulty voiding,patient requests to make his own appointment) Jennifer Hi PA-C [Physician Tour Conductor] - 10/24/16 10:30 am (Please check in at 10:15am.) - Patient Data Vitals - Most Recent: Last Vital Signs Temp 98.4 F 10/19/16 08:17 Pulse 87 10/19/16 08:17 Resp 13 10/19/16 08:17 BP 124/63 10/19/16 08:17 Pulse Ox 95 10/19/16 08:17 Weight - Most Recent: 157 lb 6.4 oz Med Orders - Current: Current Medications Discontinued Medications Amlodipine Besylate (Norvasc) 5 mg PO BEDTIME [facility] Last Admin: 10/18/16 21:33 Dose: 5 mg Aspirin (Ecotrin) 325 mg PO BID [facility] Last Admin: 10/19/16 08:20 Dose: 325 mg Bisacodyl (Dulcolax) 5 mg PO DAILY PRN PRN Reason: Constipation Bupivacaine HCl (Marcaine 0.25%) Confirm Administered Dose 30 ml .ROUTE .STK- MED ONE Stop: 10/16/16 13:26 Last Admin: 10/16/16 16:19 Dose: 30 ml Carbidopa/Levodopa (Sinemet 25-100 Mg) 1 tab PO TID [facility] Last Admin: 10/19/16 14:04 Dose: 1 tab Cefazolin Sodium (Ancef) Confirm Administered Dose 2 gm .ROUTE .STK-MED ONE Stop: 10/16/16 13:42 Last Admin: 10/16/16 16:09 Dose: 2 gm Cefazolin Sodium (Ancef) Confirm Administered Dose 2 gm .ROUTE .STK-MED ONE Stop: 10/16/16 13:26 Cholestyramine Resin (Prevalite Packet) 4 gm PO DAILY [facility] Last Admin: 10/19/16 08:22 Dose: 4 gm Clonazepam (Klonopin) 0.5 mg PO BEDTIME [facility] Last Admin: 10/18/16 21:35 Dose: 0.5 mg Morphine Sulfate 8 mg/Epinephrine HCl 0.3 mg/Cefuroxime Sodium 750 mg/Ketorolac Tromethamine 30 mg/Sodium Chloride 27.9 ml 0 mg .XX ONETIME ONE Stop: 10/16/16 13:01 Last Admin: 10/16/16 19:10 Dose: Not Given Cyclobenzaprine HCl (Flexeril) 10 mg PO TID PRN PRN Reason: Spasms Last Admin: 10/19/16 06:45 Dose: 10 mg Diphenhydramine HCl (Benadryl) 25 mg IVPUSH Q4H PRN PRN Reason: Nausea Docusate Sodium (Colace) 100 mg PO BID [facility] Last Admin: 10/19/16 08:21 Dose: 100 mg Ephedrine Sulfate (Ephedrine Sulfate) Confirm Administered Dose 50 mg .ROUTE .STK-MED ONE Stop: 10/16/16 16:43 Fentanyl (Sublimaze) Confirm Administered Dose 100 mcg .ROUTE .STK-MED ONE Stop: 10/16/16 13:43 Fentanyl (Sublimaze) 50 mcg IVPUSH Q5M PRN PRN Reason: Pain Stop: 10/16/16 19:00 Lactated Ringer's (Ringers, Lactated) 1,000 mls @ 125 mls/hr IV ASDIRECTED [facility] Stop: 10/16/16 23:00 Last Admin: 10/16/16 12:10 Dose: 125 mls/hr Cefazolin Sodium/Dextrose 2 gm (/ Premix) 50 mls @ 100 mls/hr IV Q8H [facility] Stop: 10/17/16 14:14 Last Admin: 10/17/16 13:59 Dose: 100 mls/hr Lidocaine HCl (Xylocaine-Mpf 1%) Confirm Administered Dose 4 mls @ as directed .ROUTE .STK-MED ONE Stop: 10/16/16 13:42 Lactated Ringer's (Ringers, Lactated) Confirm Administered Dose 1,000 mls @ as directed .ROUTE .STK-MED ONE Stop: 10/16/16 15:01 Lactated Ringer's (Ringers, Lactated) Confirm Administered Dose 1,000 mls @ as directed .ROUTE .STK-MED ONE Stop: 10/16/16 16:18 Iodine (Iodine 2% Mild Tincture) Confirm Administered Dose 30 ml .ROUTE .STK- MED ONE Stop: 10/16/16 13:26 Last Admin: 10/16/16 16:05 Dose: 30 ml Lidocaine/Sodium Bicarbonate (Buffered Lidocaine 1% In Ns 8.4%) 0.25 ml .XX ONETIME PRN PRN Reason: Prior to IV Start Stop: 10/16/16 18:00 Last Admin: 10/16/16 12:10 Dose: 0.25 ml Magnesium Hydroxide (Milk Of Magnesia) 30 ml PO BID PRN PRN Reason: Constipation [facility] Last Admin: 10/19/16 06:41 Dose: 250 mg Midazolam HCl (Versed 1 Mg/Ml) Confirm Administered Dose 2 mg .ROUTE .STK-MED ONE Stop: 10/16/16 14:42 Morphine Sulfate (Morphine) 2 mg IVPUSH Q2H PRN PRN Reason: Breakthrough Pain Last Admin: 10/18/16 09:20 Dose: 2 mg Morphine Sulfate (Duramorph Pf) Confirm Administered Dose 10 mg .ROUTE .STK-MED ONE Stop: 10/16/16 13:43 Naloxone HCl (Narcan) 0.1 mg IVPUSH Q5M PRN PRN Reason: Oversedation Nystatin (Mycostatin) 5 ml PO QID [facility] Last Admin: 10/19/16 13:39 Dose: 5 ml Ondansetron HCl (Zofran) 4 mg IVPUSH Q6H PRN PRN Reason: Nausea/Vomiting Ondansetron HCl (Zofran) Confirm Administered Dose 4 mg .ROUTE .STK-MED ONE Stop: 10/16/16 13:42 Ondansetron HCl (Zofran) 4 mg IVPUSH ONETIME PRN PRN Reason: Nausea/Vomiting Stop: 10/16/16 22:00 Oxycodone/Acetaminophen (Percocet 325-5 Mg) 1 - 2 tab PO Q4H PRN PRN Reason: Pain Last Admin: 10/19/16 13:40 Dose: 2 tab Pantoprazole Sodium (Protonix) 40 mg PO DAILY [facility] Last Admin: 10/19/16 08:20 Dose: 40 mg Propofol (Diprivan 20 Ml) Confirm Administered Dose 200 mg .ROUTE .STK-MED ONE Stop: 10/16/16 13:42 Propofol (Diprivan 20 Ml) Confirm Administered Dose 200 mg .ROUTE .STK-MED ONE Stop: 10/16/16 15:50 Propofol (Diprivan 20 Ml) Confirm Administered Dose 200 mg .ROUTE .STK-MED ONE Stop: 10/16/16 16:27 Ropinirole HCl (Requip) 2 mg PO TID [facility] Last Admin: 10/19/16 14:04 Dose: 2 mg Rosuvastatin Calcium (Crestor) 5 mg PO DAILY [facility] Last Admin: 10/19/16 08:21 Dose: 5 mg Senna (Senna) 8.6 mg PO BID PRN PRN Reason: Constipation Sodium Chloride (Saline Flush) 10 ml FLUSH ASDIRECTED PRN PRN Reason: Keep Vein Open Stop: 10/16/16 18:00 Tamsulosin HCl (Flomax) 0.4 mg PO BID [facility] Last Admin: 10/19/16 08:20 Dose: 0.4 mg Tranexamic Acid (Cyklokapron) Confirm Administered Dose 1,000 mg .ROUTE .STK- MED ONE Stop: 10/16/16 13:26 Last Admin: 10/16/16 16:23 Dose: 1,000 mg Vancomycin HCl (Vancomycin) Confirm Administered Dose 1 gm .ROUTE .STK-MED ONE Stop: 10/16/16 13:26 Vancomycin HCl (Vancomycin) Confirm Administered Dose 1 gm .ROUTE .STK-MED ONE Stop: 10/16/16 13:39 Last Admin: 10/16/16 16:18 Dose: 1 gm *Q Meaningful Use (DIS) - VTE *Q VTE Criteria *Q: - Stroke *Q Stroke Criteria *Q: - AMI *Q AMI Criteria *Q:
== END 2016-10-19 14:15 | DRG 470 ==
LOC: JD.MS 11:40
PROVIDERS: ADMIT Orthopaedic Surgery; ATTEND Orthopaedic Surgery
PROC: 0SRC0J9 Replacement of Right Knee Joint with Synthetic Substitute, Cemented, Open Approach (ICD-10-PCS; principal; 2016-10-16)
DX: M17.11 Unilateral primary osteoarthritis, right knee (principal); G80.1 Spastic diplegic cerebral palsy; R53.1 Weakness; E11.9 Type 2 diabetes mellitus without complications; Z79.4 Long term (current) use of insulin; I10 Essential (primary) hypertension; E78.00 Pure hypercholesterolemia, unspecified; E55.9 Vitamin D deficiency, unspecified; G25.81 Restless legs syndrome; C67.9 Malignant neoplasm of bladder, unspecified; K21.9 Gastro-esophageal reflux disease without esophagitis; Z88.8 Allergy status to other drugs, medicaments and biological substances; Z79.899 Other long term (current) drug therapy; Z96.642 Presence of left artificial hip joint; Z96.611 Presence of right artificial shoulder joint; Z87.891 Personal history of nicotine dependence
CPT/HCPCS: 01402; 36415; 51701; 51798; 80048; 80053; 82962; 83735; 85025; 85027; 94762; 97110-GP; 97116-GP; 97162-GP; 97167-GO; 97535-GO; A9270-GY; C1713; C1776; J0171; J0690; J0697; J1885; J2250; J2270; J2405; J2704; J3010; J3370; J3490; J7120

== ENCOUNTER 2019-09-01 06:44 | Observation (INO) | payer MEDICARE, BC ==
--- NOTE | 2019-09-01 07:04 | EDM.PDOC ---
ED HPI GENERAL MEDICAL PROBLEM - General Chief Complaint: Gastrointestinal Problem Stated Complaint: DYSPHAGIA (HAS GERD) Time Seen by Provider: 09/01/19 07:04 Source of Information: Reports: Patient History Limitations: Reports: No Limitations - History of Present Illness INITIAL COMMENTS - FREE TEXT/NARRATIVE: 69-year-old male presents to the ED with foreign body sensation in his lower esophagus. Patient was seen in the ED on Sunday by with suspect food bolus stuck in his distal esophagus i.e. piece of hotdog or bun. felt food get stuck about 1800hrs. Came to the hospital at around 2230hrs. After period time it appeared that liquids were going by and he elected not to pursue EGD at that time. He was went home and subsequently has been taking fluids but states fluids even because spasm of his distal esophagus. He tried eat yesterday but could not get solid food down. He has been taking liquids sparsely. This morning about 0400 hrs. he took a pill( requip 6mg) which he uses for restless leg syndrome and felt it get stuck in his food pipe as well. Subsequently he is just bringing up saliva. He was suspicious that there was blood being regurgitated on Sunday but it may have been catch up with his heart done. Lab at this morning is clear. Pain is present constantly in the lower esophagus and worsened by swallowing. Patient has a history of peptic stricture and Dr. Carley Samano surgeon that was here 2 years ago used to dilate him every 6 months. Since he left he has not had dilatation performed. He is also currently not taking antireflux medication has a strong history of GERD. He did sleep for about 2 hours last night. Onset: Sudden Onset Date: 08/30/19 Onset Time: 18:00 ([place] part of a hot dog or bonding or both get stuck in his distal esophagus on Sunday. Subsequently felt that some fluids were passed by the obstruction and has been living on fluids since.) Duration: Day(s):, Getting Worse (PSA pain and symptoms of obstruction got worse this morning after taking a pill about 0400 hrs. this morning) Location: Reports: Chest (Pressure and pain in his distal esophagus behind his right anterior chest.) Quality: Reports: Ache, Pressure Severity: Moderate (With swallowing.) Improves with: Reports: None Worsens with: Reports: Eating (And to take any food or fluids makes him regurgitate more and increases the spasm in the lower esophagus.) Context: Reports: Other (Patient has known peptic stricture and previously was dilated every 6 months. Has not had any esophageal video dilatation for 2 years.). Denies: Activity, Exercise, Lifting, Sick Contact, Trauma Associated Symptoms: Reports: Chest Pain, Loss of Appetite, Malaise, Nausea/Vomiting (, Regurgitation of saliva which is clear.). Denies: Confusion, Cough, cough w sputum, Diaphoresis, Fever/Chills, Headaches, Rash, Seizure, Shortness of Breath, Syncope Treatments THERAPEUTIC CONSULTANT: Reports: Other (see below) (None.) Epigastric Pain Score (Numeric/FACES): 7 - Related Data Allergies Allergy/AdvReac Type Severity Reaction Status Date / Time meloxicam [From Mobic] Allergy Edema Verified 09/01/19 16:30 Home Meds: Home Meds ClonazePAM [KlonoPIN] 0.5 mg PO BEDTIME 10/13/16 [History] Rosuvastatin Calcium 5 mg PO DAILY 10/13/16 [History] amLODIPine [Norvasc] 5 mg PO BEDTIME 10/13/16 [History] Cyclobenzaprine [Flexeril] 10 mg PO TID PRN #40 tablet 10/19/16 [Rx] Tamsulosin [Flomax] 0.4 mg PO BID #60 cap.er 10/19/16 [Rx] Empagliflozin [Jardiance] 10 mg PO DAILY 09/01/19 [History] Famotidine 20 mg PO ASDIRECTED 09/01/19 [History] lisinopriL [Lisinopril] 5 mg PO DAILY 09/01/19 [History] rOPINIRole HCl [Ropinirole ER] 8 mg PO DAILY 09/01/19 [History] rOPINIRole [Requip] 3 mg PO BEDTIME 09/01/19 [History] Past Medical History Other HEENT History: hx candidal esophogitis, has glasses, dentures, dysphagia Cardiovascular History: Reports: High Cholesterol, Hypertension, Other (See Below) Other Cardiovascular History: bradycardia Respiratory History: Reports: None Gastrointestinal History: Reports: GERD (Has not been taking antireflux medication for 6 months.), Other (See Below) (Patient has a known peptic stricture and was being dilated every [address] Carley Samano surgeon who left [place] area over 2 years ago. Not had it done since that time.) Other Gastrointestinal History: hepatic hemangioma, dysphagia Genitourinary History: Reports: Renal Calculus Other Genitourinary History: hx renal insufficiency, Renal cyst R, malignant neoplasm of bladder, hematuria INDIRECT SALES EXEC History: Reports: None Musculoskeletal History: Reports: Osteoarthritis, RA Other Musculoskeletal History: degenerative joint disease, several foot surgeries, carpal tunnel and R thumb surgery, elbow surgery, R unilateral rotator cuff surgery, neck surgery C5-6-7, lapidus procedure, metatarsal osteomy with screw fixation to foot, capsulorrhaphy to 1st metatarsophalangeal joint, revision failed fusion of lapidus bunionectomy at the 1st metatarsal cuniform joint, L3 L4 hemilaminotomy, facetectomy, and decompression in the cauda equina for lateral recess and central spinal stenosis Neurological History: Reports: Cerebral Palsy, CVA, Migraines Other Neuro History: porencephalic cyst, 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 - Past Surgical History Head Surgeries/Procedures: Reports: None HEENT Surgical History: Reports: Cataract Surgery Other HEENT Surgeries/Procedures: full mouth/teeth extractions Cardiovascular Surgical History: Reports: None Respiratory Surgical History: Reports: None GI Surgical History: Reports: Appendectomy, Cholecystectomy, Colonoscopy, EGD, Hernia Repair/Other, Ozzy Fundoplication Other GI Surgeries/Procedures: lysis of adhesions, lap ozzy fundiplication Male Surgical History: Reports: None Endocrine Surgical History: Reports: None Neurological Surgical History: Reports: Other (See Below) Other Neurological Surgeries/Procedures: C5,6,7 SURGERY, L3L4 SURGERY Musculoskeletal Surgical History: Reports: Arthroscopic Procedure, Hip Replacement, Shoulder Surgery, Other (See Below) Other Musculoskeletal Surgeries/Procedures:: Left hip replaced in 2011, revision in 2014, neck surgery, foot surgery. Right shoulder revision 3-21-16. Oncologic Surgical History: Reports: None Dermatological Surgical History: Reports: Skin Biopsy Social & Family History - Family History Family Medical History: Unobtainable - Tobacco Use Smoking Status *Q: Former Smoker Used Tobacco, but Quit: Yes Month/Year Tobacco Last Used: 1998 - Caffeine Use Caffeine Use: Reports: None Other Caffeine Use: 1/day - Recreational Drug Use Recreational Drug Use: No - Living Situation & Occupation Living situation: Reports: Occupation: Disabled ED ROS GENERAL - Review of Systems Review Of Systems: See Below Constitutional: Reports: Malaise, Fatigue (Has not slept much for the last 2 days.), Decreased Appetite. Denies: Fever, Chills HEENT: Reports: No Symptoms Respiratory: Denies: Shortness of Breath, Wheezing, Pleuritic Chest Pain, Cough, Sputum, Hemoptysis Cardiovascular: Reports: Chest Pain (Really having lower retrosternal chest pressure discomfort aggravated by swallowing.). Denies: Blood Pressure Problem, Claudication, Dyspnea on Exertion, Edema, Lightheadedness, Orthopnea, Palpitations Endocrine: Reports: Fatigue GI/Abdominal: Reports: Abdominal Pain (Feels some pressure in the epigastrium.), Decreased Appetite ( Radiation into the back.), Difficulty Swallowing (Severe odynophagia with swallowing. Feels a pill that he took about 0400 hrs. this morning get stuck in his distal esophagus. Previous to that he had feeling of hotdog being stuck in his distal esophagus 2 days ago.), Other (Guarded rotation of saliva this morning.) : Reports: Frequency, Other (. X3.) Musculoskeletal: Reports: Other (Bilateral foot pain from deformities at . Multiple surgeries to both feet. Complicated by restless leg syndrome.) Skin: Reports: No Symptoms Neurological: Reports: Difficulty Walking, Weakness, Other (Born with cerebral palsy. Sided weakness) Psychiatric: Reports: No Symptoms Hematologic/Lymphatic: Reports: No Symptoms ED EXAM, GI/ABD - Physical Exam Exam: See Below Exam Limited By: No Limitations General Appearance: Alert, Anxious, Moderate Distress, Other (Temperature is 36.8. Heart rate is 75 and sinus respiratory 16 with O2 sats of 96% on room air. BP currently is 137 over 70) Eyes: Bilateral: Normal Appearance Throat/Mouth: Normal Inspection, Normal Lips, Normal Oropharynx Head: Atraumatic, Normocephalic Neck: Normal Inspection, Limited Range of Motion (Rapid is on lateral rotation.). No: Full Range of Motion, Carotid Bruit, Lymphadenopathy (L), Lymphadenopathy (R), Thyromegaly Respiratory/Chest: No Respiratory Distress, Lungs Clear, Normal Breath Sounds, No Accessory Muscle Use Cardiovascular: Regular Rate, Rhythm, No Edema, No Gallop, No Murmur, No Rub. No: Normal Peripheral Pulses GI/Abdominal Exam: Soft ( throughout the upper abdomen.), Non-Tender, No Organomegaly, No Abnormal Bruit, No Mass, Pelvis Stable, Abnormal Bowel Sounds (Bowel sounds are hyperactive) (Male) Exam: No Hernia Back Exam: Normal Inspection, Decreased Range of Motion. No: Full Range of Motion, CVA Tenderness (L), CVA Tenderness (R) Extremities: Other (Appears to have advanced arthritis of the hands and wrist. Has some ulnar drift bilaterally. Evidence of previous surgery on both feet looks like tendon releases) Neurological: Alert, Oriented, CN II-XII Intact, Normal Cognition. No: Normal Gait Psychiatric: Anxious Skin Exam: Warm, Dry, Intact, Normal Color, No Rash EKG INTERPRETATION EKG Date: 09/01/19 Time: 07:21 Rhythm: NSR Rate (Beats/Min): 71 (Occasional PACs.) West: LAD-Left West Deviation (65 degrees) P-Wave: Present QRS: Other (Left anterior fascicular block pattern creased voltage limb leads. Early R wave transition in V2 with poor R wave progression. Consider right ventricular pressure versus septal hypertrophy pattern.) ST-T: Normal QT: Normal EKG Interpretation Comments: Abnormal ECG Course - Vital Signs Last Recorded V/S: Last Vital Signs Temp 36.2 C 09/01/19 14:00 Pulse 63 09/01/19 14:00 Resp 13 09/01/19 14:00 BP 117/66 09/01/19 14:00 Pulse Ox 96 09/01/19 14:00 - Orders/Labs/Meds Orders: Active Orders 24 hr Category Date Time Status Schedule Procedure [COMM] Urgent Oth 09/01/19 10:56 Ordered Medication Orders Heparin Sodium (Porcine) (Heparin Sodium) 5,000 units SUBCUT Q8H JASON Lactated Ringer's (Ringers, Lactated) 1,000 mls @ 75 mls/hr IV ASDIRECTED JASON Fluconazole/Sodium Chloride (200 mg/ Premix) 100 mls @ 100 mls/hr IV Q24H [facility] Piperacillin Sod/Tazobactam (Sod 4.5 gm/ Sodium Chloride) 100 mls @ 25 mls/hr IV Q8H [facility] Ondansetron HCl (Zofran Odt) 4 mg PO Q4H PRN PRN Reason: nausea, able to take PO Pantoprazole Sodium (Protonix Iv) 40 mg IVPUSH DAILY [facility] Last Admin: 09/01/19 15:00 Dose: 40 mg Documented by: ZACK Labs: Laboratory Tests 09/01/19 09/01/19 09/01/19 Range/Units 07:20 07:20 07:20 WBC 19.71 H (4.23-9.07) K/mm3 RBC 4.87 (4.63-6.08) M/mm3 Hgb 15.7 (13.7-17.5) gm/dl Hct 45.8 (40.1-51.0) % MCV 94.0 H D (79.0-92.2) fl MCH 32.2 (25.7-32.2) pg MCHC 34.3 (32.2-35.5) g/dl RDW Std Deviation 54.0 H (35.1-43.9) fL Plt Count 251 (163-337) K/mm3 MPV 8.8 L (9.4-12.3) fl Neut % (Auto) 83.6 H (34.0-67.9) % Lymph % (Auto) 9.6 L (21.8-53.1) % [place] % (Auto) 6.4 (5.3-12.2) % Eos % (Auto) 0.3 L (0.8-7.0) Baso % (Auto) 0.1 (0.1-1.2) % Neut # (Auto) 16.48 H (1.78-5.38) K/mm3 Lymph # (Auto) 1.89 (1.32-3.57) K/mm3 [place] # (Auto) 1.26 H (0.30-0.82) K/mm3 Eos # (Auto) 0.06 (0.04-0.54) K/mm3 Baso # (Auto) 0.02 (0.01-0.08) K/mm3 Manual Slide Review Abnormal smear D-Dimer, Quantitative 0.86 H (0.19-0.50) mg/L Sodium 141 (136-145) mEq/L Potassium 4.3 (3.5-5.1) mEq/L Chloride 107 (98-107) mEq/L Carbon Dioxide 23 (21-32) mEq/L Anion Gap 15.3 H (5-15) BUN 35 H (7-18) mg/dL Creatinine 1.8 H (0.7-1.3) mg/dL Est Cr Clr Drug Dosing 36.21 mL/min Estimated GFR (MDRD) 38 (>60) mL/min BUN/Creatinine Ratio 19.4 H (14-18) Glucose 159 H (80-115) mg/dL Calcium 9.1 (8.5-10.1) mg/dL Magnesium (1.8-2.4) mg/dl Total Bilirubin 0.6 (0.2-1.0) mg/dL AST 10 L (15-37) U/L ALT 25 (16-63) U/L Alkaline Phosphatase 139 H (46-116) U/L CK-MB (CK-2) (0-3.6) ng/ml Troponin I 0.316 H* (0.00-0.056) ng/mL C-Reactive Protein (<1.0) mg/dL NT-Pro-B Natriuret Pep (0-125) pg/mL Total Protein 7.4 (6.4-8.2) g/dl Albumin 4.0 (3.4-5.0) g/dl Globulin 3.4 gm/dL Albumin/Globulin Ratio 1.2 (1-2) COVID-19 (MANPREET) (NEGATIVE) 09/01/19 09/01/19 09/01/19 Range/Units 07:20 07:20 07:50 WBC (4.23-9.07) K/mm3 RBC (4.63-6.08) M/mm3 Hgb (13.7-17.5) gm/dl Hct (40.1-51.0) % MCV (79.0-92.2) fl MCH (25.7-32.2) pg MCHC (32.2-35.5) g/dl RDW Std Deviation (35.1-43.9) fL Plt Count (163-337) K/mm3 MPV (9.4-12.3) fl Neut % (Auto) (34.0-67.9) % Lymph % (Auto) (21.8-53.1) % [place] % (Auto) (5.3-12.2) % Eos % (Auto) (0.8-7.0) Baso % (Auto) (0.1-1.2) % Neut # (Auto) (1.78-5.38) K/mm3 Lymph # (Auto) (1.32-3.57) K/mm3 [place] # (Auto) (0.30-0.82) K/mm3 Eos # (Auto) (0.04-0.54) K/mm3 Baso # (Auto) (0.01-0.08) K/mm3 Manual Slide Review D-Dimer, Quantitative (0.19-0.50) mg/L Sodium (136-145) mEq/L Potassium (3.5-5.1) mEq/L Chloride (98-107) mEq/L Carbon Dioxide (21-32) mEq/L Anion Gap (5-15) BUN (7-18) mg/dL Creatinine (0.7-1.3) mg/dL Est Cr Clr Drug Dosing mL/min Estimated GFR (MDRD) (>60) mL/min BUN/Creatinine Ratio (14-18) Glucose (80-115) mg/dL Calcium (8.5-10.1) mg/dL Magnesium 2.3 (1.8-2.4) mg/dl Total Bilirubin (0.2-1.0) mg/dL AST (15-37) U/L ALT (16-63) U/L Alkaline Phosphatase (46-116) U/L CK-MB (CK-2) 3.8 H (0-3.6) ng/ml Troponin I (0.00-0.056) ng/mL C-Reactive Protein 0.2 (<1.0) mg/dL NT-Pro-B Natriuret Pep 235 H (0-125) pg/mL Total Protein (6.4-8.2) g/dl Albumin (3.4-5.0) g/dl Globulin gm/dL Albumin/Globulin Ratio (1-2) COVID-19 (MANPREET) Negative (NEGATIVE) Meds: Medications Generic Name Dose Route Start Last Admin Trade Name Delgado PRN Reason Stop Dose Admin Heparin Sodium (Porcine) 5,000 units 09/01/19 16:00 Heparin Sodium SUBCUT Q8H JASON Lactated Ringer's 1,000 mls @ 75 mls/hr 09/01/19 15:37 Ringers, Lactated IV ASDIRECTED JASON Fluconazole/Sodium Chloride 100 mls @ 100 mls/hr 09/01/19 17:00 200 mg/ Premix IV Q24H JASON Piperacillin Sod/Tazobactam 100 mls @ 25 mls/hr 09/02/19 00:00 Sod 4.5 gm/ Sodium Chloride IV Q8H JASON Ondansetron HCl 4 mg 09/01/19 15:37 Zofran Odt PO Q4H PRN nausea, able to take PO Pantoprazole Sodium 40 mg 09/01/19 13:30 09/01/19 15:00 Protonix Iv IVPUSH 40 mg DAILY JASON Administration Discontinued Medications Generic Name Dose Route Start Last Admin Trade Name Delgado PRN Reason Stop Dose Admin Dexamethasone Confirm 09/01/19 12:23 Dexamethasone Administered 09/01/19 12:24 Dose 4 mg .ROUTE .STK-MED ONE Dexamethasone Confirm 09/01/19 12:23 Dexamethasone Administered 09/01/19 12:24 Dose 4 mg .ROUTE .STK-MED ONE Ephedrine Sulfate Confirm 09/01/19 12:01 Ephedrine 25 Mg/5 Ml Syringe Administered 09/01/19 12:02 Dose 25 mg IV .STK-MED ONE Ephedrine Sulfate 5 mg 09/01/19 12:04 Ephedrine Sulfate IVPUSH 09/01/19 18:00 ASDIRECTED PRN Hypotension Fentanyl Confirm 09/01/19 11:30 Sublimaze Administered 09/01/19 11:31 Dose 100 mcg .ROUTE .STK-MED ONE Fentanyl 50 mcg 09/01/19 12:04 Sublimaze IVPUSH 09/01/19 18:00 Q5M PRN Pain Hydromorphone HCl 0.5 mg 09/01/19 07:11 09/01/19 07:44 Dilaudid IVPUSH 09/01/19 07:12 0.5 mg ONETIME ONE Administration Hydromorphone HCl 0.5 mg 09/01/19 12:05 Dilaudid IVPUSH 09/01/19 18:00 ONETIME PRN Pain Hydromorphone HCl Confirm 09/01/19 12:40 Dilaudid Administered 09/01/19 12:41 Dose 1 mg .ROUTE .STK-MED ONE Dextrose/Lactated Ringer's 1,000 mls @ 250 mls/hr 09/01/19 07:15 09/01/19 07:46 Dextrose 5%-Lactated Ringers IV 250 mls/hr ASDIRECTED JASON Administration Lidocaine HCl Confirm 09/01/19 11:29 Xylocaine-Mpf 1% Administered 09/01/19 11:30 Dose 6 mls @ as directed .ROUTE .STK-MED ONE Lactated Ringer's Confirm 09/01/19 11:29 Ringers, Lactated Administered 09/01/19 11:30 Dose 1,000 mls @ as directed .ROUTE .STK-MED ONE Phenylephrine HCl 1 mg/ Sodium 10.1 mls @ 3,636 mls/hr 09/01/19 12:15 Chloride IV 09/01/19 18:00 TITRATE JASON Protocol Lactated Ringer's Confirm 09/01/19 12:11 Ringers, Lactated Administered 09/01/19 12:12 Dose 1,000 mls @ as directed .ROUTE .STK-MED ONE Piperacillin Sod/Tazobactam 100 mls @ 200 mls/hr 09/01/19 16:00 Sod 4.5 gm/ Sodium Chloride IV 09/01/19 16:29 ONETIME ONE Metoclopramide HCl 7.5 mg 09/01/19 07:11 09/01/19 07:41 Reglan IVPUSH 09/01/19 07:12 7.5 mg ONETIME ONE Administration Midazolam HCl Confirm 09/01/19 11:30 Versed 1 Mg/Ml Administered 09/01/19 11:31 Dose 2 mg .ROUTE .STK-MED ONE Ondansetron HCl 4 mg 09/01/19 09:39 09/01/19 09:44 Zofran IVPUSH 09/01/19 09:40 4 mg ONETIME ONE Administration Ondansetron HCl Confirm 09/01/19 11:29 Zofran Administered 09/01/19 11:30 Dose 4 mg .ROUTE .STK-MED ONE Propofol Confirm 09/01/19 11:29 Diprivan 20 Ml Administered 09/01/19 11:30 Dose 200 mg .ROUTE .STK-MED ONE Rocuronium [place] Confirm 09/01/19 11:29 Zemuron Administered 09/01/19 11:30 Dose 0 mg .ROUTE .STK-MED ONE - Radiology Interpretation Free Text/Narrative:: 69-year-old male presents to the ED with foreign body sensation in his distal esophagus off and on since Sunday, August 29 when he felt that the hotdog he was eating got stuck in his distal esophagus. He was seen through the ED on that day but over a period of time felt that fluids were going by and he was discharged home. At that time he has continued to feel some discomfort with even swallowing's fluids. Attempt to eat some supper last night also failed as it made the pain much worse. He states he was regurgitating a lot of fluids the saliva since last evening. He tried to take a Requip 6 mg tablet this morning at 0400 hrs. for restless leg syndrome and felt that this got stuck in his distal esophagus as well. Since that time he has been unable to swallow even his own saliva. Patient has a history of gastroesophageal reflux disease chronically. Apparently has been off his antireflux medication for the last 6 months or more. He has had previous dilatation of his distal esophagus due to new peptic stricture formation over period of 2 years he had a done every [address] Carley Samano left the community he has not had it done which was close to 2 years ago. It is felt at this time that medications intravenously are unlikely to relieve the obstruction especially if he has a firm history of peptic stricture. Routine labs will be obtained for preoperative assessment as well as ECG and a coronavirus testing. Chest x-ray will be done as well. IV will be D5 Ringer's lactate at 250 mils per hour. Given Dilaudid 0.5 mg IV for pain relief and Reglan 7.5 mg IV for nausea relief. With on-call surgeon Dr. Zamora and he will see the patient in the ED. Tentatively he will be taken to surgery this morning for emergency EGD to relieve distal esophageal obstruction. - Re-Assessments/Exams Free Text/Narrative Re-Assessment/Exam: 09/01/19 08:00 Labs reveal a markedly elevated white blood cell count at 19.71. Auto differential shows 83.6% neutrophils. Hemoglobin is 15.7 with hematocrit of 45.8. MCV is mildly elevated at 94.0. Platelet count is 251,000. Slide shows slight and no side ptosis. Platelets are normal and adequate. White blood cells showed neutrophilia and lymphopenia. Chest x-ray reveals prominent scoliosis of the thoracic aorta AV to the left. This appears to displace the trachea to the right side. Tortuous thoracic thoracic aorta and prominent aortic knob noted. His lungs appear clear. Silhouette is normal in size. 09/01/19 08:15 Chemistry reveals a sodium of 141 potassium of 4.3. Chloride 107 with a bicarb of 23. Anion gap is 15.3. BUN is 35 with a creatinine of 1.8. GFR is estimated to be 38 i.e. stage III chronic kidney disease. BUN/creatinine ratio is 19.4 glucose is elevated at 159. Calcium is 9.1. Liver function is normal. Other than alk phosphatase being mildly elevated at 139. Troponin I came back elevated at 0.316. This is highly suggestive of a myocardial infarction. Further labs ordered such as BNP and serum magnesium and d-dimer and CK-MB fraction. 09/01/19 08:42 D-dimer is elevated at 0.86. CK-MB fraction is also mildly elevated at 3.8. BNP is 235. 09/01/19 09:03: With the 1 call nurse at [facility] in [place] and she has in turn spoken to on-call rubber goods supervisor --she in turn is requested a copy of the CD be sent to her phone for interpretation before we discussed the case. 09/01/19 09:32 I have discussed the case with Dr. Trivedi -- rubber goods supervisor at [facility] in [place] and she feels that this may represent demand ischemia and is unlikely represent true myocardial infarction. She feels that he is okay to pursue EGD here in our hospital.Will discuss with Dr Zamora--non profit job titles surgeon. 09/01/19 10:26: Dr Zamora has attended the patient in the ED with the plan to take him to the OR for removal of suspected impacted material in his esophagus. Departure - Departure Time of Disposition: 10:45 Disposition: DC/Tfer to [facility] Condition: Fair Clinical Impression: Elevated troponin I measurement Impacted esophageal foreign body Qualifiers: Encounter type: initial encounter Qualified Code(s): T18.108A - Unspecified foreign body in esophagus causing other injury, initial encounter - Discharge Information *PRESCRIPTION DRUG MONITORING PROGRAM REVIEWED*: Not Applicable *COPY OF PRESCRIPTION DRUG MONITORING REPORT IN PATIENT SRINIVAS: Not Applicable Sepsis Event Note (ED) - Evaluation Sepsis Screening Result: No Definite Risk - Focused Exam Vital Signs: Vital Signs Temp Pulse Resp BP Pulse Ox Pulse Ox 09/01/19 13:00 36.3 C 74 11 L 132/77 99 99 09/01/19 10:00 36.4 C 64 16 121/67 99 09/01/19 06:56 36.8 C 75 16 137/20 L 96
[2019-09-01] MEDS ORDERED: Metoclopramide 10 MG/2 ML SDV IVPUSH ONE (07:11)
[2019-09-01] MEDS ORDERED: HYDROmorphone 0.5 MG/0.5 ML Syringe IVPUSH ONE (07:11)
[2019-09-01] MEDS ORDERED: Dextrose 5%-Lactated Ringers 1,000 ML IV SCH (07:15)
[2019-09-01] MEDS ORDERED: Ondansetron 4 MG/2 ML SDV IVPUSH ONE (09:39)
--- NOTE | 2019-09-01 11:11 | PCM.HP.2 ---
H&P History of Present Illness - General Date of Service: 09/01/19 Admit Problem/Dx: Admission Diagnosis/Problem Admission Diagnosis/Problem Esophageal dysphagia Source of Information: Patient History Limitations: Reports: No Limitations - History of Present Illness Initial Comments - Free Text/Narative: Patient has a history of cerebral palsy, GERD s/p Ozzy fundoplication in 2004 and history of esophageal strictures s/p multiple dilations the last being in 2016. He was doing well until Wednesday 08/30 when he experienced esophageal food impaction while eating a hotdog. This happened around 1800 hrs. Patient presented to the ED that night but his symptoms seemed to have resolved after a few hours in the ED so he was discharged. The patient was able to tolerate some fluids yesterday but this Am around 0400 he tried to swallow a large pill which he felt got stock in the lower esophagus. Since that time he has not been able to swallow anything including fluids. He is spitting up his saliva. he presented to the ED where chest XR did not reveal any visible esophageal foreign body. However, it appears that his mid and proximal esophagus is dilated. He complains of epigastric pain and mild throat pain. He denies bloody emesis. HE was taken off PPIS 2 yrs ago, now on Pepsid. Continued to have reflux symptoms. In the ED WBC was 19, Troponins were 0.31 Dr. Aldrich spoke to residential living assistant Dr. Trivedi and she felt that this represented demand ischemia and not myocardia ischemia. Onset of Symptoms: Reports: Sudden Duration of Symptoms: Reports: Hour(s):, Constant Location: Reports: Neck, Abdomen Quality: Reports: Dull Severity: Moderate Improves with: Reports: None Worsens with: Reports: Eating Context: Reports: Other (hx of esophageal strictures) Associated Symptoms: Reports: Other Epigastric Pain Score (Numeric/FACES): 7 - Related Data Allergies/Adverse Reactions: Allergies Allergy/AdvReac Type Severity Reaction Status Date / Time meloxicam [From Mobic] Allergy Edema Verified 09/01/19 06:58 Home Medications: Home Meds ClonazePAM [KlonoPIN] 0.5 mg PO BEDTIME 10/13/16 [History] Rosuvastatin Calcium 5 mg PO DAILY 10/13/16 [History] amLODIPine [Norvasc] 5 mg PO BEDTIME 10/13/16 [History] Cyclobenzaprine [Flexeril] 10 mg PO TID PRN #40 tablet 10/19/16 [Rx] Tamsulosin [Flomax] 0.4 mg PO BID #60 cap.er 10/19/16 [Rx] Empagliflozin [Jardiance] 10 mg PO DAILY 09/01/19 [History] Famotidine 20 mg PO ASDIRECTED 09/01/19 [History] lisinopriL [Lisinopril] 5 mg PO DAILY 09/01/19 [History] rOPINIRole HCl [Ropinirole ER] 8 mg PO DAILY 09/01/19 [History] rOPINIRole [Requip] 3 mg PO BEDTIME 09/01/19 [History] Past Medical History Other HEENT History: hx candidal esophogitis, has glasses, dentures, dysphagia Cardiovascular History: Reports: High Cholesterol, Hypertension, Other (See Below) Other Cardiovascular History: bradycardia Respiratory History: Reports: None Gastrointestinal History: Reports: GERD (Has not been taking antireflux medication for 6 months.), Other (See Below) (Patient has a known peptic stricture and was being dilated every [address] Carley Samano surgeon who left [place] area over 2 years ago. 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 Musculoskeletal History: Reports: Osteoarthritis, RA Other Musculoskeletal History: degenerative joint disease, several foot surgeries, carpal tunnel and R thumb surgery, elbow surgery, R unilateral rotator cuff surgery, neck surgery C5-6-7, lapidus procedure, metatarsal osteomy with screw fixation to foot, capsulorrhaphy to 1st metatarsophalangeal joint, revision failed fusion of lapidus bunionectomy at the 1st metatarsal cuniform joint, L3 L4 hemilaminotomy, facetectomy, and decompression in the cauda equina for lateral recess and central spinal stenosis Neurological History: Reports: Cerebral Palsy, CVA, Migraines Other Neuro History: porencephalic cyst, 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 - Past Surgical History Head Surgeries/Procedures: Reports: None HEENT Surgical History: Reports: Cataract Surgery Other HEENT Surgeries/Procedures: full mouth/teeth extractions Cardiovascular Surgical History: Reports: None Respiratory Surgical History: Reports: None GI Surgical History: Reports: Appendectomy, Cholecystectomy, Colonoscopy, EGD, Hernia Repair/Other, Ozzy Fundoplication Other GI Surgeries/Procedures: lysis of adhesions, lap ozzy fundiplication Male Surgical History: Reports: None Endocrine Surgical History: Reports: None Neurological Surgical History: Reports: Other (See Below) Other Neurological Surgeries/Procedures: C5,6,7 SURGERY, L3L4 SURGERY Musculoskeletal Surgical History: Reports: Arthroscopic Procedure, Hip Replacement, Shoulder Surgery, Other (See Below) Other Musculoskeletal Surgeries/Procedures:: Left hip replaced in 2011, revision in 2014, neck surgery, foot surgery. Right shoulder revision 04-26-15. Oncologic Surgical History: Reports: None Dermatological Surgical History: Reports: Skin Biopsy Social & Family History - Family History Family Medical History: Unobtainable - Tobacco Use Smoking Status *Q: Former Smoker Used Tobacco, but Quit: Yes Month/Year Tobacco Last Used: 1998 - Caffeine Use Caffeine Use: Reports: None Other Caffeine Use: 1/day - Recreational Drug Use Recreational Drug Use: No - Living Situation & Occupation Living situation: Reports: Occupation: Disabled H&P Review of Systems - Review of Systems: Review Of Systems: See Below General: Reports: No Symptoms HEENT: Reports: Dysphasia Pulmonary: Reports: No Symptoms Cardiovascular: Reports: No Symptoms Gastrointestinal: Reports: Abdominal Pain (epigastric) Genitourinary: Reports: No Symptoms Musculoskeletal: Reports: No Symptoms Skin: Reports: No Symptoms Exam - Exam Exam: See Below - Vital Signs Vital Signs: Last Vital Signs Temp 97.6 F 09/01/19 10:00 Pulse 64 09/01/19 10:00 Resp 16 09/01/19 10:00 BP 121/67 09/01/19 10:00 Pulse Ox 99 09/01/19 10:00 Weight: 69.853 kg - Exam General: Alert, Oriented, Cooperative HEENT: Mucosa Moist & [place] Neck: Supple, Trachea Midline, Other (mild neck tenderness, no crepitus) Lungs: Clear to Auscultation, Normal Respiratory Effort Cardiovascular: Regular Rhythm, Normal S1, Normal S2, Bradycardia GI/Abdominal Exam: Soft, No Organomegaly, No Distention, No Mass, Tender (epigastrium) - Patient Data Lab Results Last 24 hrs: Laboratory Results - last 24 hr 09/01/19 09/01/19 09/01/19 Range/Units 07:20 07: 07:20 WBC 19.71 H (4.23-9.07) K/mm3 RBC 4.87 (4.63-6.08) M/mm3 Hgb 15.7 (13.7-17.5) gm/dl Hct 45.8 (40.1-51.0) % MCV 94.0 H D (79.0-92.2) fl MCH 32.2 (25.7-32.2) pg MCHC 34.3 (32.2-35.5) g/dl RDW Std Deviation 54.0 H (35.1-43.9) fL Plt Count 251 (163-337) K/mm3 MPV 8.8 L (9.4-12.3) fl Neut % (Auto) 83.6 H (34.0-67.9) % Lymph % (Auto) 9.6 L (21.8-53.1) % [place] % (Auto) 6.4 (5.3-12.2) % Eos % (Auto) 0.3 L (0.8-7.0) Baso % (Auto) 0.1 (0.1-1.2) % Neut # (Auto) 16.48 H (1.78-5.38) K/mm3 Lymph # (Auto) 1.89 (1.32-3.57) K/mm3 [place] # (Auto) 1.26 H (0.30-0.82) K/mm3 Eos # (Auto) 0.06 (0.04-0.54) K/mm3 Baso # (Auto) 0.02 (0.01-0.08) K/mm3 Manual Slide Review Abnormal smear D-Dimer, Quantitative 0.86 H (0.19-0.50) mg/L Sodium 141 (136-145) mEq/L Potassium 4.3 (3.5-5.1) mEq/L Chloride 107 (98-107) mEq/L Carbon Dioxide 23 (21-32) mEq/L Anion Gap 15.3 H (5-15) BUN 35 H (7-18) mg/dL Creatinine 1.8 H (0.7-1.3) mg/dL Est Cr Clr Drug Dosing 36.21 mL/min Estimated GFR (MDRD) 38 (>60) mL/min BUN/Creatinine Ratio 19.4 H (14-18) Glucose 159 H (80-115) mg/dL Calcium 9.1 (8.5-10.1) mg/dL Magnesium (1.8-2.4) mg/dl Total Bilirubin 0.6 (0.2-1.0) mg/dL AST 10 L (15-37) U/L ALT 25 (16-63) U/L Alkaline Phosphatase 139 H (46-116) U/L CK-MB (CK-2) (0-3.6) ng/ml Troponin I 0.316 H* (0.00-0.056) ng/mL C-Reactive Protein (<1.0) mg/dL NT-Pro-B Natriuret Pep (0-125) pg/mL Total Protein 7.4 (6.4-8.2) g/dl Albumin 4.0 (3.4-5.0) g/dl Globulin 3.4 gm/dL Albumin/Globulin Ratio 1.2 (1-2) COVID-19 (MANPREET) (NEGATIVE) 09/01/19 09/01/19 09/01/19 Range/Units 07:20 07:20 07:50 WBC (4.23-9.07) K/mm3 RBC (4.63-6.08) M/mm3 Hgb (13.7-17.5) gm/dl Hct (40.1-51.0) % MCV (79.0-92.2) fl MCH (25.7-32.2) pg MCHC (32.2-35.5) g/dl RDW Std Deviation (35.1-43.9) fL Plt Count (163-337) K/mm3 MPV (9.4-12.3) fl Neut % (Auto) (34.0-67.9) % Lymph % (Auto) (21.8-53.1) % [place] % (Auto) (5.3-12.2) % Eos % (Auto) (0.8-7.0) Baso % (Auto) (0.1-1.2) % Neut # (Auto) (1.78-5.38) K/mm3 Lymph # (Auto) (1.32-3.57) K/mm3 [place] # (Auto) (0.30-0.82) K/mm3 Eos # (Auto) (0.04-0.54) K/mm3 Baso # (Auto) (0.01-0.08) K/mm3 Manual Slide Review D-Dimer, Quantitative (0.19-0.50) mg/L Sodium (136-145) mEq/L Potassium (3.5-5.1) mEq/L Chloride (98-107) mEq/L Carbon Dioxide (21-32) mEq/L Anion Gap (5-15) BUN (7-18) mg/dL Creatinine (0.7-1.3) mg/dL Est Cr Clr Drug Dosing mL/min Estimated GFR (MDRD) (>60) mL/min BUN/Creatinine Ratio (14-18) Glucose (80-115) mg/dL Calcium (8.5-10.1) mg/dL Magnesium 2.3 (1.8-2.4) mg/dl Total Bilirubin (0.2-1.0) mg/dL AST (15-37) U/L ALT (16-63) U/L Alkaline Phosphatase (46-116) U/L CK-MB (CK-2) 3.8 H (0-3.6) ng/ml Troponin I (0.00-0.056) ng/mL C-Reactive Protein 0.2 (<1.0) mg/dL NT-Pro-B Natriuret Pep 235 H (0-125) pg/mL Total Protein (6.4-8.2) g/dl Albumin (3.4-5.0) g/dl Globulin gm/dL Albumin/Globulin Ratio (1-2) COVID-19 (MANPREET) Negative (NEGATIVE) Result Diagrams: 09/01/19 07:20 09/01/19 07:20 Sepsis Event Note - Evaluation Sepsis Screening Result: No Definite Risk - Focused Exam Vital Signs: Vital Signs Temp Pulse Resp BP Pulse Ox 09/01/19 10:00 97.6 F 64 16 121/67 99 09/01/19 06:56 98.3 F 75 16 137/20 L 96 Date Exam was Performed: 09/01/19 Time Exam was Performed: 11:01 Problem List Initiated/Reviewed/Updated: No Orders Last 24hrs: Active Orders 24 hr Category Date Time Status Patient Status [ADT] Stat ADT 09/01/19 10:52 Active EKG Documentation Completion [RC] STAT Care 09/01/19 07:12 Active Chest 1V Frontal [CR] Stat Exams 09/01/19 07:12 Taken Dextrose 5%-Lactated Ringers 1,000 ml Med 09/01/19 07:15 Active IV ASDIRECTED Schedule Procedure [COMM] Urgent Oth 09/01/19 10:56 Ordered Medication Orders Dextrose/Lactated Ringer's (Dextrose 5%-Lactated Ringers) 1,000 mls @ 250 mls/hr IV ASDIRECTED [facility] Last Admin: 09/01/19 07:46 Dose: 250 mls/hr Documented by: DURGA Assessment/Plan Comment:: Patient has symptoms of esophageal impaction. Plan is to proceed with EGD with disimpaction, possible dilation. I discussed with the patient that he is at risk for perforation, bleeding. If there are any concerns for perforation, then we may need to treat him or observe him in the hospital vs transfer. If there is significant inflammation of the esophagus then we may delay dilation to allow inflammation to subside. I discussed with the patient all the risks for surgery including small chance of . Patient understood the risks and verbalized understanding. informed consent obtained.
--- NOTE | 2019-09-01 11:13 | PCM.PREANE ---
Preanesthetic Assessment - Anesthesia/Transfusion/Family Hx Anesthesia History: Prior Anesthesia Without Reaction Other Type of Anesthesia Reaction Comment: pt denies other reactions Family History of Anesthesia Reaction: No Transfusion History: No Prior Transfusion(s) Intubation History: Unknown - Review of Systems General: No Symptoms Pulmonary: No Symptoms Cardiovascular: No Symptoms (HTN, elevated cholesterol, Elevated Troponin) Gastrointestinal: No Symptoms (Epigastric pain, GERD), Abdominal Pain, Difficulty Swallowing Neurological: No Symptoms (Born with Stroke- Left sided weakness and muscle atrophy and contractures born with stroke.), Headache (migraines) Other: Reports: None (Stage III Kidney Disease), Easy Bruising, Diabetes (borderline DM), Throat Pain, Neck Pain (C5, 6,7 neck surgery/denies any neck pain) - Physical Assessment NPO Status Date: 09/01/19 NPO Status Time: 03:30 Vital Signs: Last Vital Signs Temp 36.4 C 09/01/19 10:00 Pulse 64 09/01/19 10:00 Resp 16 09/01/19 10:00 BP 121/67 09/01/19 10:00 Pulse Ox 99 09/01/19 10:00 Height: 1.7 m Weight: 69.853 kg ASA Class: 3E Mental Status: Alert & Oriented x3 Airway Class: Mallampati = 2 Dentition: Reports: Dentures (upper and lower) Thyro-Mental Finger Breadths: 3 Mouth Opening Finger Breadths: 3 ROM/Head Extension: Full Lungs: Clear to Auscultation, Normal Respiratory Effort Cardiovascular: Regular Rate, Regular Rhythm, No Murmurs - Lab Values: Laboratory Last Values WBC 19.71 K/mm3 (4.23-9.07) H 09/01/19 07:20 RBC 4.87 M/mm3 (4.63-6.08) 09/01/19 07:20 Hgb 15.7 gm/dl (13.7-17.5) 09/01/19 07:20 Hct 45.8 % (40.1-51.0) 09/01/19 07:20 MCV 94.0 fl (79.0-92.2) H D 09/01/19 07:20 MCH 32.2 pg (25.7-32.2) 09/01/19 07:20 MCHC 34.3 g/dl (32.2-35.5) 09/01/19 07:20 RDW Std Deviation 54.0 fL (35.1-43.9) H 09/01/19 07:20 Plt Count 251 K/mm3 (163-337) 09/01/19 07:20 MPV 8.8 fl (9.4-12.3) L 09/01/19 07:20 Neut % (Auto) 83.6 % (34.0-67.9) H 09/01/19 07:20 Lymph % (Auto) 9.6 % (21.8-53.1) L 09/01/19 07:20 [place] % (Auto) 6.4 % (5.3-12.2) 09/01/19 07:20 Eos % (Auto) 0.3 (0.8-7.0) L 09/01/19 07:20 Baso % (Auto) 0.1 % (0.1-1.2) 09/01/19 07:20 Neut # (Auto) 16.48 K/mm3 (1.78-5.38) H 09/01/19 07:20 Lymph # (Auto) 1.89 K/mm3 (1.32-3.57) 09/01/19 07:20 [place] # (Auto) 1.26 K/mm3 (0.30-0.82) H 09/01/19 07:20 Eos # (Auto) 0.06 K/mm3 (0.04-0.54) 09/01/19 07:20 Baso # (Auto) 0.02 K/mm3 (0.01-0.08) 09/01/19 07:20 Manual Slide Review Abnormal smear 09/01/19 07:20 D-Dimer, Quantitative 0.86 mg/L (0.19-0.50) H 09/01/19 07:20 Sodium 141 mEq/L (136-145) 09/01/19 07:20 Potassium 4.3 mEq/L (3.5-5.1) 09/01/19 07:20 Chloride 107 mEq/L (98-107) 09/01/19 07:20 Carbon Dioxide 23 mEq/L (21-32) 09/01/19 07:20 Anion Gap 15.3 (5-15) H 09/01/19 07:20 BUN 35 mg/dL (7-18) H 09/01/19 07:20 Creatinine 1.8 mg/dL (0.7-1.3) H 09/01/19 07:20 Est Cr Clr Drug Dosing 36.21 mL/min 09/01/19 07:20 Estimated GFR (MDRD) 38 mL/min (>60) 09/01/19 07:20 BUN/Creatinine Ratio 19.4 (14-18) H 09/01/19 07:20 Glucose 159 mg/dL (80-115) H 09/01/19 07:20 Calcium 9.1 mg/dL (8.5-10.1) 09/01/19 07:20 Magnesium 2.3 mg/dl (1.8-2.4) 09/01/19 07:20 Total Bilirubin 0.6 mg/dL (0.2-1.0) 09/01/19 07:20 AST 10 U/L (15-37) L 09/01/19 07:20 ALT 25 U/L (16-63) 09/01/19 07:20 Alkaline Phosphatase 139 U/L (46-116) H 09/01/19 07:20 CK-MB (CK-2) 3.8 ng/ml (0-3.6) H 09/01/19 07:20 Troponin I 0.316 ng/mL (0.00-0.056) H* 09/01/19 07:20 C-Reactive Protein 0.2 mg/dL (<1.0) 09/01/19 07:20 NT-Pro-B Natriuret Pep 235 pg/mL (0-125) H 09/01/19 07:20 Total Protein 7.4 g/dl (6.4-8.2) 09/01/19 07:20 Albumin 4.0 g/dl (3.4-5.0) 09/01/19 07:20 Globulin 3.4 gm/dL 09/01/19 07:20 Albumin/Globulin Ratio 1.2 (1-2) 09/01/19 07:20 COVID-19 (MANPREET) Negative (NEGATIVE) 09/01/19 07:50 Above labs reviewed and noted and positive D-dimer, and elevated troponin noted. (Dr. Aldrich discussed with cardiology and permission to proceed noted by ink printer.) - Imaging/EKG Impressions: EKG: SR rate= 71, LAD. CXR: Prominent scoliosis, thoracic aorta AV to the left, lungs clear - Allergies Allergies/Adverse Reactions: Allergies Allergy/AdvReac Type Severity Reaction Status Date / Time meloxicam [From Mobic] Allergy Edema Verified 09/01/19 06:58 - Anesthesia Plan Pre-Op Medication Ordered: None - Acknowledgements Anesthesia Type Planned: General Anesthesia Pt an Appropriate Candidate for the Planned Anesthesia: Yes Alternatives and Risks of Anesthesia Discussed w Pt/Guardian: Yes Pt/Guardian Understands and Agrees with Anesthesia Plan: Yes PreAnesthesia Questionnaire Other HEENT History: hx candidal esophogitis, has glasses, dentures, dysphagia Cardiovascular History: Reports: High Cholesterol, Hypertension, Other (See Below) Other Cardiovascular History: bradycardia Respiratory History: Reports: None Gastrointestinal History: Reports: GERD (Has not been taking antireflux medication for 6 months.), Other (See Below) (Patient has a known peptic stricture and was being dilated every [address] Carley Samano surgeon who left [place] area over 2 years ago. 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 Musculoskeletal History: Reports: Osteoarthritis, RA Other Musculoskeletal History: degenerative joint disease, several foot surgeries, carpal tunnel and R thumb surgery, elbow surgery, R unilateral rotator cuff surgery, neck surgery C5-6-7, lapidus procedure, metatarsal osteomy with screw fixation to foot, capsulorrhaphy to 1st metatarsophalangeal joint, revision failed fusion of lapidus bunionectomy at the 1st metatarsal cuniform joint, L3 L4 hemilaminotomy, facetectomy, and decompression in the cauda equina for lateral recess and central spinal stenosis Neurological History: Reports: Cerebral Palsy, CVA, Migraines Other Neuro History: porencephalic cyst, 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 - Past Surgical History Head Surgeries/Procedures: Reports: None HEENT Surgical History: Reports: Cataract Surgery Other HEENT Surgeries/Procedures: full mouth/teeth extractions Cardiovascular Surgical History: Reports: None Respiratory Surgical History: Reports: None GI Surgical History: Reports: Appendectomy, Cholecystectomy, Colonoscopy, EGD, Hernia Repair/Other, Ozzy Fundoplication Other GI Surgeries/Procedures: lysis of adhesions, lap ozzy fundiplication Male Surgical History: Reports: None Endocrine Surgical History: Reports: None Neurological Surgical History: Reports: Other (See Below) Other Neurological Surgeries/Procedures: C5,6,7 SURGERY, L3L4 SURGERY Musculoskeletal Surgical History: Reports: Arthroscopic Procedure, Hip Replacement, Shoulder Surgery, Other (See Below) Other Musculoskeletal Surgeries/Procedures:: Left hip replaced in 2011, revision in 2014, neck surgery, foot surgery. Right shoulder revision 04-26-15. Oncologic Surgical History: Reports: None Dermatological Surgical History: Reports: Skin Biopsy - SUBSTANCE USE Smoking Status *Q: Former Smoker Recreational Drug Use History: No - HOME MEDS Home Medications: Home Meds ClonazePAM [KlonoPIN] 0.5 mg PO BEDTIME 10/13/16 [History] Rosuvastatin Calcium 5 mg PO DAILY 10/13/16 [History] amLODIPine [Norvasc] 5 mg PO BEDTIME 10/13/16 [History] Cyclobenzaprine [Flexeril] 10 mg PO TID PRN #40 tablet 10/19/16 [Rx] Tamsulosin [Flomax] 0.4 mg PO BID #60 cap.er 10/19/16 [Rx] Empagliflozin [Jardiance] 10 mg PO DAILY 09/01/19 [History] Famotidine 20 mg PO ASDIRECTED 09/01/19 [History] lisinopriL [Lisinopril] 5 mg PO DAILY 09/01/19 [History] rOPINIRole HCl [Ropinirole ER] 8 mg PO DAILY 09/01/19 [History] rOPINIRole [Requip] 3 mg PO BEDTIME 09/01/19 [History] - CURRENT (IN HOUSE) MEDS Current Meds: Current Medications Dextrose/Lactated Ringer's (Dextrose 5%-Lactated Ringers) 1,000 mls @ 250 mls/hr IV ASDIRECTED JASON Last Admin: 09/01/19 07:46 Dose: 250 mls/hr Documented by: Discontinued Medications Hydromorphone HCl (Dilaudid) 0.5 mg IVPUSH ONETIME ONE Stop: 09/01/19 07:12 Last Admin: 09/01/19 07:44 Dose: 0.5 mg Documented by: Metoclopramide HCl (Reglan) 7.5 mg IVPUSH ONETIME ONE Stop: 09/01/19 07:12 Last Admin: 09/01/19 07:41 Dose: 7.5 mg Documented by: Ondansetron HCl (Zofran) 4 mg IVPUSH ONETIME ONE Stop: 09/01/19 09:40 Last Admin: 09/01/19 09:44 Dose: 4 mg Documented by:
[2019-09-01] MEDS ORDERED: Lactated Ringers 1,000 ML ONE ×2 (11:29→12:11)
[2019-09-01] MEDS ORDERED: Ondansetron 4 MG/2 ML SDV ONE (11:29)
[2019-09-01] MEDS ORDERED: Propofol 200 MG/20 ML SDV ONE (11:29)
[2019-09-01] MEDS ORDERED: Lidocaine 1% 6 ML ONE (11:29)
[2019-09-01] MEDS ORDERED: Rocuronium 50 MG/5 ML Vial ONE (11:29)
[2019-09-01] MEDS ORDERED: Midazolam 1 MG/ML 2 ML SDV ONE (11:30)
[2019-09-01] MEDS ORDERED: fentaNYL 100 MCG/2 ML SDV ONE (11:30)
--- NOTE | 2019-09-01 11:44 | CR ---
Chest: AP view of the chest was obtained. Comparison: Prior chest x-ray of 10/29/13. Heart size is normal. Tortuous thoracic aorta is seen. Right shoulder prosthesis is noted. Cervical spine surgery is seen. Scoliosis is noted within the spine with mild degenerative change. Lungs are clear with no acute parenchymal change. Impression: 1. Findings as noted above. 2. Nothing acute is identified. Diagnostic code #2 This report was dictated in MDT
[2019-09-01] MEDS ORDERED: Succinylcholine/Sod PF 100 MG/5 ML SYRINGE IV ONE (11:51)
[2019-09-01] MEDS ORDERED: ePHEDrine Sulfate/0.9% NaCl/Pf 25 MG/5 ML SYRINGE IV ONE (12:01)
[2019-09-01] MEDS ORDERED: ePHEDrine 50 MG/ML SDV IVPUSH PRN (12:04)
[2019-09-01] MEDS ORDERED: fentaNYL 100 MCG/2 ML SDV IVPUSH PRN (12:04)
[2019-09-01] MEDS ORDERED: HYDROmorphone 0.5 MG/0.5 ML Syringe IVPUSH PRN (12:05)
[2019-09-01] MEDS ORDERED: Phenylephrine 1 MG in Sodium Chloride 0.9% 10 ML IV SCH (12:15)
[2019-09-01] MEDS ORDERED: Dexamethasone 4 MG/ML SDV ONE ×2 (12:23)
[2019-09-01] MEDS ORDERED: HYDROmorphone 1 MG/ML Syringe ONE (12:40)
--- NOTE | 2019-09-01 13:14 | PCM.POSTAN ---
POST ANESTHESIA ASSESSMENT - MENTAL STATUS Mental Status: Alert - VITAL SIGNS Vital Signs: Last Vital Signs Temp 36.3 C 09/01/19 13:00 Pulse 74 09/01/19 13:00 Resp 11 L 09/01/19 13:00 BP 132/77 09/01/19 13:00 Pulse Ox 99 09/01/19 13:00 - RESPIRATORY Respiratory Status: Respiratory Rate WNL, Airway Patent, O2 Saturation Stable, Supplemental Oxygen - CARDIOVASCULAR CV Status: Pulse Rate WNL, Blood Pressure Stable - GASTROINTESTINAL GI Status: No Symptoms - POST OP HYDRATION Hydration Status: Adequate & Stable
--- NOTE | 2019-09-01 14:40 | PROC ---
DATE OF OPERATION: 09/01/2019 SURGEON: Ga Zamora MD PREOPERATIVE DIAGNOSIS: Esophageal impaction. POSTOPERATIVE DIAGNOSIS: Esophageal impaction. OPERATION PERFORMED: 1. Esophagogastroduodenoscopy with esophageal foreign body disimpaction. 2. Esophageal dilation to 12 mm. 3. Esophageal biopsies. ESTIMATED BLOOD LOSS: Minimal. COMPLICATIONS: None. INDICATION AND CONSENT: The patient is a 69-year-old male who has a long history of GERD with esophageal stricture. The patient underwent a Ozzy fundoplication in 2004 and was doing well. However, his stricture recurred, and he continued to get dilations. Last dilation was in 2017. The patient presented to the emergency room on Sunday, 08/30, with esophageal impaction with food bolus. The patient stayed in the ED for a few hours, and he felt that his symptoms had resolved and returned home. However, this morning, the patient was swallowing a large pill that got stuck again, and his dysphagia returned. Due to this, the patient came to the emergency department. He was not able to swallow anything including saliva. Therefore, emergent esophageal disimpaction was recommended. COVID-19 testing was negative. Troponins, however, were slightly positive to 0.316. Upon discussion with a information security consultant, it was felt that this was due to stress response. The patient's white count was 19, raising concern for esophageal compromise. Otherwise, the patient was doing well without any fevers, chills, or any crepitus. Therefore, we discussed with the patient the risks, benefits, and alternatives to the procedure. Risks discussed included perforation, bleeding, and recurrence of symptoms. I discussed with the patient that he is going to need to be monitored for his heart enzymes. The patient agreed to proceed with the procedure. Informed consent was obtained. DETAILS OF PROCEDURE: The patient was taken to the procedure room, intubated, and placed in left lateral decubitus position. A time-out was performed prior to the start of the procedure. I began the procedure by using a Olympus therapeutic endoscope. I had difficulty advancing the scope through the cricopharyngeal sphincter. Therefore, I switched to a pediatric scope. This was easily able to be passed through the esophagus down to the distal part of the esophagus, and at around 36 mm from incisors, there was impaction from what appeared to be either a pill or food bolus. We used a Santos net to try to retrieve some of the food material. This failed. There was a lot of food material that was stuck throughout the esophageal wall. Then, we used the forceps to push this food particle down into the stomach. This was successful. When this was done, the scope was passed into the stomach and taken all the way to the second portion of the duodenum. The duodenum, duodenal bulb, and the stomach appeared normal. The stomach had diffuse gastritis. Upon retroflexion, there was no indication for prior Ozzy fundoplication. It is possible this wrap has undone itself. There was a stricture in the distal esophagus from 36 mm to 38 mm. This appeared benign, appeared to be hypertrophied distal esophageal tissue. Biopsies were taken for pathology. Then, we decided to go ahead and dilate this area. We used balloon dilation; 8, 9, and 10 mm at first; and then we proceeded from 10, 11, and 12 mm. There was no immediate complication from this. Upon withdrawal and inspection of the esophagus, just distal to the stricture, there was an area that had a small tear in the mucosa. I examined this area closely. There was no bleeding. There was no indication of perforation here. The air was suctioned out from the stomach, and the scope was withdrawn slowly, once again examining the entirety of the esophagus. Besides a large amount of mucus and food particles around the esophagus, there were no other areas of strictures. Loose material was suctioned out. The EGD was removed. This marked the end of the procedure. Patient tolerated the procedure well. In summary, this procedure, we found impaction at the distal esophagus that was successfully disimpacted. There was a stricture at the distal esophagus that was dilated to 12 mm with balloon dilation. The distal esophageal stricture was biopsied. There was no immediate complication. PLAN: To admit the patient for observation. Follow troponins. Since white count of the patient is 19, we will put the patient on antibiotics for possible esophageal inflammation, and I will put the patient n.p.o. and follow him clinically. MMODAL /[id number] KATIE
[2019-09-01] MEDS: Pantoprazole 40 MG Vial IVPUSH SCH (15:00)
[2019-09-01] MEDS ORDERED: Ondansetron 4 MG Tab.DIS PO PRN (15:37)
[2019-09-01] MEDS ORDERED: Lactated Ringers 1,000 ML IV SCH (15:37)
[2019-09-01] MEDS ORDERED: Piperacillin/Tazobactam 4.5 GM in Sodium Chloride 0.9% 100 ML IV ONE (16:00)
[2019-09-01] MEDS ORDERED: Fluconazole/Normal Saline 200 MG in Premix Bag 1 BAG IV SCH (17:00)
[2019-09-01] MEDS: Heparin Sodium 5,000 Units/ML Vial SUBCUT SCH (17:38)
[2019-09-02] MEDS: Piperacillin/Tazobactam 4.5 GM in Sodium Chloride 0.9% 100 ML IV SCH ×2 (00:12→11:00)
[2019-09-02] MEDS: Heparin Sodium 5,000 Units/ML Vial SUBCUT SCH ×2 (00:13→10:51)
[2019-09-02] MEDS ORDERED: rOPINIRole 1 MG Tab PO SCH (00:30)
[2019-09-02] MEDS ORDERED: ClonazePAM 0.5 MG Tab PO SCH (00:30)
--- NOTE | 2019-09-02 07:43 | PCM.SURGPN ---
- General Info Date of Service: 09/02/19 POD#: 1 Functional Status: Reports: Pain Controlled, Other (Troponins trenading down, WBC trending down) - Review of Systems General: Reports: No Symptoms HEENT: Reports: No Symptoms Pulmonary: Reports: No Symptoms Cardiovascular: Reports: No Symptoms Gastrointestinal: Reports: No Symptoms Genitourinary: Reports: No Symptoms Musculoskeletal: Reports: No Symptoms Skin: Reports: No Symptoms Neurological: Reports: No Symptoms - Patient Data Vitals - Most Recent: Last Vital Signs Temp 97.9 F 09/02/19 03:57 Pulse 48 L 09/02/19 03:57 Resp 16 09/02/19 03:57 BP 116/59 L 09/02/19 03:57 Pulse Ox 94 L 09/02/19 03:57 Weight - Most Recent: 70.352 kg I&O - Last 24 Hours: Intake & Output 09/01/19 09/02/19 09/02/19 22:59 06:59 14:59 Intake Total 300 225 Output Total 1300 Balance -1000 225 Lab Results Last 24 Hrs: Laboratory Results - last 24 hr 09/01/19 09/01/19 09/01/19 Range/Units 07:20 07:20 07:20 WBC (4.23-9.07) K/mm3 RBC (4.63-6.08) M/mm3 Hgb (13.7-17.5) gm/dl Hct (40.1-51.0) % MCV (79.0-92.2) fl MCH (25.7-32.2) pg MCHC (32.2-35.5) g/dl RDW Std Deviation (35.1-43.9) fL Plt Count (163-337) K/mm3 MPV (9.4-12.3) fl Neut % (Auto) (34.0-67.9) % Lymph % (Auto) (21.8-53.1) % [place] % (Auto) (5.3-12.2) % Eos % (Auto) (0.8-7.0) Baso % (Auto) (0.1-1.2) % Neut # (Auto) (1.78-5.38) K/mm3 Lymph # (Auto) (1.32-3.57) K/mm3 [place] # (Auto) (0.30-0.82) K/mm3 Eos # (Auto) (0.04-0.54) K/mm3 Baso # (Auto) (0.01-0.08) K/mm3 Manual Slide Review Abnormal smear D-Dimer, Quantitative 0.86 H (0.19-0.50) mg/L Sodium 141 (136-145) mEq/L Potassium 4.3 (3.5-5.1) mEq/L Chloride 107 (98-107) mEq/L Carbon Dioxide 23 (21-32) mEq/L Anion Gap 15.3 H (5-15) BUN 35 H (7-18) mg/dL Creatinine 1.8 H (0.7-1.3) mg/dL Est Cr Clr Drug Dosing 36.21 mL/min Estimated GFR (MDRD) 38 (>60) mL/min BUN/Creatinine Ratio 19.4 H (14-18) Glucose 159 H (80-115) mg/dL Calcium 9.1 (8.5-10.1) mg/dL Magnesium (1.8-2.4) mg/dl Total Bilirubin 0.6 (0.2-1.0) mg/dL AST 10 L (15-37) U/L ALT 25 (16-63) U/L Alkaline Phosphatase 139 H (46-116) U/L CK-MB (CK-2) (0-3.6) ng/ml Troponin I 0.316 H* (0.00-0.056) ng/mL C-Reactive Protein (<1.0) mg/dL NT-Pro-B Natriuret Pep (0-125) pg/mL Total Protein 7.4 (6.4-8.2) g/dl Albumin 4.0 (3.4-5.0) g/dl Globulin 3.4 gm/dL Albumin/Globulin Ratio 1.2 (1-2) COVID-19 (MANPREET) (NEGATIVE) 09/01/19 09/01/19 09/01/19 Range/Units 07:20 07:20 07:50 WBC (4.23-9.07) K/mm3 RBC (4.63-6.08) M/mm3 Hgb (13.7-17.5) gm/dl Hct (40.1-51.0) % MCV (79.0-92.2) fl MCH (25.7-32.2) pg MCHC (32.2-35.5) g/dl RDW Std Deviation (35.1-43.9) fL Plt Count (163-337) K/mm3 MPV (9.4-12.3) fl Neut % (Auto) (34.0-67.9) % Lymph % (Auto) (21.8-53.1) % [place] % (Auto) (5.3-12.2) % Eos % (Auto) (0.8-7.0) Baso % (Auto) (0.1-1.2) % Neut # (Auto) (1.78-5.38) K/mm3 Lymph # (Auto) (1.32-3.57) K/mm3 [place] # (Auto) (0.30-0.82) K/mm3 Eos # (Auto) (0.04-0.54) K/mm3 Baso # (Auto) (0.01-0.08) K/mm3 Manual Slide Review D-Dimer, Quantitative (0.19-0.50) mg/L Sodium (136-145) mEq/L Potassium (3.5-5.1) mEq/L Chloride (98-107) mEq/L Carbon Dioxide (21-32) mEq/L Anion Gap (5-15) BUN (7-18) mg/dL Creatinine (0.7-1.3) mg/dL Est Cr Clr Drug Dosing mL/min Estimated GFR (MDRD) (>60) mL/min BUN/Creatinine Ratio (14-18) Glucose (80-115) mg/dL Calcium (8.5-10.1) mg/dL Magnesium 2.3 (1.8-2.4) mg/dl Total Bilirubin (0.2-1.0) mg/dL AST (15-37) U/L ALT (16-63) U/L Alkaline Phosphatase (46-116) U/L CK-MB (CK-2) 3.8 H (0-3.6) ng/ml Troponin I (0.00-0.056) ng/mL C-Reactive Protein 0.2 (<1.0) mg/dL NT-Pro-B Natriuret Pep 235 H (0-125) pg/mL Total Protein (6.4-8.2) g/dl Albumin (3.4-5.0) g/dl Globulin gm/dL Albumin/Globulin Ratio (1-2) COVID-19 (MANPREET) Negative (NEGATIVE) 09/01/19 09/01/19 09/02/19 Range/Units 15:45 21:51 05:15 WBC 16.99 H (4.23-9.07) K/mm3 RBC 4.52 L (4.63-6.08) M/mm3 Hgb 14.5 (13.7-17.5) gm/dl Hct 43.4 (40.1-51.0) % MCV 96.0 H (79.0-92.2) fl MCH 32.1 (25.7-32.2) pg MCHC 33.4 (32.2-35.5) g/dl RDW Std Deviation 55.1 H (35.1-43.9) fL Plt Count 236 (163-337) K/mm3 MPV 9.1 L (9.4-12.3) fl Neut % (Auto) 90.7 H (34.0-67.9) % Lymph % (Auto) 5.6 L (21.8-53.1) % [place] % (Auto) 3.4 L (5.3-12.2) % Eos % (Auto) 0 L (0.8-7.0) Baso % (Auto) 0.1 (0.1-1.2) % Neut # (Auto) 15.41 H (1.78-5.38) K/mm3 Lymph # (Auto) 0.95 L (1.32-3.57) K/mm3 [place] # (Auto) 0.58 (0.30-0.82) K/mm3 Eos # (Auto) 0.00 L (0.04-0.54) K/mm3 Baso # (Auto) 0.01 (0.01-0.08) K/mm3 Manual Slide Review Abnormal smear D-Dimer, Quantitative (0.19-0.50) mg/L Sodium (136-145) mEq/L Potassium (3.5-5.1) mEq/L Chloride (98-107) mEq/L Carbon Dioxide (21-32) mEq/L Anion Gap (5-15) BUN (7-18) mg/dL Creatinine (0.7-1.3) mg/dL Est Cr Clr Drug Dosing mL/min Estimated GFR (MDRD) (>60) mL/min BUN/Creatinine Ratio (14-18) Glucose (80-115) mg/dL Calcium (8.5-10.1) mg/dL Magnesium (1.8-2.4) mg/dl Total Bilirubin (0.2-1.0) mg/dL AST (15-37) U/L ALT (16-63) U/L Alkaline Phosphatase (46-116) U/L CK-MB (CK-2) (0-3.6) ng/ml Troponin I 0.216 H* 0.165 H* (0.00-0.056) ng/mL C-Reactive Protein (<1.0) mg/dL NT-Pro-B Natriuret Pep (0-125) pg/mL Total Protein (6.4-8.2) g/dl Albumin (3.4-5.0) g/dl Globulin gm/dL Albumin/Globulin Ratio (1-2) COVID-19 (MANPREET) (NEGATIVE) 09/02/19 Range/Units 05:15 WBC (4.23-9.07) K/mm3 RBC (4.63-6.08) M/mm3 Hgb (13.7-17.5) gm/dl Hct (40.1-51.0) % MCV (79.0-92.2) fl MCH (25.7-32.2) pg MCHC (32.2-35.5) g/dl RDW Std Deviation (35.1-43.9) fL Plt Count (163-337) K/mm3 MPV (9.4-12.3) fl Neut % (Auto) (34.0-67.9) % Lymph % (Auto) (21.8-53.1) % [place] % (Auto) (5.3-12.2) % Eos % (Auto) (0.8-7.0) Baso % (Auto) (0.1-1.2) % Neut # (Auto) (1.78-5.38) K/mm3 Lymph # (Auto) (1.32-3.57) K/mm3 [place] # (Auto) (0.30-0.82) K/mm3 Eos # (Auto) (0.04-0.54) K/mm3 Baso # (Auto) (0.01-0.08) K/mm3 Manual Slide Review D-Dimer, Quantitative (0.19-0.50) mg/L Sodium (136-145) mEq/L Potassium (3.5-5.1) mEq/L Chloride (98-107) mEq/L Carbon Dioxide (21-32) mEq/L Anion Gap (5-15) BUN (7-18) mg/dL Creatinine (0.7-1.3) mg/dL Est Cr Clr Drug Dosing mL/min Estimated GFR (MDRD) (>60) mL/min BUN/Creatinine Ratio (14-18) Glucose (80-115) mg/dL Calcium (8.5-10.1) mg/dL Magnesium (1.8-2.4) mg/dl Total Bilirubin (0.2-1.0) mg/dL AST (15-37) U/L ALT (16-63) U/L Alkaline Phosphatase (46-116) U/L CK-MB (CK-2) (0-3.6) ng/ml Troponin I 0.140 H* (0.00-0.056) ng/mL C-Reactive Protein (<1.0) mg/dL NT-Pro-B Natriuret Pep (0-125) pg/mL Total Protein (6.4-8.2) g/dl Albumin (3.4-5.0) g/dl Globulin gm/dL Albumin/Globulin Ratio (1-2) COVID-19 (MANPREET) (NEGATIVE) Med Orders - Current: Current Medications Clonazepam (Klonopin) 0.5 mg PO BEDTIME [facility] Last Admin: 09/02/19 00:32 Dose: 0.5 mg Documented by: Heparin Sodium (Porcine) (Heparin Sodium) 5,000 units SUBCUT Q8H [facility] Last Admin: 09/02/19 00:13 Dose: 5,000 units Documented by: Lactated Ringer's (Ringers, Lactated) 1,000 mls @ 75 mls/hr IV ASDIRECTED [facility] Last Admin: 09/02/19 03:59 Dose: 75 mls/hr Documented by: Fluconazole/Sodium Chloride (200 mg/ Premix) 100 mls @ 100 mls/hr IV Q24H [facility] Last Admin: 09/01/19 19:00 Dose: 100 mls/hr Documented by: Piperacillin Sod/Tazobactam (Sod 4.5 gm/ Sodium Chloride) 100 mls @ 25 mls/hr IV Q8H [facility] Last Admin: 09/02/19 00:12 Dose: 25 mls/hr Documented by: Ondansetron HCl (Zofran Odt) 4 mg PO Q4H PRN PRN Reason: nausea, able to take PO Pantoprazole Sodium (Protonix Iv) 40 mg IVPUSH DAILY [facility] Last Admin: 09/01/19 15:00 Dose: 40 mg Documented by: Ropinirole HCl (Requip) 3 mg PO BEDTIME [facility] Last Admin: 09/02/19 00:32 Dose: 3 mg Documented by: Discontinued Medications Dexamethasone (Dexamethasone) Confirm Administered Dose 4 mg .ROUTE .STK-MED ONE Stop: 09/01/19 12:24 Dexamethasone (Dexamethasone) Confirm Administered Dose 4 mg .ROUTE .STK-MED ONE Stop: 09/01/19 12:24 Ephedrine Sulfate (Ephedrine 25 Mg/5 Ml Syringe) Confirm Administered Dose 25 mg IV .STK-MED ONE Stop: 09/01/19 12:02 Ephedrine Sulfate (Ephedrine Sulfate) 5 mg IVPUSH ASDIRECTED PRN PRN Reason: Hypotension Stop: 09/01/19 18:00 Fentanyl (Sublimaze) Confirm Administered Dose 100 mcg .ROUTE .STK-MED ONE Stop: 09/01/19 11:31 Fentanyl (Sublimaze) 50 mcg IVPUSH Q5M PRN PRN Reason: Pain Stop: 09/01/19 18:00 Hydromorphone HCl (Dilaudid) 0.5 mg IVPUSH ONETIME ONE Stop: 09/01/19 07:12 Last Admin: 09/01/19 07:44 Dose: 0.5 mg Documented by: Hydromorphone HCl (Dilaudid) 0.5 mg IVPUSH ONETIME PRN PRN Reason: Pain Stop: 09/01/19 18:00 Hydromorphone HCl (Dilaudid) Confirm Administered Dose 1 mg .ROUTE .STK-MED ONE Stop: 09/01/19 12:41 Dextrose/Lactated Ringer's (Dextrose 5%-Lactated Ringers) 1,000 mls @ 250 mls/hr IV ASDIRECTED JASON Last Admin: 09/01/19 07:46 Dose: 250 mls/hr Documented by: Lidocaine HCl (Xylocaine-Mpf 1%) Confirm Administered Dose 6 mls @ as directed .ROUTE .STK-MED ONE Stop: 09/01/19 11:30 Lactated Ringer's (Ringers, Lactated) Confirm Administered Dose 1,000 mls @ as directed .ROUTE .STK-MED ONE Stop: 09/01/19 11:30 Phenylephrine HCl 1 mg/ Sodium (Chloride) 10.1 mls @ 3,636 mls/hr IV TITRATE JASON; Protocol Stop: 09/01/19 18:00 Lactated Ringer's (Ringers, Lactated) Confirm Administered Dose 1,000 mls @ as directed .ROUTE .STK-MED ONE Stop: 09/01/19 12:12 Piperacillin Sod/Tazobactam (Sod 4.5 gm/ Sodium Chloride) 100 mls @ 200 mls/hr IV ONETIME ONE Stop: 09/01/19 16:29 Last Admin: 09/01/19 17:41 Dose: 200 mls/hr Documented by: Metoclopramide HCl (Reglan) 7.5 mg IVPUSH ONETIME ONE Stop: 09/01/19 07:12 Last Admin: 09/01/19 07:41 Dose: 7.5 mg Documented by: Midazolam HCl (Versed 1 Mg/Ml) Confirm Administered Dose 2 mg .ROUTE .STK-MED ONE Stop: 09/01/19 11:31 Ondansetron HCl (Zofran) 4 mg IVPUSH ONETIME ONE Stop: 09/01/19 09:40 Last Admin: 09/01/19 09:44 Dose: 4 mg Documented by: Ondansetron HCl (Zofran) Confirm Administered Dose 4 mg .ROUTE .STK-MED ONE Stop: 09/01/19 11:30 Propofol (Diprivan 20 Ml) Confirm Administered Dose 200 mg .ROUTE .STK-MED ONE Stop: 09/01/19 11:30 Rocuronium [place] (Zemuron) Confirm Administered Dose 0 mg .ROUTE .STK-MED ONE Stop: 09/01/19 11:30 - Exam General: Alert, Oriented, Cooperative Lungs: Clear to Auscultation, Normal Respiratory Effort Cardiovascular: Regular Rate, Regular Rhythm, No Murmurs GI/Abdominal Exam: Normal Bowel Sounds, Soft, Non-Tender, No Organomegaly, No Distention Sepsis Event Note - Evaluation Sepsis Screening Result: No Definite Risk - Focused Exam Vital Signs: Vital Signs Temp Temp Pulse Pulse Resp BP BP 09/02/19 03:57 97.9 F 48 L 16 116/59 L 09/01/19 22:50 97.7 F 103/55 L 09/01/19 21:00 98.2 F 62 18 114/54 L 09/01/19 20:58 98.1 F 114/54 L 09/01/19 20:55 114/54 L Pulse Ox 09/02/19 03:57 94 L 09/01/19 22:50 09/01/19 21:00 98 09/01/19 20:58 09/01/19 20:55 Date Exam was Performed: 09/02/19 Time Exam was Performed: 07:39 - Problem List Review Problem List Initiated/Reviewed/Updated: No - My Orders Last 24 Hours: Active Orders 24 hr Category Date Time Status Admission Status [Patient Status] [ADT] Routine ADT 09/01/19 15:43 Active Antiembolic Devices [RC] BID Care 09/01/19 15:37 Active Intake and Output [RC] 04,16 Care 09/01/19 15:37 Active Oxygen Therapy [RC] PRN Care 09/01/19 15:37 Active Pulse Oximetry [RC] CONTINUOUS Care 09/01/19 15:37 Active Ready for Discharge [RC] PER UNIT ROUTINE Care 09/02/19 07:39 Ordered Up With Assistance [RC] BID Care 09/01/19 15:37 Active Up ad [place] [RC] BID Care 09/01/19 15:37 Active VTE/DVT Education [RC] BID Care 09/01/19 15:37 Active Vital Signs [RC] Q4HR Care 09/01/19 15:37 Active Full Liquid Diet [DIET] Diet 09/02/19 Lunch Ordered ClonazePAM [KlonoPIN] Med 09/02/19 00:30 Active 0.5 mg PO BEDTIME Fluconazole/Normal Saline [Diflucan in NS 200 MG/100 ML Med 09/01/19 17:00 Active ] 200 mg Premix Bag 1 bag IV Q24H Heparin Sodium Med 09/01/19 16:00 Active 5,000 units SUBCUT Q8H Lactated Ringers [Ringers, Lactated] 1,000 ml Med 09/01/19 15:37 Active IV ASDIRECTED Ondansetron [Zofran ODT] Med 09/01/19 15:37 Active 4 mg PO Q4H PRN Pantoprazole [ProTONIX IV] Med 09/01/19 13:30 Active 40 mg IVPUSH DAILY Piperacillin/Tazobactam [Piperacil-Tazobact] 4.5 gm Med 09/02/19 00:00 Active Sodium Chloride 0.9% [Normal Saline] 100 ml IV Q8H rOPINIRole [Requip] Med 09/02/19 00:30 Active 3 mg PO BEDTIME Schedule Procedure [COMM] Urgent Oth 09/01/19 10:56 Ordered Sequential Compression Device [OM.PC] Per Unit Routine Oth 09/01/19 15:37 Or dered Resuscitation Status Routine Resus Stat 09/01/19 13:04 Ordered Medication Orders Clonazepam (Klonopin) 0.5 mg PO BEDTIME [facility] Last Admin: 09/02/19 00:32 Dose: 0.5 mg Documented by: GUME Heparin Sodium (Porcine) (Heparin Sodium) 5,000 units SUBCUT Q8H [facility] Last Admin: 09/02/19 00:13 Dose: 5,000 units Documented by: Admin: 09/01/19 17:38 Dose: 5,000 units Documented by: EAROXANNA Lactated Ringer's (Ringers, Lactated) 1,000 mls @ 75 mls/hr IV ASDIRECTED [facility] Last Admin: 09/02/19 03:59 Dose: 75 mls/hr Documented by: BRADJUL Fluconazole/Sodium Chloride (200 mg/ Premix) 100 mls @ 100 mls/hr IV Q24H [facility] Last Admin: 09/01/19 19:00 Dose: 100 mls/hr Documented by: PROEAMA Piperacillin Sod/Tazobactam (Sod 4.5 gm/ Sodium Chloride) 100 mls @ 25 mls/hr IV Q8H [facility] Last Admin: 09/02/19 00:12 Dose: 25 mls/hr Documented by: GUME Ondansetron HCl (Zofran Odt) 4 mg PO Q4H PRN PRN Reason: nausea, able to take PO Pantoprazole Sodium (Protonix Iv) 40 mg IVPUSH DAILY [facility] Last Admin: 09/01/19 15:00 Dose: 40 mg Documented by: ZACK Ropinirole HCl (Requip) 3 mg PO BEDTIME [facility] Last Admin: 09/02/19 00:32 Dose: 3 mg Documented by: GUME - Assessment Assessment (Free Text/Narrative):: Patient is pod1 s/p EGD, FB removal and dilation. Doing well, trops trending down, epigastric pain improving. - stop antibiotics - start liquid diet - crush pills - dc IVF - ok to discharge to home. He will start Omeprazole. - Follow up with PCP. If symptoms recur, patient advised to follow up with me.
--- NOTE | 2019-09-02 07:55 | PCM48HPAN ---
Post Anesthesia Note - EVALUATION WITHIN 48HRS OF ANESTHETIC Vital Signs in Normal Range: Yes Patient Participated in Evaluation: Yes Respiratory Function Stable: Yes Airway Patent: Yes Cardiovascular Function Stable: Yes Hydration Status Stable: Yes Pain Control Satisfactory: Yes Nausea and Vomiting Control Satisfactory: Yes Mental Status Recovered: Yes Vital Signs: Last Vital Signs Temp 36.6 C 09/02/19 03:57 Pulse 48 L 09/02/19 03:57 Resp 16 09/02/19 03:57 BP 116/59 L 09/02/19 03:57 Pulse Ox 94 L 09/02/19 03:57
[2019-09-02] MEDS: Pantoprazole 40 MG Vial IVPUSH SCH (08:58)
[2019-09-02 09:15] VITALS: BP 115/65; PULSE 60
== END 2019-09-02 10:06 | disposition home or self-care (01) ==
LOC: JD.ED 06:44 → JD.SDS 10:53 → JD.MS 13:02
PROVIDERS: ADMIT Surgery; ATTEND Surgery
DX: T18.128A Food in esophagus causing other injury, initial encounter (principal); K22.2 Esophageal obstruction; K22.8 Other specified diseases of esophagus; R79.89 Other specified abnormal findings of blood chemistry; K91.81 Other intraoperative complications of digestive system; K21.9 Gastro-esophageal reflux disease without esophagitis; E78.00 Pure hypercholesterolemia, unspecified; I10 Essential (primary) hypertension; E11.9 Type 2 diabetes mellitus without complications; Z11.59 Encounter for screening for other viral diseases; Z87.891 Personal history of nicotine dependence; Z88.8 Allergy status to other drugs, medicaments and biological substances; Z79.84 Long term (current) use of oral hypoglycemic drugs; Z79.899 Other long term (current) drug therapy; Z98.890 Other specified postprocedural states; Z98.84 Bariatric surgery status; Z87.19 Personal history of other diseases of the digestive system; Z90.49 Acquired absence of other specified parts of digestive tract
CPT/HCPCS: 36415; 43239; 43247; 43249; 71045; 80053; 82553; 83735; 83880; 84484; 85025; 85379; 86140; 93005; 96361; 96365; 96366; 96367; 96375; 99285; A9270; C9113; G0378; J0171; J0330; J1100; J1170; J1450; J1644; J2001; J2250; J2405; J2543; J2704; J2765; J7050; J7120; J7121; U0002; 00731; 96374; J3010

== ENCOUNTER 2020-10-13 22:52 | Emergency (ER) | payer MEDICARE, BC ==
[2020-10-13] MEDS ORDERED: Acetaminophen 325 MG Tab PO ONE (23:19)
--- NOTE | 2020-10-13 23:28 | EDM.PDOC ---
ED HPI GENERAL MEDICAL PROBLEM - General Chief Complaint: Fever Stated Complaint: [facility] Time Seen by Provider: 10/13/20 23:05 Source of Information: Reports: Patient History Limitations: Reports: No Limitations - History of Present Illness INITIAL COMMENTS - FREE TEXT/NARRATIVE: 70-year-old male is brought to the ED per [facility] requiring total assist because he states he cannot walk due to weakness. He became acutely ill today with fever chills headache sore throat and decreased appetite. No cough or sputum production. He knows he was exposed to his ojpdcyr-fj-ckr 4 days ago whom has since proved to be Covid 19+. He states he has no underlying heart disease or hypertension issues. He is not diabetic and he is not overweight. He last took Tylenol around 1800 hrs. last evening. At present he has no nausea vomiting or diarrhea. On review of the patient's med list he does indeed have hypertension or at least is taking antihypertensive medication and is diabetic. Patient initially told me he was not using a walker or cane around home but in fact he is using a walker since having right foot surgery in July. He uses a walker even in the house Onset: Today Onset Date: 10/13/20 (Awoke with symptoms this morning around 0800 hrs.) Duration: Hour(s):, Getting Worse Location: Reports: Generalized (And headache with fever and chills. Sore throat) Quality: Reports: Ache, Throbbing Severity: Moderate Improves with: Reports: None Worsens with: Reports: Other (To try and walk.) Context: Reports: Sick Contact (Uxicbwe-dg-xep whom he had supper with in [place], [place] 4 days ago has since developed mid 19 illness.). Denies: Activity, Exercise, Lifting, Trauma Associated Symptoms: Reports: Loss of Appetite, Malaise, Weakness (He states that he simply cannot walk due to pain in his joints. He normally does not walk with a cane or walker). 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 Headache Pain Score (Numeric/FACES): 7 - Related Data Allergies Allergy/AdvReac Type Severity Reaction Status Date / Time meloxicam [From Mobic] Allergy Edema Verified 10/13/20 23:00 Home Meds: Home Meds ClonazePAM [KlonoPIN] 0.5 mg PO BEDTIME 10/13/16 [History] Rosuvastatin Calcium 5 mg PO DAILY 10/13/16 [History] amLODIPine [Norvasc] 5 mg PO BEDTIME 10/13/16 [History] Tamsulosin [Flomax] 0.4 mg PO BID #60 cap.er 10/19/16 [Rx] Empagliflozin [Jardiance] 10 mg PO DAILY 09/01/19 [History] Famotidine 20 mg PO ASDIRECTED 09/01/19 [History] lisinopriL [Lisinopril] 5 mg PO DAILY 09/01/19 [History] rOPINIRole HCl [Ropinirole ER] 8 mg PO DAILY 09/01/19 [History] rOPINIRole [Requip] 3 mg PO BEDTIME 09/01/19 [History] Omeprazole 40 mg PO ACBREAKFAST #90 capsule. 09/02/19 [Rx] Past Medical History Other HEENT History: hx candidal esophogitis, has glasses, dentures, dysphagia Cardiovascular History: Reports: High Cholesterol, Hypertension, Other (See Below) Other Cardiovascular History: bradycardia Respiratory History: Reports: None Gastrointestinal History: Reports: GERD, Other (See Below) Other Gastrointestinal History: hepatic hemangioma, dysphagia Genitourinary History: Reports: BPH, Renal Calculus, Retention, Urinary (He is on Flomax 0.4 mg twice daily) Other Genitourinary History: hx renal insufficiency, Renal cyst R, malignant neoplasm of bladder, hematuria 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 Musculoskeletal History: Reports: Osteoarthritis, RA Other Musculoskeletal History: degenerative joint disease, several foot surgeries, carpal tunnel and R thumb surgery, elbow surgery, R unilateral rotator cuff surgery, neck surgery C5-6-7, lapidus procedure, metatarsal osteomy with screw fixation to foot, capsulorrhaphy to 1st metatarsophalangeal joint, revision failed fusion of lapidus bunionectomy at the 1st metatarsal cuniform joint, L3 L4 hemilaminotomy, facetectomy, and decompression in the cauda equina for lateral recess and central spinal stenosis Neurological History: Reports: Cerebral Palsy, CVA, Migraines Other Neuro History: porencephalic cyst, 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 - Past Surgical History HEENT Surgical History: Reports: Cataract Surgery Other HEENT Surgeries/Procedures: full mouth/teeth extractions Cardiovascular Surgical History: Reports: None GI Surgical History: Reports: Appendectomy, Cholecystectomy, Colonoscopy, EGD, Hernia Repair/Other, Ozzy Fundoplication Other GI Surgeries/Procedures: lysis of adhesions, lap ozzy fundiplication Male Surgical History: Reports: None Endocrine Surgical History: Reports: None Neurological Surgical History: Reports: Other (See Below) Other Neurological Surgeries/Procedures: C5,6,7 SURGERY, L3L4 SURGERY Musculoskeletal Surgical History: Reports: Arthroscopic Procedure, Hip Replacement, Shoulder Surgery, Other (See Below) Other Musculoskeletal Surgeries/Procedures:: Left hip replaced in 2011, revision in 2014, neck surgery, foot surgery. Right shoulder revision 04-26-15. Oncologic Surgical History: Reports: None Dermatological Surgical History: Reports: Skin Biopsy Social & Family History - Family History Family Medical History: Unobtainable - Tobacco Use Tobacco Use Status *Q: Former Tobacco User Used Tobacco, but Quit: Yes Month/Year Tobacco Last Used: 02/1998 - Caffeine Use Caffeine Use: Reports: Soda Other Caffeine Use: 1/day - Recreational Drug Use Recreational Drug Use: No - Living Situation & Occupation Living situation: Reports: Occupation: Disabled ED [facility] GENERAL - Review of Systems Review Of Systems: See Below Constitutional: Reports: Fever, Chills, Malaise, Weakness, Fatigue, Decreased Appetite. Denies: Weight Loss HEENT: Reports: Glasses, Throat Pain Respiratory: Denies: Shortness of Breath (Sore throat today), Wheezing, Pleu ritic Chest Pain, Cough, Sputum Cardiovascular: Reports: Blood Pressure Problem. Denies: Chest Pain, Claudication, Dyspnea on Exertion, Edema, Orthopnea, Palpitations, Syncope, Other Endocrine: Reports: Fatigue GI/Abdominal: Reports: No Symptoms, Abdominal Pain : Reports: Frequency, Other Musculoskeletal: Reports: Neck Pain, Shoulder Pain (Nocturia x2), Back Pain. Denies: Arm Pain ( has had complete right shoulder replacement right side), Hand Pain, Leg Pain, Foot Pain, Joint Pain (Back pain), Joint Swelling Skin: Reports: No Symptoms Neurological: Reports: Dizziness, Headache (Occasional dizziness), Difficulty Wa lking (Neurolysed weakness difficulty walking at all today due to weakness and pain in his lower extremities), Weakness. Denies: Confusion, Syncope Psychiatric: Reports: No Symptoms Hematologic/Lymphatic: Reports: No Symptoms Immunologic: Reports: No Symptoms ED EXAM, GENERAL - Physical Exam Exam: See Below Exam Limited By: No Limitations General Appearance: Alert, WD/WN, No Apparent Distress, Other (Paramedics indicate he was a total left. Temperature is 37.1 degrees. Heart rate 98 sinus respiratory is 22 with O2 sats of 99% room air BP 138/78) Eye Exam: Bilateral Eye: Normal Inspection (No blepharal pallor or scleral icterus), PERRL Ears: Normal External Exam, Normal TMs Throat/Mouth: Normal Inspection, Normal Lips, Normal Teeth, Normal Oropharynx, Other (Posterior oropharynx is dry) Head: Atraumatic ( and very slightly erythematous without exudate), Normocephalic Neck: Normal Inspection, Non-Tender, Full Range of Motion, Limited Range of Motion (But is on lateral rotation lateral flexion). No: Lymphadenopathy (L), Lymphadenopathy (R) Respiratory/Chest: Lungs Clear, Normal Breath Sounds, Chest Non-Tender, Respiratory Distress (Mild tachypnea at rest) Cardiovascular: Regular Rate, Rhythm, No Edema, No Gallop, No Murmur, No Rub. No: Normal Peripheral Pulses Peripheral Pulses: 2+: Carotid (L), Carotid (R), Posterior Tibial (L), Posterior Tibial (R), Dorsalis Pedis (L), Dorsalis Pedis (R) GI/Abdominal: Normal Bowel Sounds, Soft, Non-Tender, No Organomegaly, No Distention Back Exam: Normal Inspection, Full Range of Motion, Other. No: CVA Tenderness (L), CVA Tenderness (R) Extremities: Normal Inspection (Acquired a good deal of assist to sit up in the bed.), Normal Range of Motion, Non-Tender, No Pedal Edema Neurological: Alert, Oriented, CN II-XII Intact, Normal Cognition Psychiatric: Normal Affect, Normal Mood Skin Exam: Warm, Dry, Intact, Normal Color, No Rash #1 Interpretation EKG Date: 10/13/20 Time: 22:58 Rhythm: NSR Rate (Beats/Min): 77 [place]: LAD-Left [place] Deviation (Mild left axis deviation of -20 degrees) P-Wave: Present QRS: Other (Incomplete right bundle branch block pattern. New Q waves in leads III and aVF unable to interpret it accurately due to low amplitude in these leads.) ST-T: Other (Nonspecific T wave flattening in leads I and aVL) EKG Interpretation Comments: Abnormal ECG Course - Vital Signs Last Recorded V/S: Last Vital Signs Temp 37.4 C 10/13/20 23:46 Pulse 56 L 10/14/20 05:45 Resp 17 10/14/20 05:45 BP 101/58 L 10/14/20 05:45 Pulse Ox 99 10/14/20 05:45 - Orders/Labs/Meds Orders: Active Orders 24 hr Category Date Time Status Chest 1V Frontal [CR] Stat Exams 10/13/20 23:20 Taken BLOOD CULTURE [MREF] Stat Lab 10/13/20 23:45 Received BLOOD CULTURE [MREF] Stat Lab 10/13/20 23:50 Received Acetaminophen [TylenoL] Med 10/14/20 03:30 Active 650 mg PO Q4H PRN Dextrose 5%-0.9% NaCl [Dextrose 5%-Normal Saline] 1,000 Med 10/13/20 23:30 Active ml IV ASDIRECTED EPINEPHrine [Adrenalin] Med 10/14/20 01:24 Active 0.3 mg IM ONETIME PRN Famotidine [Pepcid] Med 10/14/20 01:24 Active 20 mg IVPUSH ONETIME PRN Ketorolac [Toradol] Med 10/13/20 23:30 Active 30 mg IVPUSH ONETIME Sodium Chloride 0.9% [Saline Flush] Med 10/14/20 01:30 Active 30 ml FLUSH ASDIRECTED diphenhydrAMINE [Benadryl] Med 10/14/20 01:24 Active 50 mg IVPUSH ONETIME PRN methylPREDNISolone Sod Succ [Solu-MEDROL] Med 10/14/20 01:24 Active 125 mg IVPUSH ONETIME PRN Blood Culture x2 Reflex Set [OM.PC] Stat Oth 10/13/20 23:22 Ordered Medication Orders Acetaminophen (Acetaminophen 325 Mg Tab) 650 mg PO Q4H PRN PRN Reason: Pain Diphenhydramine HCl (Diphenhydramine 50 Mg/Ml Sdv) 50 mg IVPUSH ONETIME PRN PRN Reason: hypersensitivity reaction Epinephrine HCl (Epinephrine 1 Mg/Ml Sdv) 0.3 mg IM ONETIME PRN PRN Reason: hypersensitivity reaction Famotidine (Famotidine 20 Mg/2 Ml Sdv) 20 mg IVPUSH ONETIME PRN PRN Reason: hypersensitivity reaction Dextrose/Sodium Chloride (Dextrose 5%-Normal Saline) 1,000 mls @ 500 mls/hr IV ASDIRECTED [facility] Last Admin: 10/13/20 23:47 Dose: 500 mls/hr Documented by: RONAK Ketorolac Tromethamine (Ketorolac 30 Mg/Ml Sdv) 30 mg IVPUSH ONETIME [facility] Last Admin: 10/13/20 23:50 Dose: 30 mg Documented by: RONAK Methylprednisolone Sodium Succinate (Methylprednisolone Sodium Succinate 125 Mg/2 Ml Sdv) 125 mg IVPUSH ONETIME PRN PRN Reason: hypersensitivity reaction Sodium Chloride (Sodium Chloride 0.9% 10 Ml Syringe) 30 ml FLUSH ASDIRECTED [facility] Labs: Laboratory Tests 10/13/20 10/13/20 10/13/20 Range/Units 23:00 23:00 23:00 WBC 5.77 (4.23-9.07) K/mm3 RBC 4.02 L (4.63-6.08) M/mm3 Hgb 12.8 L D (13.7-17.5) gm/dl Hct 39.6 L (40.1-51.0) % MCV 98.5 H (79.0-92.2) fl MCH 31.8 (25.7-32.2) pg MCHC 32.3 (32.2-35.5) g/dl RDW Std Deviation 56.1 H (35.1-43.9) fL Plt Count 175 (163-337) K/mm3 MPV 10.2 (9.4-12.3) fl Neut % (Auto) 67.1 (34.0-67.9) % Lymph % (Auto) 14.4 L (21.8-53.1) % [place] % (Auto) 17.7 H (5.3-12.2) % Eos % (Auto) 0.3 L (0.8-7.0) Baso % (Auto) 0.2 (0.1-1.2) % Neut # (Auto) 3.87 (1.78-5.38) K/mm3 Lymph # (Auto) 0.83 L (1.32-3.57) K/mm3 [place] # (Auto) 1.02 H (0.30-0.82) K/mm3 Eos # (Auto) 0.02 L (0.04-0.54) K/mm3 Baso # (Auto) 0.01 (0.01-0.08) K/mm3 D-Dimer, Quantitative (0.19-0.50) mg/L Sodium 139 (136-145) mEq/L Potassium 4.6 (3.5-5.1) mEq/L Chloride 106 (98-107) mEq/L Carbon Dioxide 24 (21-32) mEq/L Anion Gap 13.6 (5-15) BUN 22 H (7-18) mg/dL Creatinine 2.2 H (0.7-1.3) mg/dL Est Cr Clr Drug Dosing TNP Estimated GFR (MDRD) 30 (>60) mL/min BUN/Creatinine Ratio 10.0 L (14-18) Glucose 121 H (70-99) mg/dL Lactic Acid (0.4-2.0) mmol/L Calcium 8.6 (8.5-10.1) mg/dL Magnesium 1.8 (1.8-2.4) mg/dL Ferritin (26-388) ng/ml Total Bilirubin 0.3 (0.2-1.0) mg/dL AST 64 H (15-37) U/L ALT 69 H (16-63) U/L Alkaline Phosphatase 114 (46-116) U/L Lactate Dehydrogenase 219 (85-227) U/L Troponin I < 0.017 (0.00-0.056) ng/mL C-Reactive Protein (<1.0) mg/dL NT-Pro-B Natriuret Pep (0-125) pg/mL Total Protein 7.0 (6.4-8.2) g/dl Albumin 3.7 (3.4-5.0) g/dl Globulin 3.3 gm/dL Albumin/Globulin Ratio 1.1 (1-2) SARS-CoV-2 RNA (MANPREET) Positive H (NEGATIVE) 10/13/20 10/13/20 10/13/20 Range/Units 23:00 23:00 23:00 WBC (4.23-9.07) K/mm3 RBC (4.63-6.08) M/mm3 Hgb (13.7-17.5) gm/dl Hct (40.1-51.0) % MCV (79.0-92.2) fl MCH (25.7-32.2) pg MCHC (32.2-35.5) g/dl RDW Std Deviation (35.1-43.9) fL Plt Count (163-337) K/mm3 MPV (9.4-12.3) fl Neut % (Auto) (34.0-67.9) % Lymph % (Auto) (21.8-53.1) % [place] % (Auto) (5.3-12.2) % Eos % (Auto) (0.8-7.0) Baso % (Auto) (0.1-1.2) % Neut # (Auto) (1.78-5.38) K/mm3 Lymph # (Auto) (1.32-3.57) K/mm3 [place] # (Auto) (0.30-0.82) K/mm3 Eos # (Auto) (0.04-0.54) K/mm3 Baso # (Auto) (0.01-0.08) K/mm3 D-Dimer, Quantitative 3.92 H (0.19-0.50) mg/L Sodium (136-145) mEq/L Potassium (3.5-5.1) mEq/L Chloride (98-107) mEq/L Carbon Dioxide (21-32) mEq/L Anion Gap (5-15) BUN (7-18) mg/dL Creatinine (0.7-1.3) mg/dL Est Cr Clr Drug Dosing Estimated GFR (MDRD) (>60) mL/min BUN/Creatinine Ratio (14-18) Glucose (70-99) mg/dL Lactic Acid (0.4-2.0) mmol/L Calcium (8.5-10.1) mg/dL Magnesium (1.8-2.4) mg/dL Ferritin 417 H (26-388) ng/ml Total Bilirubin (0.2-1.0) mg/dL AST (15-37) U/L ALT (16-63) U/L Alkaline Phosphatase (46-116) U/L Lactate Dehydrogenase (85-227) U/L Troponin I (0.00-0.056) ng/mL C-Reactive Protein (<1.0) mg/dL NT-Pro-B Natriuret Pep 410 H (0-125) pg/mL Total Protein (6.4-8.2) g/dl Albumin (3.4-5.0) g/dl Globulin gm/dL Albumin/Globulin Ratio (1-2) SARS-CoV-2 RNA (MANPREET) (NEGATIVE) 10/13/20 10/13/20 10/14/20 Range/Units 23:00 23:00 05:45 WBC (4.23-9.07) K/mm3 RBC (4.63-6.08) M/mm3 Hgb (13.7-17.5) gm/dl Hct (40.1-51.0) % MCV (79.0-92.2) fl MCH (25.7-32.2) pg MCHC (32.2-35.5) g/dl RDW Std Deviation (35.1-43.9) fL Plt Count (163-337) K/mm3 MPV (9.4-12.3) fl Neut % (Auto) (34.0-67.9) % Lymph % (Auto) (21.8-53.1) % [place] % (Auto) (5.3-12.2) % Eos % (Auto) (0.8-7.0) Baso % (Auto) (0.1-1.2) % Neut # (Auto) (1.78-5.38) K/mm3 Lymph # (Auto) (1.32-3.57) K/mm3 [place] # (Auto) (0.30-0.82) K/mm3 Eos # (Auto) (0.04-0.54) K/mm3 Baso # (Auto) (0.01-0.08) K/mm3 D-Dimer, Quantitative (0.19-0.50) mg/L Sodium 143 (136-145) mEq/L Potassium 4.3 (3.5-5.1) mEq/L Chloride 111 H (98-107) mEq/L Carbon Dioxide 22 (21-32) mEq/L Anion Gap 14.3 (5-15) BUN 26 H (7-18) mg/dL Creatinine 2.5 H (0.7-1.3) mg/dL Est Cr Clr Drug Dosing TNP Estimated GFR (MDRD) 26 (>60) mL/min BUN/Creatinine Ratio 10.4 L (14-18) Glucose 112 H (70-99) mg/dL Lactic Acid 1.3 (0.4-2.0) mmol/L Calcium 7.8 L (8.5-10.1) mg/dL Magnesium (1.8-2.4) mg/dL Ferritin (26-388) ng/ml Total Bilirubin 0.3 (0.2-1.0) mg/dL AST 49 H (15-37) U/L ALT 59 (16-63) U/L Alkaline Phosphatase 100 (46-116) U/L Lactate Dehydrogenase (85-227) U/L Troponin I < 0.017 (0.00-0.056) ng/mL C-Reactive Protein 3.0 H* (<1.0) mg/dL NT-Pro-B Natriuret Pep (0-125) pg/mL Total Protein 6.3 L (6.4-8.2) g/dl Albumin 3.2 L (3.4-5.0) g/dl Globulin 3.1 gm/dL Albumin/Globulin Ratio 1.0 (1-2) SARS-CoV-2 RNA (MANPREET) (NEGATIVE) 10/14/20 Range/Units 05:45 WBC (4.23-9.07) K/mm3 RBC (4.63-6.08) M/mm3 Hgb (13.7-17.5) gm/dl Hct (40.1-51.0) % MCV (79.0-92.2) fl MCH (25.7-32.2) pg MCHC (32.2-35.5) g/dl RDW Std Deviation (35.1-43.9) fL Plt Count (163-337) K/mm3 MPV (9.4-12.3) fl Neut % (Auto) (34.0-67.9) % Lymph % (Auto) (21.8-53.1) % [place] % (Auto) (5.3-12.2) % Eos % (Auto) (0.8-7.0) Baso % (Auto) (0.1-1.2) % Neut # (Auto) (1.78-5.38) K/mm3 Lymph # (Auto) (1.32-3.57) K/mm3 [place] # (Auto) (0.30-0.82) K/mm3 Eos # (Auto) (0.04-0.54) K/mm3 Baso # (Auto) (0.01-0.08) K/mm3 D-Dimer, Quantitative (0.19-0.50) mg/L Sodium (136-145) mEq/L Potassium (3.5-5.1) mEq/L Chloride (98-107) mEq/L Carbon Dioxide (21-32) mEq/L Anion Gap (5-15) BUN (7-18) mg/dL Creatinine (0.7-1.3) mg/dL Est Cr Clr Drug Dosing Estimated GFR (MDRD) (>60) mL/min BUN/Creatinine Ratio (14-18) Glucose (70-99) mg/dL Lactic Acid 1.0 (0.4-2.0) mmol/L Calcium (8.5-10.1) mg/dL Magnesium (1.8-2.4) mg/dL Ferritin (26-388) ng/ml Total Bilirubin (0.2-1.0) mg/dL AST (15-37) U/L ALT (16-63) U/L Alkaline Phosphatase (46-116) U/L Lactate Dehydrogenase (85-227) U/L Troponin I (0.00-0.056) ng/mL C-Reactive Protein (<1.0) mg/dL NT-Pro-B Natriuret Pep (0-125) pg/mL Total Protein (6.4-8.2) g/dl Albumin (3.4-5.0) g/dl Globulin gm/dL Albumin/Globulin Ratio (1-2) SARS-CoV-2 RNA (MANPREET) (NEGATIVE) Meds: Medications Generic Name Dose Route Start Last Admin Trade Name Delgado PRN Reason Stop Dose Admin Acetaminophen 650 mg 10/14/20 03:30 Acetaminophen 325 Mg Tab PO Q4H PRN Pain Diphenhydramine HCl 50 mg 10/14/20 01:24 Diphenhydramine 50 Mg/Ml Sdv IVPUSH ONETIME PRN hypersensitivity reaction Epinephrine HCl 0.3 mg 10/14/20 01:24 Epinephrine 1 Mg/Ml Sdv IM ONETIME PRN hypersensitivity reaction Famotidine 20 mg 10/14/20 01:24 Famotidine 20 Mg/2 Ml Sdv IVPUSH ONETIME PRN hypersensitivity reaction Dextrose/Sodium Chloride 1,000 mls @ 500 mls/hr 10/13/20 23:30 10/13/20 23:47 Dextrose 5%-Normal Saline IV 500 mls/hr ASDIRECTED JASON Administration Ketorolac Tromethamine 30 mg 10/13/20 23:30 10/13/20 23:50 Ketorolac 30 Mg/Ml Sdv IVPUSH 30 mg ONETIME JASON Administration Methylprednisolone Sodium Succinate 125 mg 10/14/20 01:24 Methylprednisolone Sodium Succinate 125 Mg/2 Ml Sdv IVPUSH ONETIME PRN hypersensitivity reaction Sodium Chloride 30 ml 10/14/20 01:30 Sodium Chloride 0.9% 10 Ml Syringe FLUSH ASDIRECTED JASON Discontinued Medications Generic Name Dose Route Start Last Admin Trade Name Delgado PRN Reason Stop Dose Admin Acetaminophen 975 mg 10/13/20 23:19 10/13/20 23:46 Acetaminophen 325 Mg Tab PO 10/13/20 23:20 975 mg ONETIME ONE Administration Enoxaparin Sodium 75 mg 10/14/20 03:08 10/14/20 03:18 Enoxaparin 80 Mg/0.8 Ml Syringe SUBCUT 10/14/20 03:09 75 mg ONETIME ONE Administration CASIRIVIMAB/IMDEVIMAB 10 ml/ 110 mls @ 220 mls/hr 10/14/20 01:24 10/14/20 02:26 Sodium Chloride IV 10/14/20 01:53 220 mls/hr ONETIME ONE Administration Sodium Chloride 500 mls @ 150 mls/hr 10/14/20 03:07 10/14/20 03:09 Normal Saline IV 10/14/20 06:26 150 mls/hr .BOLUS ONE Administration - Radiology Interpretation Free Text/Narrative:: 70-year-old male presents to the ED with generalized myalgia fever chills headache and sore throat starting 24 hours ago. Patient was exposed to his [id number]-rpi 4 days ago when they went out to eat at [place], [place]. Since then his [id number]-dv-[id number] been diagnosed with COVID-19 illness. Patient has not received any Covid vaccination. History reveals by med list that he is a type II diabetic and is hypertensive. Medically no positive findings on exam other than feeling mildly warm to touch. He reports he is so weak that he cannot walk and paramedics indicate that he was a total assist to get him out of the house. He does not normally use a cane or walker. He is alert oriented answers all questions appropriately. Plan IV fluids at 500 mils an hour. He ate only a hot dog earlier today. We will repeat Tylenol 9 7 5 mg/h for fever relief. Toradol 30 mg IV for pain relief. COVID-19 screen chest x-ray and COVID-19 labs including blood cultures x2 to be done. - Re-Assessments/Exams Free Text/Narrative Re-Assessment/Exam: 10/13/20 23:58 White count is normal at 5.77. Auto differential shows 67% neutrophils. Hemoglobin is 12.8 with hematocrit of 39.6 platelet count is 175,000 D-dimer is elevated at 3.92. COVID-19 screen is positive. 10/14/20 00:31 Sodium is 139 with a potassium of 4.6. Chloride is 106 with a bicarb of 24. Anion gap is 13.6. BUN is 22 with a creatinine of 2.2 estimated GFR is only 30. Therefore kidney function is not good enough to allow contrast for CT pulmonary angiogram. Glucose is 121 with a lactic acid of 1.3 calcium is 8.6 magnesium is 1.8 serum ferritin is elevated at 417. Total bilirubin is 0.3 with an AST of 64 and ALT of 69 alkaline phosphatase is 114. LDH is 219 troponin I is less than 0.017 C-reactive protein is 3.0 BNP is 410. Total protein 7.0 with an albumin fraction of 3.7 10/14/20 01:15: I have discussed the findings of the patient's labs with him and identified that he is indeed COVID-19 positive. He is still mildly febrile. He is willing to accept region cold and I did get did give him the sheet to read in this regard. I spoke with the patient Mr. Ricky newton to provide information about Regen-Cov dual monoclonal antibody treatment. I offered him the fax sheet for patients and caregivers to read and review. I stated the therapy has been approved by an emergency use authorization process that has not yet been fully FDA reviewed or approved. I shared potential risks for the therapy including acute allergic reactions and potential anaphylaxis. I discussed there are other potential treatment options that are currently not FDA approved to treat COVID-19. Offered the opportunity ask questions and all questions were answered. He wishes to proceed with the treatment and voices understanding in this regard. 10/14/20 03:07 Patient has completed his monoclonal antibody infusion at 0256. His blood pressure has fallen to 74/47. Heart rythym remains sinus bradycardia at 55min. O2 sats remained 95-97 %on room air. I am going to give him a 150 ml normal saline fluid bolus. I am going to give him Lovenox 75 mg subcu at this time due to elevated D-dimer with possible underlying pulmonary embolism for which we are not able to test for at this time due to very poor renal function with a GFR of only 30. Since evening blood pressure medications i.e. amlodipine and Flomax he was for his prostate were both withheld due to low blood pressure. He usually takes both of these at bedtime 10/14/20 03:41 Patient's blood pressure is slowly improving currently 80/47 with a mean arterial pressure of 58. Remains sinus bradycardia with O2 sats of 95% room air. He is currently receiving normal saline at 150 mils an hour. He has completed a full liter of D5 normal saline earlier in the evening. It is likely the patient is going to require admission to the hospital. Decision as to need for hospitalization will be made later this am. It is suspect he will require admission due to inability to ambulate at time of initial exam and with low BP I will have repeat labs drawn on this fellow at 0600 hrs. with a CMP and lactic acid level. 10/14/20 05:01 blood pressure is currently 90/60. Mean arterial pressure is 69. Sinus bradycardia at 51/min with O2 sats of 96 to 97% room air. 10/14/20 05:47 Blood pressure is currently 101/58 with a MAP of 72 heart rate is 59 sinus bradycardia with O2 sats of 100% room air 10/14/20 06:21 Patient has been a week for the last half hour or so since lab came to draw him. Blood pressure is improved to 118/68. He is alert oriented and able to answer questions appropriately. Of note the patient has not voided and does not feel that he needs to void. Plan will be to get him up and see if he is stable enough to walk on his own . He does not feel warm to touch at this time. He states he has been having the chills a bit off and on throughout the entire night. 10/14/20 06:29 nurses report the patient actually did very well getting up out of bed almost on his own volition. He is feeling good enough to try things at home. He states he was not hardly able to get around at all yesterday probably due to fever plus the myalgia. He will only be able to take Tylenol as NSAIDs are relatively contraindicated due to his poor renal function. He can continue almost all of his other medications although I am somewhat leery of continuing amlodipine at this time and I will ask them to place it on hold for a few days until he is eating and drinking normally. 10/14/20 07:15 since family will be coming to pick him up. O2 sats improved to 97 to 100% on room air. He remains in a sinus bradycardia at 57/min. Blood pressure is currently 124/68. 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 insulin use: without longterm use Diabetes mellitus complication status: with kidney complications Diabetes mellitus complication detail: with chronic kidney disease Chronic renal insufficiency, stage III (moderate) Qualifiers: Chronic kidney disease stage 3 subtype: stage 3b (GFR 30-44) Qualified Code(s): N18.32 - Chronic kidney disease, stage 3b - Discharge Information *PRESCRIPTION DRUG MONITORING PROGRAM REVIEWED*: Not Applicable *COPY OF PRESCRIPTION DRUG MONITORING REPORT IN PATIENT SRINIVAS: Not Applicable Instructions: COVID-19 Frequently Asked Questions, COVID-19, COVID-19 Vaccine Information, 10 Things You Can Do to Manage Your COVID-19 Symptoms at Home - CDC (08/06/2019), COVID-19: How to Protect Yourself and Others - CDC, Frequently Asked Questions About COVID-19 Vaccination - [facility] (06/01/2020) Referrals: Ashley Bland, MANA[employer] [Primary Care Provider] - Forms: ED Department Discharge Additional Instructions: Evaluation in the emergency room overnight due to presentation with COVID-19 illness confirmed by laboratory testing. Chest x-ray done at this time does not reveal any signs of viral or Covid pneumonia. Oxygen levels are staying 96 to 97% on room air. Blood pressure is running a bit low and you required fluids to resuscitate you overnight. I would suggest placing her amlodipine blood pressure medication on hold for the next 3 days as blood pressure is running too low at this time. You will need to continue Tylenol 650 mg every 4 hours as needed for fever and body ache relief. He will be sent home with a pulse oximeter to place on your finger to monitor your blood oxygen levels ideally 4 times daily. You would need to return to the hospital if you are oxygen levels are persistently 88 or lower for more than 2 consecutive hours. You did receive dual monoclonal antibody therapy intravenously while in the hospital overnight. The goal of monoclonal antibody therapy is to try and give you immediate i mmunity to the COVID-19 virus and prevent worsening of your disease process and hopefully preventing hospitalization due to illness. You will need to self quarantine in your home for at least another week before you are no longer contagious to others. It is felt that this takes 10 to 12 days after the onset of infection to become noncontagious to other people. Continue all other medications as before. Follow-up with your personal care physician in 10 to 12 days time Sepsis Event Note (ED) - Evaluation Sepsis Screening Result: Possible Sepsis Risk - Focused Exam Vital Signs: Vital Signs Temp Temp Pulse Resp BP Pulse Ox 10/14/20 05:45 56 L 17 101/58 L 99 10/14/20 05:30 55 L 14 94/76 100 10/14/20 05:15 48 L 15 93/54 L 95 10/14/20 05:00 52 L 15 89/59 L 95 10/14/20 04:45 53 L 17 83/59 L 97 10/14/20 04:30 52 L 16 75/50 L 93 L 10/14/20 04:15 51 L 16 82/44 L 93 L 10/14/20 04:00 55 L 18 78/46 L 94 L 10/14/20 03:45 54 L 17 81/44 L 94 L 10/14/20 03:30 53 L 15 79/47 L 95 10/14/20 03:15 54 L 13 76/46 L 98 10/14/20 03:00 57 L 17 78/50 L 96 10/14/20 02:45 62 20 85/47 L 99 10/14/20 02:30 60 17 84/48 L 95 10/13/20 23:46 37.4 C 10/13/20 22:55 37.1 C 98 22 H 138/78 99 - My Orders Last 24 Hours: My Active Orders 10/13/20 23:20 Chest 1V Frontal [CR] Stat 10/13/20 23:22 Blood Culture x2 Reflex Set [OM.PC] Stat 10/13/20 23:30 Dextrose 5%-0.9% NaCl [Dextrose 5%-Normal Saline] 1,000 ml IV ASDIRECTED Ketorolac [Toradol] 30 mg IVPUSH ONETIME 10/13/20 23:45 BLOOD CULTURE [MREF] Stat 10/13/20 23:50 BLOOD CULTURE [MREF] Stat 10/14/20 01:24 EPINEPHrine [Adrenalin] 0.3 mg IM ONETIME PRN Famotidine [Pepcid] 20 mg IVPUSH ONETIME PRN diphenhydrAMINE [Benadryl] 50 mg IVPUSH ONETIME PRN methylPREDNISolone Sod Succ [Solu-MEDROL] 125 mg IVPUSH ONETIME PRN 10/14/20 01:30 Sodium Chloride 0.9% [Saline Flush] 30 ml FLUSH ASDIRECTED 10/14/20 03:30 Acetaminophen [TylenoL] 650 mg PO Q4H PRN - Assessment/Plan Last 24 Hours: My Active Orders 10/13/20 23:20 Chest 1V Frontal [CR] Stat 10/13/20 23:22 Blood Culture x2 Reflex Set [OM.PC] Stat 10/13/20 23:30 Dextrose 5%-0.9% NaCl [Dextrose 5%-Normal Saline] 1,000 ml IV ASDIRECTED Ketorolac [Toradol] 30 mg IVPUSH ONETIME 10/13/20 23:45 BLOOD CULTURE [MREF] Stat 10/13/20 23:50 BLOOD CULTURE [MREF] Stat 10/14/20 01:24 EPINEPHrine [Adrenalin] 0.3 mg IM ONETIME PRN Famotidine [Pepcid] 20 mg IVPUSH ONETIME PRN diphenhydrAMINE [Benadryl] 50 mg IVPUSH ONETIME PRN methylPREDNISolone Sod Succ [Solu-MEDROL] 125 mg IVPUSH ONETIME PRN 10/14/20 01:30 Sodium Chloride 0.9% [Saline Flush] 30 ml FLUSH ASDIRECTED 10/14/20 03:30 Acetaminophen [TylenoL] 650 mg PO Q4H PRN
[2020-10-13] MEDS ORDERED: Dextrose 5%-0.9% NaCl 1,000 ML IV SCH (23:30)
[2020-10-13] MEDS ORDERED: Ketorolac 30 MG/ML SDV IVPUSH SCH (23:30)
[2020-10-14] MEDS ORDERED: diphenhydrAMINE 50 MG/ML SDV IVPUSH PRN (01:24)
[2020-10-14] MEDS ORDERED: Famotidine 20 MG/2 ML SDV IVPUSH PRN (01:24)
[2020-10-14] MEDS ORDERED: EPINEPHrine 1 MG/ML SDV IM PRN (01:24)
[2020-10-14] MEDS ORDERED: methylPREDNISolone Sodium Succinate 125 MG/2 ML SDV IVPUSH PRN (01:24)
[2020-10-14] MEDS ORDERED: Sodium Chloride 0.9% 10 ML Syringe FLUSH SCH (01:30)
[2020-10-14] MEDS ORDERED: Sodium Chloride 0.9% 500 ML IV ONE (03:07)
[2020-10-14] MEDS ORDERED: Enoxaparin 80 MG/0.8 ML Syringe SUBCUT ONE (03:08)
[2020-10-14] MEDS ORDERED: Acetaminophen 325 MG Tab PO PRN (03:30)
[2020-10-14 05:58] VITALS: BP 101/58; PULSE 56
--- NOTE | 2020-10-14 07:24 | CR ---
Chest: Frontal view of the chest was obtained. Comparison: Prior chest x-ray 09/01/19. Heart size is within normal limits. Tortuous thoracic aorta is seen. Right shoulder prosthesis is noted. Scoliosis is noted within the spine as well as scattered degenerative change within the spine. Prior cervical spine surgery is noted. Impression: 1. Stable findings as noted above. 2. Nothing acute is appreciated on frontal chest x-ray. Diagnostic code #2
== END 2020-10-14 08:30 | disposition home or self-care (01) ==
LOC: JD.ED 22:52
DX: U07.1 COVID-19 (principal); I12.9 Hypertensive chronic kidney disease with stage 1 through stage 4 chronic kidney disease, or unspecified chronic kidney disease; E11.22 Type 2 diabetes mellitus with diabetic chronic kidney disease; N18.32 Chronic kidney disease, stage 3b; E78.00 Pure hypercholesterolemia, unspecified; K21.9 Gastro-esophageal reflux disease without esophagitis; N40.1 Benign prostatic hyperplasia with lower urinary tract symptoms; R33.8 Other retention of urine; M06.9 Rheumatoid arthritis, unspecified; Z87.891 Personal history of nicotine dependence; Z79.899 Other long term (current) drug therapy; Z88.8 Allergy status to other drugs, medicaments and biological substances; R06.09 Other forms of dyspnea
CPT/HCPCS: 36415; 71045; 80053; 82728; 83605; 83615; 83735; 83880; 84484; 85025; 85379; 86140; 87040; 93005; 96372; 99285; A9270; J1650; J1885; J7030; J7042; M0243; Q0243; U0002; 93010; 99284

== ENCOUNTER 2021-07-23 02:29 | Inpatient (IN) | payer MEDICARE, BC ==
[2021-07-23] MEDS ORDERED: Sodium Chloride 0.9% 1,000 ML IV ONE (03:04)
[2021-07-23 04:00] LABS: ESTIMATED GFR 31 mL/min (>60)
[2021-07-23] MEDS ORDERED: Sodium Chloride 0.9% 1,000 ML IV SCH (06:15)
[2021-07-23] MEDS ORDERED: REMDESIVIR 200 MG in Sodium Chloride 0.9% 250 ML IV ONE (06:22)
[2021-07-23] MEDS ORDERED: Acetaminophen 325 MG Tab PO PRN (07:54)
[2021-07-23] MEDS ORDERED: Ondansetron 4 MG/2 ML SDV IV PRN (07:54)
[2021-07-23] MEDS: Heparin Sodium 5,000 Units/ML Vial SUBCUT SCH ×2 (08:23→17:00)
[2021-07-23] MEDS: Tamsulosin 0.4 MG Cap.ER PO SCH (17:01)
[2021-07-23] MEDS: ClonazePAM 0.5 MG Tab PO SCH (20:17)
[2021-07-23] MEDS: Gabapentin 300 MG Cap PO SCH (20:17)
[2021-07-23] MEDS: Pravastatin 20 MG Tab PO SCH (20:18)
[2021-07-23] MEDS: Famotidine 20 MG Tab PO SCH (20:18)
[2021-07-23] MEDS: Sodium Bicarbonate 650 MG Tab PO SCH (20:18)
[2021-07-24] MEDS: Heparin Sodium 5,000 Units/ML Vial SUBCUT SCH ×3 (00:30→16:59)
[2021-07-24] MEDS: REMDESIVIR 100 MG in Sodium Chloride 0.9% 100 ML IV SCH (07:58)
[2021-07-24] MEDS: Tamsulosin 0.4 MG Cap.ER PO SCH ×2 (08:02→16:59)
[2021-07-24] MEDS: Lisinopril 5 MG Tab PO SCH (08:02)
[2021-07-24] MEDS: Aspirin 81 MG Tab.EC PO SCH (08:02)
[2021-07-24] MEDS: rOPINIRole 1 MG Tab PO SCH (08:02)
[2021-07-24] MEDS: Gabapentin 300 MG Cap PO SCH ×2 (08:03→20:30)
[2021-07-24] MEDS: Sodium Bicarbonate 650 MG Tab PO SCH ×2 (08:03→20:31)
[2021-07-24] MEDS: amLODIPine 5 MG Tab PO SCH (08:03)
[2021-07-24] MEDS: Famotidine 20 MG Tab PO SCH ×2 (08:03→20:30)
[2021-07-24] MEDS: Finasteride 5 MG Tab PO SCH (08:03)
[2021-07-24] MEDS ORDERED: Non-Formulary Medication 1 Each (Dulaglutide 1.5 MG/0.5 ML Pen) SQ SCH (08:05)
[2021-07-24] MEDS ORDERED: DULAGLUTIDE 1.5 MG/0.5 ML SUBCUT SCH ×2 (12:45)
[2021-07-24] MEDS: ClonazePAM 0.5 MG Tab PO SCH (20:30)
[2021-07-24] MEDS: Pravastatin 20 MG Tab PO SCH (20:30)
[2021-07-25] MEDS: Heparin Sodium 5,000 Units/ML Vial SUBCUT SCH ×2 (00:05→08:19)
[2021-07-25] MEDS: REMDESIVIR 100 MG in Sodium Chloride 0.9% 100 ML IV SCH (08:18)
[2021-07-25] MEDS: Gabapentin 300 MG Cap PO SCH (08:19)
[2021-07-25] MEDS: Famotidine 20 MG Tab PO SCH (08:19)
[2021-07-25] MEDS: amLODIPine 5 MG Tab PO SCH (08:19)
[2021-07-25] MEDS: Aspirin 81 MG Tab.EC PO SCH (08:19)
[2021-07-25] MEDS: rOPINIRole 1 MG Tab PO SCH (08:20)
[2021-07-25] MEDS: Tamsulosin 0.4 MG Cap.ER PO SCH (08:20)
[2021-07-25] MEDS: Sodium Bicarbonate 650 MG Tab PO SCH (08:20)
[2021-07-25] MEDS: Finasteride 5 MG Tab PO SCH (08:20)
[2021-07-25] MEDS: Lisinopril 5 MG Tab PO SCH (08:20)
[2021-07-25 11:49] VITALS: BP 108/52; PULSE 67
== END 2021-07-25 13:00 | disposition home or self-care (01) | DRG 178 ==
LOC: JD.ED 02:29 → JD.MS 07:44
PROVIDERS: ADMIT Internal Medicine; ATTEND Internal Medicine
PROC: XW033E5 Introduction of Remdesivir Anti-infective into Peripheral Vein, Percutaneous Approach, New Technology Group 5 (ICD-10-PCS; principal; 2021-07-23)
PROC: 8E0ZXY6 Isolation (ICD-10-PCS; 2021-07-23)
DX: U07.1 COVID-19 (principal); R53.1 Weakness; I69.354 Hemiplegia and hemiparesis following cerebral infarction affecting left non-dominant side; N18.9 Chronic kidney disease, unspecified; N18.32 Chronic kidney disease, stage 3b; M21.372 Foot drop, left foot; N40.0 Benign prostatic hyperplasia without lower urinary tract symptoms; M19.90 Unspecified osteoarthritis, unspecified site; K21.9 Gastro-esophageal reflux disease without esophagitis; R13.10 Dysphagia, unspecified; I12.9 Hypertensive chronic kidney disease with stage 1 through stage 4 chronic kidney disease, or unspecified chronic kidney disease; G80.9 Cerebral palsy, unspecified; Z86.73 Personal history of transient ischemic attack (TIA), and cerebral infarction without residual deficits; Z86.16 Personal history of COVID-19; E55.9 Vitamin D deficiency, unspecified; Z85.51 Personal history of malignant neoplasm of bladder; Z85.828 Personal history of other malignant neoplasm of skin; E11.22 Type 2 diabetes mellitus with diabetic chronic kidney disease; E78.00 Pure hypercholesterolemia, unspecified; Z28.310 Unvaccinated for COVID-19; M06.9 Rheumatoid arthritis, unspecified; G25.81 Restless legs syndrome; Z96.642 Presence of left artificial hip joint; Z90.49 Acquired absence of other specified parts of digestive tract; Z98.49 Cataract extraction status, unspecified eye; Z87.891 Personal history of nicotine dependence; Z88.8 Allergy status to other drugs, medicaments and biological substances; Z79.82 Long term (current) use of aspirin; Z79.899 Other long term (current) drug therapy
CPT/HCPCS: 36415; 71045; 80053; 81001; 82009; 83605; 83735; 84484; 85007; 85027; 86140; 87040 ×2; 93005; J0248; J7030; J7050; U0002; 82947; 96361; 96365; 97116-GP; 97161-GP; 99285-25; A9270-GY; J1644

== ENCOUNTER 2021-08-22 09:53 | Day surgery (SDC) | payer MEDICARE, BC ==
[~2021-08-22 09:53] MED LIST changes: +Lidocaine 1%/Sod Bicarbonate in NS 8.4% 1 ML Syringe IDERM PRN; -Lidocaine 1%/Sod Bicarbonate in NS 8.4% 1 ML Syringe PRN; +Sodium Chloride 0.9% 10 ML Syringe FLUSH SCH
[2021-08-22] MEDS ORDERED: Propofol 200 MG/20 ML SDV ONE ×2 (12:11→12:36)
[2021-08-22] MEDS ORDERED: Lidocaine 1% 4 ML ONE (12:12)
[2021-08-22 18:41] VITALS: BP 111/71; PULSE 60
== END 2021-08-22 14:05 | disposition home or self-care (01) ==
LOC: JD.SDS 09:53
PROVIDERS: ATTEND Surgery
DX: K22.2 Esophageal obstruction (principal); K20.80 Other esophagitis without bleeding; K21.9 Gastro-esophageal reflux disease without esophagitis; M06.9 Rheumatoid arthritis, unspecified; E78.00 Pure hypercholesterolemia, unspecified; N18.9 Chronic kidney disease, unspecified; E11.22 Type 2 diabetes mellitus with diabetic chronic kidney disease; I12.9 Hypertensive chronic kidney disease with stage 1 through stage 4 chronic kidney disease, or unspecified chronic kidney disease; E55.9 Vitamin D deficiency, unspecified; E53.8 Deficiency of other specified B group vitamins; Z86.16 Personal history of COVID-19; Z98.890 Other specified postprocedural states; Z90.49 Acquired absence of other specified parts of digestive tract; Z79.899 Other long term (current) drug therapy; Z86.73 Personal history of transient ischemic attack (TIA), and cerebral infarction without residual deficits; Z79.82 Long term (current) use of aspirin; Z88.8 Allergy status to other drugs, medicaments and biological substances; Z87.891 Personal history of nicotine dependence
CPT/HCPCS: 43239; 43249; 82947; J2704; J7120; 00731; 99100

== ENCOUNTER 2021-11-30 07:48 | Day surgery (SDC) | payer MEDICARE, BC ==
[2021-11-30] MEDS ORDERED: Propofol 200 MG/20 ML SDV ONE ×2 (08:32→08:34)
[2021-11-30] MEDS ORDERED: Midazolam 1 MG/ML 2 ML SDV ONE (08:34)
[2021-11-30] MEDS ORDERED: Lidocaine 1% 4 ML ONE (09:10)
[2021-11-30 13:15] VITALS: BP 110/61; PULSE 69
== END 2021-11-30 11:05 | disposition home or self-care (01) ==
LOC: JD.SDS 07:48
PROVIDERS: ATTEND Surgery
DX: Z12.11 Encounter for screening for malignant neoplasm of colon (principal); K52.9 Noninfective gastroenteritis and colitis, unspecified; K29.70 Gastritis, unspecified, without bleeding; R13.10 Dysphagia, unspecified; K57.30 Diverticulosis of large intestine without perforation or abscess without bleeding; K21.9 Gastro-esophageal reflux disease without esophagitis; K64.9 Unspecified hemorrhoids; G43.909 Migraine, unspecified, not intractable, without status migrainosus; E55.9 Vitamin D deficiency, unspecified; E78.5 Hyperlipidemia, unspecified; B37.81 Candidal esophagitis; E11.22 Type 2 diabetes mellitus with diabetic chronic kidney disease; I12.9 Hypertensive chronic kidney disease with stage 1 through stage 4 chronic kidney disease, or unspecified chronic kidney disease; N18.30 Chronic kidney disease, stage 3 unspecified; Z90.49 Acquired absence of other specified parts of digestive tract; Z98.890 Other specified postprocedural states; Z80.0 Family history of malignant neoplasm of digestive organs; Z86.16 Personal history of COVID-19; Z88.8 Allergy status to other drugs, medicaments and biological substances; Z87.891 Personal history of nicotine dependence; Z85.51 Personal history of malignant neoplasm of bladder; Z86.010 Personal history of colon polyps
CPT/HCPCS: 43239; 45380; 82947; 87102; J2704; J7120; 00813; J2250

== ENCOUNTER 2023-05-30 15:32 | Emergency (ER) | payer MEDICARE, BC ==
[2023-05-30 16:02] VITALS: BP 124/65; PULSE 73
[2023-05-30] MEDS: Lidocaine 1% 10 ML MDV INJECT ONE (17:43)
== END 2023-05-30 19:25 | disposition home or self-care (01) ==
LOC: JD.ED 15:32 → SUPCPDRO 15:32 → JD.ED 19:25
DX: S01.311A Laceration without foreign body of right ear, initial encounter (principal); E78.00 Pure hypercholesterolemia, unspecified; I10 Essential (primary) hypertension; E11.9 Type 2 diabetes mellitus without complications; Z86.16 Personal history of COVID-19; Z88.8 Allergy status to other drugs, medicaments and biological substances; Z90.49 Acquired absence of other specified parts of digestive tract; Z79.899 Other long term (current) drug therapy; W01.10XA Fall on same level from slipping, tripping and stumbling with subsequent striking against unspecified object, initial encounter
CPT/HCPCS: 12013; 99283; J3490

== ENCOUNTER 2023-05-31 07:48 | Emergency (ER) | payer MEDICARE, BC ==
[2023-05-31 08:01] VITALS: PULSE 58
[2023-05-31 08:51] VITALS: BP 117/69
== END 2023-05-31 08:33 | disposition home or self-care (01) ==
LOC: JD.ED 07:48
DX: Z48.00 Encounter for change or removal of nonsurgical wound dressing (principal); E78.00 Pure hypercholesterolemia, unspecified; I10 Essential (primary) hypertension; E11.9 Type 2 diabetes mellitus without complications; Z88.8 Allergy status to other drugs, medicaments and biological substances; Z79.899 Other long term (current) drug therapy; Z90.49 Acquired absence of other specified parts of digestive tract; Z86.16 Personal history of COVID-19
CPT/HCPCS: 99282; 99283